=== PATIENT | female | born 1955 | race Caucasian/White ===

== ENCOUNTER 2020-11-24 08:38 | Observation (INO) | payer OTHER ==
--- OUTSIDE RECORDS SUMMARY | 2020-11-24 08:44 | XMS REPORT | Continuity of Care Document ---
:1955 Author Organization [facility] t Address [address] [place] [address] Care Team Providers Name Role Phone Doctor Unassigned, Name Attending Clinician Unavailable Michael HUYNH Attending Clinician Jazlyn HUYNH S Attending Clinician Osei HUYNH Attending Clinician Pob1, Care Clinic Attending Clinician Unavailable Osei HUYNH Admitting Clinician Problems This patient has no known problems. Allergies, Adverse Reactions, Alerts This patient has no known allergies or adverse reactions. Medications This patient has no known medications. Procedures This patient has no known procedures. Encounters Start End Encounter Admission Attending Care Care Encounter Source Date/Time Date/Time Type Type Clinicians Facility Department ID 2020-05-06 2020-05-06 Outpatient [facility]BL [id number] 12:26:00 12:26:00 2019-11-04 2019-11-04 Orders Doctor PUENTE [id number] 00:00:00 00:00:00 Only UnassDARREL irizarry [id number] Reform [facility] [id number] 2019-10-15 2019-10-16 Emergency Anjel Rodriguez [facility] [id number] 17:09:10 18:24:00 Montserrat Hobson [id number] Chantelle Franz [id number] [place] [id number] 2019-10-15 2019-10-15 Urgent Pob1, Acute [facility] [id number] 16:00:05 16:20:05 [facility] [id number] [place] [id number] [place] [phone] [address] Results This patient has no known results.
[2020-11-24 09:13] LABS: Absolute Lymphocytes (CBC) 1.9 K/uL (0.7-4.9); Basophils % 1.7 % (0-1.3); Lymphocytes % 26.4 % (15.3-44.8); MPV 9.3 fL (7.6-11.3); RBC Red Blood Cell Count 4.88 M/uL (3.86-4.86)
[2020-11-24 09:21] LABS: Protime INR 1.04
[2020-11-24] MEDS ORDERED: NA CHLORIDE 0.9% 1,000 ML ONE (09:25)
[2020-11-24] MEDS ORDERED: FAMOTIDINE 20 MG/2 ML VIAL IV ONE (09:25)
[2020-11-24] MEDS ORDERED: MORPHINE 2 MG/ML SYR ONE (09:25)
[2020-11-24] MEDS ORDERED: ONDANSETRON 4 MG/2 ML VIAL ONE ×2 (09:25→13:26)
[2020-11-24 09:36] LABS: ALT/SGPT 36 U/L (12-78); AST/SGOT 31 U/L (15-37); Albumin 4.3 g/dL (3.4-5.0); Alkaline Phosphatase 85 U/L (45-117); BUN Blood Urea Nitrogen 23 mg/dL (7-18); Bicarbonate 25 mmol/L (21-32); Bilirubin Direct 0.2 mg/dL (0-0.2); Bilirubin Total 1.2 mg/dL (0.2-1.0); Glucose Level 107 mg/dL (74-106); Lipase 108 U/L (73-393); Magnesium 2.1 mg/dL (1.8-2.4); NT PRO-BNP 521 pg/mL (<125); Potassium 4.7 mmol/L (3.5-5.1); Protein, Total 8.4 g/dL (6.4-8.2); Sodium Level 125 mmol/L (136-145); Troponin (Emerg Dept Use Only) < 0.02 ng/mL (0.0-0.045)
[2020-11-24 09:59] LABS: Platelet Estimate ADEQ; White Blood Cell Scan OK (OK)
[2020-11-24 10:00] LABS: Blood Morphology Comment NOT SEEN (NOT SEEN); Platelets, Giant NOTED
--- NOTE | 2020-11-24 10:15 | ER ---
Nurse's Notes [facility] Name: Alejandrina Russo Age: 65 yrs Sex: Female : 1955 Arrival Date: 11/24/2020 Time: 08:[address] Private MD: Diagnosis: Hypo-osmolality and hyponatremia;Vomiting;Weakness;Other malaise and fatigue Presentation: 11/24 08:44 Chief complaint: Patient states: dry heaving, n/v, RUQ pain, chills x 2 days. Denies sv diarrhea. Coronavirus screen: Client denies travel out of the [place] in the last 14 days. At this time, the client does not indicate any symptoms associated with coronavirus-19. Ebola Screen: No symptoms or risks identified at this time. Risk Assessment: Do you want to hurt yourself or someone else? Patient reports no desire to harm self or others. Onset of symptoms was November 22, 2020. 08:44 Method Of Arrival: Ambulatory sv 08:44 Acuity: HE 2 sv 08:46 Initial Sepsis Screen: Does the patient meet any 2 criteria? HR > 90 bpm. No. Patient's sv initial sepsis screen is negative. Does the patient have a suspected source of infection? No. Patient's initial sepsis screen is negative. Historical: - Allergies: 08:45 No Known Allergies; sv - PMHx: 08:45 None; sv - PSHx: 08:45 R mastectomy; abdomen; Spleenectomy; sv - Immunization history:: Client reports having NOT received the Covid vaccine. - Social history:: Smoking status: Reported history of juuling and/or vaping. Screenin:14 Abuse screen: Denies threats or abuse. Denies injuries from another. Nutritional jl7 screening: No deficits noted. Tuberculosis screening: No symptoms or risk factors identified. Fall Risk IV access (20 points). Total Craig Fall Scale indicates No Risk (0-24 pts). Assessment: 09:10 General: Appears in no apparent distress. uncomfortable, Behavior is calm, cooperative, jl7 appropriate for age. Pain: Complains of pain in right upper quadrant Pain currently is 8 out of 10 on a pain scale. Pain began 2-3 days ago. Is continuous. Neuro: Level of Consciousness is awake, alert, obeys commands, Oriented to person, place, time, situation. Cardiovascular: Patient's skin is warm and dry. Respiratory: Airway is patent Respiratory effort is even, unlabored, Respiratory pattern is regular, symmetrical. GI: Abdomen is non-distended, Reports upper abdominal pain, nausea, vomiting. Derm: Skin is pink, warm \T\ dry. 09:46 Reassessment: Patient appears in no apparent distress at this time. Patient states jl7 feeling better. Patient states symptoms have improved. 10:28 Reassessment: Patient appears in no apparent distress at this time. No changes from jl7 previously documented assessment. Patient and/or family updated on plan of care and expected duration. Pain level reassessed. Patient is alert, oriented x 3, equal unlabored respirations, skin warm/dry/pink. 11:30 Reassessment: Patient appears in no apparent distress at this time. No changes from jl7 previously documented assessment. Patient and/or family updated on plan of care and expected duration. Pain level reassessed. Patient is alert, oriented x 3, equal unlabored respirations, skin warm/dry/pink. Patient denies pain at this time. 12:30 Reassessment: Patient appears in no apparent distress at this time. No changes from jl7 previously documented assessment. Patient and/or family updated on plan of care and expected duration. Pain level reassessed. Patient is alert, oriented x 3, equal unlabored respirations, skin warm/dry/pink. 13:10 Reassessment: Chari Jennings NP gave VO for 4 mg Zofran IVP, administered as ordered. jl7 Vital Signs: 08:46 BP 141 / 112; Pulse 104; Resp 20; Temp 98(O); Pulse Ox 99% on R/A; Weight 49.9 kg; sv Height 5 ft. 7 in. (170.18 cm); 09:14 BP 133 / 82; Pulse 86; Resp 15; Pulse Ox 100% ; jl7 09:46 BP 133 / 97; Pulse 74; Resp 15; Pulse Ox 100% ; jl7 10:28 BP 106 / 61; Pulse 65; Resp 15; Pulse Ox 100% ; jl7 12:31 BP 135 / 94; Pulse 66; Resp 15; Pulse Ox 97% on R/A; jl7 08:46 Body Mass Index 17.23 (49.90 kg, 170.18 cm) sv ED Course: 08:39 Patient arrived in ED. as 08:45 Triage completed. sv 08:48 Arm band placed on. sv 08:49 Jigar Cook MD is Attending Physician. celeste 08:57 Jared Bryan, MITESH is Primary Nurse. jl7 09:14 Patient has correct armband on for positive identification. Bed in low position. Call jl7 light in reach. Side rails up X 1. satellite project site monitor on. Pulse ox on. NIBP on. 09:14 Initial lab(s) drawn, by ED staff, sent to lab. COVID swab sent to lab. Inserted saline jl7 lock: 20 gauge in left antecubital area, using aseptic technique. ,using aseptic technique. inserted by , private security guard Blood collected. 09:17 XRAY Chest (1 view) In Process Unspecified. EDMS 09:25 US Abdomen Limited In Process Unspecified. EDMS 09:46 EKG done, by ED staff, reviewed by Jigar Cook MD. jl7 09:59 CT Abd/Pelvis - IV Contrast Only In Process Unspecified. EDMS 10:11 Fernando Cruz is Hospitalizing Provider. [facility] 12:30 No provider procedures requiring assistance completed. Patient admitted, IV remains in jl7 place. intact, No redness/swelling at site. Administered Medications: 09:06 Drug: Zofran (Ondansetron) 4 mg Route: IVP; Site: left antecubital; jl7 09:46 Follow up: Response: Nausea is decreased jl7 09:07 Drug: morphine 2 mg Route: IVP; Site: left antecubital; jl7 09:46 Follow up: Response: No adverse reaction; Pain is decreased jl7 09:40 Drug: NS 0.9% 1000 ml Route: IV; Rate: 1 bolus; Site: left antecubital; jl7 11:00 Follow up: Response: No adverse reaction; IV Status: Completed infusion; IV Intake: jl7 1000ml 09:40 Drug: Pepcid (famotidine) 20 mg Route: IVP; Site: left antecubital; jl7 12:32 Follow up: Response: No adverse reaction jl7 13:10 Drug: Zofran (Ondansetron) 4 mg Route: IVP; Site: left antecubital; jl7 13:18 Follow up: Response: Nausea is decreased jl7 Intake: 11:00 IV: 1000ml; Total: 1000ml. jl7 Outcome: 10:15 Decision to Hospitalize by Provider. celeste 13:10 Admitted to Med/surg accompanied by tech, via wheelchair, room 218, on monitor, Report jl7 called to MITESH Espitia 13:10 Condition: stable 13:10 Discharge instructions given to patient, family, Instructed on the need for admit, Demonstrated understanding of instructions. 13:19 Patient left the ED. jl7 Signatures: Dispatcher [employer] Elba Momin, MITESH RN Jigar Monsivais MD MD cha Martinez, Amelia as Leal, Jahala, RN RN jl7 Corrections: (The following items were deleted from the chart) 08:48 08:44 Acuity: HE 3 [facility] 09:45 09:14 Inserted saline lock: 22 gauge in left antecubital area, using aseptic technique. jl7 Blood collected. jl7
--- NOTE | 2020-11-24 10:16 | RAD REPORT ---
EXAM DESCRIPTION: CT - Abdomen Pelvis W Contrast - 11/24/2020 9:59 am CLINICAL HISTORY: Abdominal pain, vomiting and diarrhea. COMPARISON: 02/05/2020 TECHNIQUE: Biphasic, helical CT imaging of the abdomen and pelvis was performed following oral and 1 00 ml non-ionic IV contrast. All CT scans are performed using dose optimization technique as appropriate and may include automated exposure control or mA/KV adjustment according to patient size. FINDINGS: No suspicious findings in the lung bases. Surgical changes from splenectomy. Hyperdense nodules medial to the left kidney sinus adjacent to the left hemidiaphragm likely representing stenosis. The pancreas is unremarkable. 8 millimeter structure along the upper pole the right kidney, not clearly arising from the kidney and possibly also represent splenosis. A similar finding was present on the 02/05/2020 CT No dilated bowel loops or bowel wall thickening. No free air, free fluid or inflammatory stranding. N o hernia, mass or bulky lymphadenopathy. The urinary bladder is without significant finding. Advanced left hip degenerative changes. Scattered degenerative changes are present in the lumbar spin e. IMPRESSION: No acute findings within the abdomen or pelvis. 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 Recommend 12 month follow-up CT.
--- NOTE | 2020-11-24 10:16 | EDPHYS ---
Physician Documentation [facility] Name: Alejandrina Russo Age: 65 yrs Sex: Female : 1955 Arrival Date: 11/24/2020 Time: 08:[address] Private MD: KVNG Physician Jigar Cook HPI: 11/24 08:59 This 65 yrs old Female presents to ER via Ambulatory with complaints of celeste Abdominal Pain, Nausea/Vomiting. 08:59 The patient presents to the emergency department with nausea, vomiting, abdominal pain, celeste of the posterior aspect of right lateral abdomen, anterior aspect of right lateral abdomen and right upper quadrant. Onset: The symptoms/episode began/occurred 3 day(s) ago. Possible causes: unknown. The symptoms are aggravated by nothing. The symptoms are alleviated by nothing. Associated signs and symptoms: The patient has no apparent associated signs or symptoms. Severity of symptoms: At their worst the symptoms were mild moderate in the emergency department the symptoms are unchanged. The patient has not experienced similar symptoms in the past. Historical: - Allergies: 08:45 No Known Allergies; sv - PMHx: 08:45 None; sv - PSHx: 08:45 R mastectomy; abdomen; Spleenectomy; sv - Immunization history:: Client reports having NOT received the Covid vaccine. - Social history:: Smoking status: Reported history of juuling and/or vaping. ROS: 08:59 Constitutional: Negative for fever, chills, and weight loss, Eyes: Negative for injury, celeste pain, redness, and discharge, ENT: Negative for injury, pain, and discharge, Neck: Negative for injury, pain, and swelling, Cardiovascular: Negative for chest pain, palpitations, and edema, Respiratory: Negative for shortness of breath, cough, wheezing, and pleuritic chest pain, Back: Negative for injury and pain, : Negative for injury, bleeding, discharge, and swelling, MS/Extremity: Negative for injury and deformity, Skin: Negative for injury, rash, and discoloration, Neuro: Negative for headache, weakness, numbness, tingling, and seizure, Psych: Negative for depression, anxiety, suicide ideation, homicidal ideation, and hallucinations, Allergy/Immunology: Negative for hives, rash, and allergies, Endocrine: Negative for neck swelling, polydipsia, polyuria, polyphagia, and marked weight changes, Hematologic/Lymphatic: Negative for swollen nodes, abnormal bleeding, and unusual bruising. 08:59 Abdomen/GI: Positive for abdominal pain, nausea and vomiting, of the right upper quadrant. Exam: 08:59 Constitutional: This is a well developed, well nourished patient who is awake, alert, celeste and in no acute distress. Head/Face: Normocephalic, atraumatic. Eyes: Pupils equal round and reactive to light, extra-ocular motions intact. Lids and lashes normal. Conjunctiva and sclera are non-icteric and not injected. Cornea within normal limits. Periorbital areas with no swelling, redness, or edema. ENT: Nares patent. No nasal discharge, no septal abnormalities noted. Tympanic membranes are normal and external auditory canals are clear. Oropharynx with no redness, swelling, or masses, exudates, or evidence of obstruction, uvula midline. Mucous membranes moist. Neck: Trachea midline, no thyromegaly or masses palpated, and no cervical lymphadenopathy. Supple, full range of motion without nuchal rigidity, or vertebral point tenderness. No Meningismus. Chest/axilla: Normal chest wall appearance and motion. Nontender with no deformity. No lesions are appreciated. Cardiovascular: Regular rate and rhythm with a normal S1 and S2. No gallops, murmurs, or rubs. Normal PMI, no JVD. No pulse deficits. Respiratory: Lungs have equal breath sounds bilaterally, clear to auscultation and percussion. No rales, rhonchi or wheezes noted. No increased work of breathing, no retractions or nasal flaring. Back: No spinal tenderness. No costovertebral tenderness. Full range of motion. Female : Normal external genitalia. Skin: Warm, dry with normal turgor. Normal color with no rashes, no lesions, and no evidence of cellulitis. MS/ Extremity: Pulses equal, no cyanosis. Neurovascular intact. Full, normal range of motion. Neuro: Awake and alert, GCS 15, oriented to person, place, time, and situation. Cranial nerves II-XII grossly intact. Motor strength 5/5 in all extremities. Sensory grossly intact. Cerebellar exam normal. Normal gait. Psych: Awake, alert, with orientation to person, place and time. Behavior, mood, and affect are within normal limits. 08:59 Abdomen/GI: Inspection: abdomen appears normal, Bowel sounds: normal, Palpation: mild abdominal tenderness, in the posterior aspect of right lateral abdomen, anterior aspect of right lateral abdomen and right upper quadrant, Liver: no appreciated palpable abnormalities, Hernia: not appreciated. 09:01 Musculoskeletal/extremity: DVT Exam: No signs of deep vein thrombosis. no pain, no celeste swelling, no tenderness, negative Homans' sign noted on exam, no appreciated bluish discoloration, no erythema, no increased warmth. 09:45 ECG was reviewed by the Attending Physician. [facility] Vital Signs: 08:46 BP 141 / 112; Pulse 104; Resp 20; Temp 98(O); Pulse Ox 99% on R/A; Weight 49.9 kg; sv Height 5 ft. 7 in. (170.18 cm); 09:14 BP 133 / 82; Pulse 86; Resp 15; Pulse Ox 100% ; jl7 09:46 BP 133 / 97; Pulse 74; Resp 15; Pulse Ox 100% ; jl7 10:28 BP 106 / 61; Pulse 65; Resp 15; Pulse Ox 100% ; jl7 12:31 BP 135 / 94; Pulse 66; Resp 15; Pulse Ox 97% on R/A; jl7 08:46 Body Mass Index 17.23 (49.90 kg, 170.18 cm) sv MDM: 08:49 Patient medically screened. [facility] 09:02 Differential diagnosis: Nonspecific abd pain, gastritis, cholecystitis, pancreatitis, celeste diverticulitis, viral gastroenteritis, gastroenteritis. Data reviewed: vital signs, nurses notes, lab test result(s), EKG, radiologic studies, CT scan, plain films, ultrasound. Data interpreted: youth nutritional monitor: rate is 104 beats/min, rhythm is regular, Pulse oximetry: on room air is 99 %. Test interpretation: by ED physician or midlevel provider: ECG, plain radiologic studies. Counseling: I had a detailed discussion with the patient and/or guardian regarding: the historical points, exam findings, and any diagnostic results supporting the discharge/admit diagnosis, lab results, radiology results. 11/24 08:58 Order name: Basic Metabolic Panel; Complete Time: 10:07 [facility] 11/24 08:58 Order name: CBC with Diff; Complete Time: 10:07 [facility] 11/24 08:58 Order name: LFT's; Complete Time: 10:07 [facility] 11/24 08:58 Order name: Magnesium; Complete Time: 10:07 [facility] 11/24 08:58 Order name: NT PRO-BNP; Complete Time: 10:07 [facility] 11/24 08:58 Order name: PT-INR; Complete Time: 10:07 [facility] 11/24 08:58 Order name: Troponin (emerg Dept Use Only); Complete Time: 10:07 [facility] 11/24 08:58 Order name: Lipase; Complete Time: 10:07 [facility] 11/24 08:58 Order name: Urine Culture [facility] 11/24 09:17 Order name: CBC Smear Scan; Complete Time: 10:07 [facility] 11/24 10:10 Order name: Urine Osmolality [facility] 11/24 10:10 Order name: Urine Sodium Random [facility] 11/24 10:10 Order name: Osmolality, Serum [facility] 11/24 08:58 Order name: XRAY Chest (1 view) [facility] 11/24 08:58 Order name: EKG; Complete Time: 08:59 [facility] 11/24 08:58 Order name: Cardiac monitoring; Complete Time: 09:46 [facility] 11/24 08:58 Order name: EKG - Nurse/Tech; Complete Time: 09:46 [facility] 11/24 08:58 Order name: IV Saline Lock; Complete Time: 09:10 [facility] 11/24 08:58 Order name: Labs collected and sent; Complete Time: 09:10 [facility] 11/24 08:58 Order name: O2 Per Protocol; Complete Time: 09:10 [facility] 11/24 08:58 Order name: US Abdomen Limited [facility] 11/24 08:58 Order name: CT Abd/Pelvis - IV Contrast Only [facility] 11/24 10:17 Order name: Urine Dipstick-Ancillary [facility] 11/24 10:31 Order name: SARS-COV-2 RT PCR [facility] 11/24 08:58 Order name: O2 Sat Monitoring; Complete Time: 09:10 [facility] 11/24 08:58 Order name: Urine Dipstick-Ancillary (obtain specimen); Complete Time: 10:20 [facility] EC:45 Rate is 69 beats/min. Rhythm is regular. QRS [place] is Normal. IN interval is normal. QRS celeste interval is normal. QT interval is normal. No Q waves. T waves are Normal. No ST changes noted. Clinical impression: NSR w/ Non-specific ST/T Changes and No evidence of ischemia. Interpreted by me. Reviewed by me. Administered Medications: 09:06 Drug: Zofran (Ondansetron) 4 mg Route: IVP; Site: left antecubital; jl7 09:46 Follow up: Response: Nausea is decreased jl7 09:07 Drug: morphine 2 mg Route: IVP; Site: left antecubital; jl7 09:46 Follow up: Response: No adverse reaction; Pain is decreased jl7 09:40 Drug: NS 0.9% 1000 ml Route: IV; Rate: 1 bolus; Site: left antecubital; jl7 11:00 Follow up: Response: No adverse reaction; IV Status: Completed infusion; IV Intake: jl7 1000ml 09:40 Drug: Pepcid (famotidine) 20 mg Route: IVP; Site: left antecubital; jl7 12:32 Follow up: Response: No adverse reaction jl7 13:10 Drug: Zofran (Ondansetron) 4 mg Route: IVP; Site: left antecubital; jl7 13:18 Follow up: Response: Nausea is decreased jl7 Disposition Summary: 11/24/20 10:15 Hospitalization Ordered Hospitalization Status: Observation celeste Provider: Fernando Cruz cha Location: Telemetry/MedSurg (observation) celeste Condition: Stable celeste Problem: new celeste Symptoms: have improved celeste Bed/Room Type: Standard [facility] Room Assignment: 218(11/24/20 12:23) dw Diagnosis - Hypo-osmolality and hyponatremia celeste - Vomiting celeste - Weakness celeste - Other malaise and fatigue celeste Forms: - Medication Reconciliation Form celeste - SBAR form celeste Signatures: Dispatcher [employer] Elba Momin RN RN sv Woody, Diana, RN RN dw Anderson, Corey, MD MD cha Leal, Jahala, RN RN jl7 Corrections: (The following items were deleted from the chart) 09:34 08:59 CORONAVIRUS+MR.LAB.BRZ ordered. EDRI EDMS 12:23 10:15 celeste dw
[2020-11-24 10:17] LABS: Urine Blood Negative (Negative); Urine Glucose Negative (Negative); Urine Protein Negative (Negative); Urine Specific Gravity 1.015 (1.005-1.030); Urine pH 5.5 (5.0-7.0)
--- NOTE | 2020-11-24 10:19 | RAD REPORT ---
EXAM DESCRIPTION: RAD - Chest Single View - 11/24/2020 9:17 am CLINICAL HISTORY: Pain cough abdominal since COMPARISON: 02/18/2020 TECHNIQUE: AP portable chest image was obtained . FINDINGS: Emphysema again noted with some residual scarring in the left upper lobe and at the left l [place] base. Similar chronic blunting of the left costophrenic angle. The right lung is clear. The heart size is within normal limits. No fractures are identified. IMPRESSION: Chronic changes without superimposed acute process identified. The patient may be a cand idate for annual low-dose lung cancer screening CT.
--- NOTE | 2020-11-24 10:20 | RAD REPORT ---
EXAM DESCRIPTION: US - Abdomen Exam Limited - 11/24/2020 9:27 am CLINICAL HISTORY: Abdominal pain COMPARISON: 11/24/2020 FINDINGS: Negative for cholelithiasis. Gallbladder sludge is noted. No biliary ductal dilatation. Ne gative sonographic Arita's sign. No stones are seen. Negative for cholelithiasis or acute cholecystitis.
[2020-11-24] MEDS ORDERED: ONDANSETRON 4 MG/2 ML VIAL IV PRN ×2 (12:03→21:07)
[2020-11-24] MEDS ORDERED: ACETAMINOPHEN 500 MG TAB PO PRN (12:03)
[2020-11-24] MEDS ORDERED: SODIUM CHLORIDE 0.9% 10ML INJ IV PRN (12:19)
--- NOTE | 2020-11-24 12:49 | P.HP ---
Certification for Inpatient Patient admitted to: Observation Patient will require the following post-hospital care: None Practitioner: I am a practitioner with admitting privileges, knowledge of patient current condition, hospital course, and medical plan of care. Services: Services provided to patient in accordance with Admission requirements found in Title 42 Section 412.3 of the Code of Federal Regulations <Chari Jennings - Last Filed: 11/24/20 13:54> Patient History Date of Service: 11/24/20 Primary Care Provider: LARISSA Mcgregor at [facility] Reason for admission: feeling weak, hyponatremia History of Present Illness: This is a 65 y/o F w/ history of breast cancer s/p masectomy, diverticulosis, HTN, who presents w/ intermittent RUQ pain and feeling weak. She states the pain feels similar to when she was diagnosed with diverticulosis but the pain has never been this severe 02/28. She has been feeling weak and has not been able to keep water down without vomiting for several days. She has been feeling unwell for the past month due to a sinus infection which she was prescribed steroids and antibiotics. She did not finish her course of antibiotics due to episodes of hypotension last week but states her sinus symptoms have completely resolved. She c/o chills, nausea, muscle cramps. She reports unintentional weight loss, 15 lbs in the past 6 weeks. Denies any fevers, urinary symptoms. In the ER, she was found to be hyponatremic 125. Given zofran, morphine, pepcid, 1L bolus. She reports feeling better. abdomen u/s: Negative for cholelithiasis. Gallbladder sludge is noted. No biliary ductal dilatation. Negative sonographic Arita's sign. No stones are seen. Negative for cholelithiasis or acute cholecystitis. abdomen CT: No acute findings within the abdomen or pelvis. Re- demonstrated changes of splenectomy and splenosis Small hyperdense nodule along the superior pole of the right kidney may be a manifestation of splenosis is well and is similar to 02/05/2020. Recommend 12 month follow-up CT. CXR: IMPRESSION: Chronic changes without superimposed acute process identified. The patient may be a candidate for annual low-dose lung cancer screening CT. - Past Medical/Surgical History Diabetic: No -: breast cancer -: HTN -: diverticulosis -: masectomy -: splenectomy -: hip fracture Psychosocial/ Personal History: lives with daughter - Family History Mother -: Other (see notes) (thyroid disease) Brother -: Heart disease - Social History Smoking Status: Former smoker Alcohol use: No CD- Drugs: Yes Caffeine use: Yes <Chari Jennings - Last Filed: 11/24/20 13:54> Date of Service: 11/24/20 <Dk Coppola - Last Filed: 11/24/20 19:41> Allergies No Known Allergies Allergy (Unverified 11/24/20 14:26) Home Medications: Alprazolam [Xanax] 1 mg PO TID 11/24/20 Omeprazole [Prilosec] 40 mg PO DAILYPRN PRN 11/24/20 lisinopriL [Lisinopril] 40 mg PO DAILY 11/24/20 Review of Systems 10-point ROS is otherwise unremarkable <Dk Coppola - Last Filed: 11/24/20 19:41> Physical Examination - Physical Exam General: Alert, Oriented x3, Cooperative HEENT: Atraumatic, Other (dry mucous membranes), EOMI Respiratory: Clear to auscultation bilaterally, Normal air movement Cardiovascular: No edema, Regular rate/rhythm, Normal S1 S2 Capillary refill: <2 Seconds Gastrointestinal: Normal bowel sounds, Soft and benign, Non-distended, No guarding Musculoskeletal: No clubbing, No swelling, No tenderness Integumentary: No rashes, No erythema, No warmth Neurological: Normal speech, Normal tone, Normal affect - Studies Laboratory Data (last 24 hrs) 11/24/20 09:00: PT 12.0, INR 1.04 11/24/20 09:00: WBC 7.30, Hgb 14.5, Hct 43.0, Plt Count 263 11/24/20 09:00: Sodium 125 L, Potassium 4.7, BUN 23 H, Creatinine 1.25, Glucose 107 H, Magnesium 2.1, Total Bilirubin 1.2 H, AST 31, ALT 36, Alkaline Phosphatase 85, Lipase 108 <Chari Jennings - Last Filed: 11/24/20 13:54> - Studies Laboratory Data (last 24 hrs) 11/24/20 09:00: PT 12.0, INR 1.04 11/24/20 09:00: WBC 7.30, Hgb 14.5, Hct 43.0, Plt Count 263 07/06/21 09:00: Sodium 125 L, Potassium 4.7, BUN 23 H, Creatinine 1.25, Glucose 107 H, Magnesium 2.1, Total Bilirubin 1.2 H, AST 31, ALT 36, Alkaline Phosphatase 85, Lipase 108 <Dk Coppola - Last Filed: 11/24/20 19:41> Assessment and Plan - Plan impression: fatigue likely secondary to hypovolemic hyponatremia RUQ pain with associated nausea HTN plan: fatigue likely secondary to hypovolemic hyponatremia: likely due to recent poor oral intake and dehydration. will continue IVF. trend BMP. ordered TSH/T4. clear liquid diet as tolerated. nephrology consult and await recommendations. RUQ pain with associated nausea: imaging negative for any acute processes. zofran prn, pepcid, protonix, carafate. HTN: verify and restart home meds. continue to monitor BP. Discharge Plan: Home Plan to discharge in: 24 Hours - Advance Directives Does patient have a Living Will: No Does patient have a Durable POA for Healthcare: No - Code Status/Comfort Care Code Status Assessed: Yes Time Spent Managing Pts Care (In Minutes): 55 <Chari Jennings - Last Filed: 11/24/20 13:54> - Plan Plan of care reviewed with Chari Jennings Fatigue, Hyponatremia - likely due to hypovolemia Pt reported poor PO intake/dehydration RUQ pain w/ nausea - unclear etiology, CT negative, reported remote history with similar presentation CLD, ADAT recheck BMP this afternoon, unclear hyponatremia is acute vs chronic, likely acute <Dk Coppola - Last Filed: 11/24/20 19:41>
[2020-11-24 14:28] VITALS: BMI 16.7
[2020-11-24] MEDS: SUCRALFATE 1 GM TABLET PO SCH ×3 (16:20→21:49)
[2020-11-24] MEDS: ENOXAPARIN 40 MG/0.4 ML SQ SCH (16:20)
[2020-11-24] MEDS: NA CHLORIDE 0.9% 1,000 ML IV SCH ×2 (16:20→21:57)
[2020-11-24 17:11] LABS: Potassium 5.2 mmol/L (3.5-5.1)
[2020-11-24] MEDS ORDERED: MELATONIN 5 MG TABLET PO PRN (21:04)
[2020-11-24] MEDS ORDERED: PROMETHAZINE INJ 25 MG/ML AMP IV PRN (21:07)
[2020-11-24] MEDS: ALPRAZOLAM 1 MG TABLET PO PRN (21:50)
[2020-11-24] MEDS: PANTOPRAZOLE 40 MG INJ IVP SCH (21:50)
[2020-11-24] MEDS: FAMOTIDINE 20 MG/2 ML VIAL IV SCH (21:50)
[2020-11-25 06:24] LABS: Phosphorus 2.5 mg/dL (2.5-4.9); Potassium 4.4 mmol/L (3.5-5.1); Thyroid Stimulating Hormone 1.65 uIU/mL (0.360-3.740)
[2020-11-25] MEDS: PANTOPRAZOLE 40 MG INJ IVP SCH (08:11)
[2020-11-25] MEDS: SUCRALFATE 1 GM TABLET PO SCH ×2 (08:12→13:51)
[2020-11-25] MEDS: ENOXAPARIN 40 MG/0.4 ML SQ SCH (08:12)
[2020-11-25 08:15] LABS: Basophils % 3.2 % (0-1.3); Hematocrit 35.9 % (36.0-45.0); Lymphocytes % 26.6 % (15.3-44.8); MPV 10.4 fL (7.6-11.3); RBC Red Blood Cell Count 4.03 M/uL (3.86-4.86)
[2020-11-25 08:33] LABS: ALT/SGPT 36 U/L (12-78); AST/SGOT 29 U/L (15-37); Albumin 3.4 g/dL (3.4-5.0); Alkaline Phosphatase 65 U/L (45-117); Bilirubin Direct 0.2 mg/dL (0-0.2); Bilirubin Total 0.9 mg/dL (0.2-1.0); Protein, Total 6.4 g/dL (6.4-8.2)
[2020-11-25 08:35] LABS: C-Reactive Protein < 2.90 mg/L (<3.00)
--- NOTE | 2020-11-25 08:51 | P.CNS ---
Date of Consult: 11/25/20 Reason for Consult: Hyponatremia Requesting Physician: Dk Coppola Primary Care Provider: LARISSA Mcgregor at [facility] Chief Complaint: feeling weak, hyponatremia History of Present Illness: This is a 65 y/o F w/ history of breast cancer s/p masectomy, diverticulosis, HTN, who presents w/ intermittent RUQ pain and feeling weak. She states the pain feels similar to when she was diagnosed with diverticulosis but the pain has never been this severe 02/28. She has been feeling weak and has not been able to keep water down without vomiting for several days. She has been feeling unwell for the past month due to a sinus infection which she was prescribed steroids and antibiotics. She did not finish her course of antibiotics due to episodes of hypotension last week but states her sinus symptoms have completely resolved. She c/o chills, nausea, muscle cramps. She reports unintentional weight loss, 15 lbs in the past 6 weeks. Denies any fevers, urinary symptoms. 08:59 This 65 yrs old Female presents to ER via Ambulatory with complaints of celeste Abdominal Pain, Nausea/Vomiting. 08:59 The patient presents to the emergency department with nausea, vomiting, abdominal pain, celeste of the posterior aspect of right lateral abdomen, anterior aspect of right lateral abdomen and right upper quadrant. Onset: The symptoms/episode began/occurred 3 day(s) ago. Possible causes: unknown. The symptoms are aggravated by nothing. The symptoms are alleviated by nothing. Associated signs and symptoms: The patient has no apparent associated signs or symptoms. Severity of symptoms: At their worst the symptoms were mild moderate in the emergency department the symptoms are unchanged. The patient has not experienced similar symptoms in the past. Allergies No Known Allergies Allergy (Unverified 11/24/20 14:26) Home medications list reviewed: Yes Home Medications: Alprazolam [Xanax] 1 mg PO TID 11/24/20 Omeprazole [Prilosec] 40 mg PO DAILYPRN PRN 11/24/20 lisinopriL [Lisinopril] 40 mg PO DAILY 11/24/20 - Past Medical/Surgical History Diabetic: No -: breast cancer -: HTN -: diverticulosis -: Insomnia -: masectomy -: splenectomy -: hip fracture Psychosocial/ Personal History: lives with daughter - Family History Mother Medical History: Other (see notes) (thyroid disease) Brother Medical History: Heart disease - Social History Alcohol use: No CD- Drugs: Yes Caffeine use: Yes Place of Residence: Home Review of Systems 10-point ROS is otherwise unremarkable General: Weakness, Malaise Gastrointestinal: Nausea Physical Examination Temp Pulse Resp BP Pulse Ox 98.4 F 62 17 115/60 94 11/25/20 04:00 11/25/20 04:00 11/25/20 04:00 11/25/20 04:00 11/25/20 04:00 General: In no apparent distress, Oriented x3, Cooperative HEENT: Atraumatic Neck: Supple Respiratory: Clear to auscultation bilaterally Cardiovascular: No edema, Regular rate/rhythm Gastrointestinal: Soft and benign, Non-distended Musculoskeletal: No clubbing, No contractures Integumentary: No rashes, No erythema, No cyanosis Neurological: Normal speech Laboratory Data (last 24 hrs) 11/24/20 09:00: PT 12.0, INR 1.04 11/24/20 09:00: WBC 7.30, Hgb 14.5, Hct 43.0, Plt Count 263 11/24/20 09:00: Sodium 125 L, Potassium 4.7, BUN 23 H, Creatinine 1.25, Glucose 107 H, Magnesium 2.1, Total Bilirubin 1.2 H, AST 31, ALT 36, Alkaline Phosphatase 85, Lipase 108 Imagings Data: EXAM DESCRIPTION: US - Abdomen Exam Limited - 11/24/2020 9:27 am CLINICAL HISTORY: Abdominal pain COMPARISON: 11/24/2020 FINDINGS: Negative for cholelithiasis. Gallbladder sludge is noted. No biliary ductal dilatation. Negative sonographic Arita's sign. No stones are seen. Negative for cholelithiasis or acute cholecystitis. EXAM DESCRIPTION: CT - Abdomen Pelvis W Contrast - 11/24/2020 9:59 am CLINICAL HISTORY: Abdominal pain, vomiting and diarrhea. COMPARISON: 02/05/2020 TECHNIQUE: Biphasic, helical CT imaging of the abdomen and pelvis was performed following oral and 100 ml non-ionic IV contrast. All CT scans are performed using dose optimization technique as appropriate and may include automated exposure control or mA/KV adjustment according to patient size. FINDINGS: No suspicious findings in the lung bases. Surgical changes from splenectomy. Hyperdense nodules medial to the left kidney sinus adjacent to the left hemidiaphragm likely representing stenosis. The pancreas is unremarkable. 8 millimeter structure along the upper pole the right kidney, not clearly arising from the kidney and possibly also represent splenosis. A similar finding was present on the 02/05/2020 CT No dilated bowel loops or bowel wall thickening. No free air, free fluid or inflammatory stranding. No hernia, mass or bulky lymphadenopathy. The urinary bladder is without significant finding. Advanced left hip degenerative changes. Scattered degenerative changes are present in the lumbar spine. IMPRESSION: No acute findings within the abdomen or pelvis. 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 Recommend 12 month follow-up CT. EXAM DESCRIPTION: RAD - Chest Single View - 11/24/2020 9:17 am CLINICAL HISTORY: Pain cough abdominal since COMPARISON: 02/18/2020 TECHNIQUE: AP portable chest image was obtained . FINDINGS: Emphysema again noted with some residual scarring in the left upper lobe and at the left lung base. Similar chronic blunting of the left costophrenic angle. The right lung is clear. The heart size is within normal limits. No fractures are identified. IMPRESSION: Chronic changes without superimposed acute process identified. The patient may be a candidate for annual low-dose lung cancer screening CT. Conclusions/Impression: Hypoosmolar Hyponatremia in the setting of N/V and Anorexia -Continue IVF with NS -Encourage nutrition Hyperkalemia -Monitor potassium Hypocalcemia -Start Vitamin D3 Daily HTN -Hold Lisinopril at this time Anemia in chronic illness -Monitor H&H Thank you kindly for the consultation.
--- NOTE | 2020-11-25 10:23 | P.PN ---
Subjective Date of Service: 11/25/20 Primary Care Provider: LARISSA Mcgregor at [facility] Chief Complaint: feeling weak, hyponatremia Subjective: Worsening (felt better last night, now worse, more nausea/dry- heaving, with RUQ pain intermittently, overall feels "bad", feels like she "is dying". unable to be more specific. +flatus, no distention) Review of Systems 10-point ROS is otherwise unremarkable Physical Examination - Vital Signs Temperature: 98.4 F Blood Pressure: 115/60 Pulse: 62 Respirations: 17 Pulse Ox (%): 94 Assessment & Plan Physician Review Additional Text: Physical Exam General: AAOx3, mild-mod distress, uncomfortable, nauseous HEENT: moist mucous membranes, EOMI, no sinus pressure/tenderness Respiratory: Clear to auscultation bilaterally, Normal air movement Cardiovascular: No edema, Regular rate/rhythm, Normal S1 S2 Gastrointestinal: mild RUQ tenderness, no masses palpable, no rebound Musculoskeletal: No clubbing, No swelling, No tenderness Integumentary: No rashes, No erythema Neurological: Normal speech, Normal affect Problem List Fatigue likely secondary to anorexia/dehydration Hyponatremia, likely acute, secondary to hypovolemia in setting of anorexia Unintentional weight loss, ~15lb weight loss in ~6 weeks SELENA without CKD nausea, vomiting RUQ Pain HTN h/o h. pylori infection -unclear etiology of nausea/vomiting, difficult for patient to elaborate / discuss aggravating /relieving factors, not necessarily always related to RUQ pain -possible gastritis, gastric ulcer, or from gallbladder dysfunction -CT abd/pelvis and RUQ U/S were negative for acute process, noted some mild sludge -mild RUQ tenderness on exam -GI consulted given history and worsening of symptoms, HIDA scan ordered -hyponatremia improving, SELENA improved, continue IVF, nephrology consulted -hold anti-hypertensives -repeat labs -obtain orthostatic vitals -reports antibiotics and prednisone x2 in the last 4-6 weeks for sinus infection, currently without sinus pain/pressure, no change in hearing, no ear fullness -with resolution of symptoms, do not suspect inner ear / intracranial etiology of nausea, but may need to eval if persists and workup otherwise negative Dispo: anticipate dc home in 24-48hrs Time Spent Managing Pts Care (In Minutes): 45
[2020-11-25 10:53] LABS: Blood Morphology Comment NOT SEEN (NOT SEEN); Platelet Estimate ADEQ; White Blood Cell Scan OK (OK)
[2020-11-25] MEDS ORDERED: VITAMIN D 5,000 UNIT CAP PO SCH (12:00)
[2020-11-25] MEDS ORDERED: MULTIVITAMIN TAB PO SCH (12:00)
--- NOTE | 2020-11-25 13:03 | EKG ---
Test Date: 2020-11-24 Test Time: 09:41:56 Senior Datastage Developer: HARSHAD MEASUREMENT RESULTS: Intervals: Rate: 69 TN: 122 QRSD: 76 QT: 414 QTc: 443 Warren: P: 59 TN: 122 QRS: 66 T: 74 INTERPRETIVE STATEMENTS: Sinus rhythm with premature atrial complexes Otherwise normal ECG Compared to ECG 01/08/2007 16:52:37 Atrial premature complex(es) now present Left ventricular hypertrophy no longer present Electronically Signed On 11-25-20 12:59:46 CDT by Regino Romo
--- NOTE | 2020-11-25 13:12 | RAD REPORT ---
EXAM DESCRIPTION: NM - Hepatobiliary System Imagin - 11/25/2020 1:04 pm CLINICAL HISTORY: Right upper quadrant pain TECHNIQUE: The patient was administered 6.2 millicuries technetium Choletec and images of the abdome n obtained for 26 minutes. Patient was given 3 ounces ice cream and images of the gallbladder obtaine d for 30 minutes FINDINGS: Liver demonstrates prompt radiotracer uptake. Activity is seen within the gallbladder by 17 minutes. Prompt uptake is seen within small bowel. After the administration of ice cream gallbladder ejection fraction equals 67% Patient was asymptomatic IMPRESSION: No evidence of acute cholecystitis Normal gallbladder ejection fraction
[2020-11-25 13:25] VITALS: BP 126/71; TEMP 97.9
[2020-11-25] MEDS: FAMOTIDINE 20 MG/2 ML VIAL IV SCH (13:50)
[2020-11-25] MEDS: ALPRAZOLAM 1 MG TABLET PO PRN (13:59)
[2020-11-25 14:21] VITALS: O2SAT 98
--- NOTE | 2020-11-25 20:30 | P.DS ---
Admission Date: 11/24/20 Discharge Date: 11/25/20 Primary Care Provider: LARISSA Mcgregor at [facility] Disposition: ROUTINE DISCHARGE Discharge Condition: GOOD Reason for Admission: feeling weak, hyponatremia Consultations: Nephrology - Dr. Patel GI - Dr. Montgomery Procedures: CT Abd/pelvis (11/24): FINDINGS: No suspicious findings in the lung bases. Surgical changes from splenectomy. Hyperdense nodules medial to the left kidney sinus adjacent to the left hemidiaphragm likely representing stenosis. The pancreas is unremarkable. 8 millimeter structure along the upper pole the right kidney, not clearly arising from the kidney and possibly also represent splenosis. A similar finding was present on the 02/05/2020 CT No dilated bowel loops or bowel wall thickening. No free air, free fluid or inflammatory stranding. No hernia, mass or bulky lymphadenopathy. The urinary bladder is without significant finding. Advanced left hip degenerative changes. Scattered degenerative changes are present in the lumbar spine. IMPRESSION: No acute findings within the abdomen or pelvis. Re- demonstrated changes of splenectomy and splenosis Small hyperdense nodule along the superior pole of the right kidney may be a manifestation of splenosis is well and is similar to 02/05/2020. Recommend 12 month follow-up CT. RUQ U/S (11/24): FINDINGS: Negative for cholelithiasis. Gallbladder sludge is noted. No biliary ductal dilatation. Negative sonographic Arita's sign. No stones are seen. Negative for cholelithiasis or acute cholecystitis. CXR (11/24): FINDINGS: Emphysema again noted with some residual scarring in the left upper lobe and at the left lung base. Similar chronic blunting of the left costophrenic angle. The right lung is clear. The heart size is within normal limits. No fractures are identified. IMPRESSION: Chronic changes without superimposed acute process identified. The patient may be a candidate for annual low-dose lung cancer screening CT. HIDA (11/25): FINDINGS: Liver demonstrates prompt radiotracer uptake. Activity is seen within the gallbladder by 17 minutes. Prompt uptake is seen within small bowel. After the administration of ice cream gallbladder ejection fraction equals 67% Patient was asymptomatic IMPRESSION: No evidence of acute cholecystitis Normal gallbladder ejection fraction Problem List Fatigue secondary to anorexia/dehydration Hyponatremia, acute, secondary to hypovolemia in setting of anorexia Unintentional weight loss, ~15lb weight loss in ~6 weeks SELENA without CKD nausea, vomiting RUQ Pain HTN history of h. pylori infection s/p treatment and resolution Brief History of Present Illness: 65 y/o F w/ history of breast cancer s/p masectomy, diverticulosis, HTN, who presents w/ intermittent RUQ pain and feeling weak. She states the pain feels similar to when she was diagnosed with diverticulosis but the pain has never been this severe 02/28. She has been feeling weak and has not been able to keep water down without vomiting for several days. She has been feeling unwell for the past month due to a sinus infection which she was prescribed steroids and antibiotics. She did not finish her course of antibiotics due to episodes of hypotension last week but states her sinus symptoms have completely resolved. She c/o chills, nausea, muscle cramps. She reports unintentional weight loss, 15 lbs in the past 6 weeks. Denies any fevers, urinary symptoms. In the ER, she was found to be hyponatremic 125. Given zofran, morphine, pepcid, 1L bolus. She reports feeling better. Imaging negative for acute process. Hospital Course: Patient had initial improvement in symptoms, but worsened into the evening and the following morning after admission. She reported feeling as though she was "dying" with nausea, RUQ pain, and dry-heaving. Labs remained unremarkable. GI was consulted, recommended HIDA scan, which was negative. Patient had resolution of her symptoms, she tolerated liquid diet for lunch and felt like her illness left "was done and gone". She no longer had any RUQ pain, no nausea, and did not require any medication for >8hrs. She felt back to her normal self, which has been nearly 6 weeks, and requested discharge home. She was discharged with prescription for some zofran PRN. Hyponatremia resolved with IV fluid hydration. Unclear etiology of her nausea/dry-heaving. Possible gastroenteritis vs medication side effect from recent steroid/antibiotic usage. She is to f/u with her PCP in 3-5 days. Follow up with GI in a few weeks. Vital Signs/Physical Exam: Temp Pulse Resp BP Pulse Ox 97.9 F 60 16 126/71 98 11/25/20 12:00 11/25/20 12:00 11/25/20 12:00 11/25/20 12:00 11/25/20 12:00 General: Alert, In no apparent distress, Oriented x3 HEENT: PERRLA, Sclerae nonicteric Respiratory: Clear to auscultation bilaterally, Normal air movement Cardiovascular: No edema, Regular rate/rhythm, Normal S1 S2 Gastrointestinal: Soft and benign, Non-distended, No tenderness Musculoskeletal: No erythema, No tenderness Integumentary: No rashes, No significant lesion Neurological: Normal speech, Normal strength at 5/5 x4 extr, Normal affect Laboratory Data at Discharge: WBC 7.50 K/uL (4.3-10.9) 11/25/20 05:49 Hgb 11.9 g/dL (12.0-15.0) L D 11/25/20 05:49 Hct 35.9 % (36.0-45.0) L D 11/25/20 05:49 Plt Count 230 K/uL (152-406) 11/25/20 05:49 PT 12.0 SECONDS (9.5-12.5) 11/24/20 09:00 INR 1.04 11/24/20 09:00 Sodium 132 mmol/L (136-145) L 11/25/20 05:49 Potassium 4.4 mmol/L (3.5-5.1) 11/25/20 05:49 BUN 17 mg/dL (7-18) 11/25/20 05:49 Creatinine 0.86 mg/dL (0.55-1.3) 11/25/20 05:49 Glucose 76 mg/dL (74-106) 11/25/20 05:49 Phosphorus 2.5 mg/dL (2.5-4.9) 11/25/20 05:49 Magnesium 2.1 mg/dL (1.8-2.4) 11/24/20 09:00 Total Bilirubin 0.9 mg/dL (0.2-1.0) 11/25/20 05:49 AST 29 U/L (15-37) 11/25/20 05:49 ALT 36 U/L (12-78) 11/25/20 05:49 Alkaline Phosphatase 65 U/L (45-117) 11/25/20 05:49 Lipase 108 U/L (73-393) 11/24/20 09:00 Home Medications: Alprazolam [Xanax] 1 mg PO TID 11/24/20 Omeprazole [Prilosec] 40 mg PO DAILY #30 capsule. 11/25/20 Ondansetron [Zofran] 4 mg PO Q6H PRN 3 Days #10 tab 11/25/20 New Medications: Omeprazole [Prilosec] 40 mg PO DAILY #30 capsule. Ondansetron [Zofran] 4 mg PO Q6H PRN 3 Days #10 tab PRN Reason: Nausea / Vomiting Physician Discharge Instructions: You were found to be dehydrated with low sodium (hyponatremia). This resolved with IV fluids / rehydration. You underwent blood work ultrasound of your liver/gallbladder, CT abdomen/pelvis, and HIDA scan which were all negative for acute process / acute infection. You were treated with IV fluids, acid suppressant medication, and nausea medication and resolution of your symptoms. You are discharged with some zofran to take as needed for nausea. Slowly advance your diet from liquids/broths to more regular / low fat diet over the next few days. Your blood pressure was low / low-normal, improved with IV fluids. Recommend holding your lisinopril until you get consistent blood pressures at home > 140/90. Follow up with your PCP in 3-5 days. Recommend follow up with GI doctor, if symptoms return. Diet: Regular (low fat) Activity: Ad mayra Followup: Ike Mcgregor PA [Primary Care Provider] - (call to schedule appointment) Time spent managing pt's care (in minutes): 40
== END 2020-11-25 15:39 | disposition home or self-care (01) ==
LOC: ER 08:38 → ERHOLD 12:01 → 2ND 13:04
PROVIDERS: ADMIT Hospitalist; ATTEND Hospitalist
DX: E86.0 Dehydration (principal); E87.1 Hypo-osmolality and hyponatremia; N17.9 Acute kidney failure, unspecified; R63.4 Abnormal weight loss; R63.0 Anorexia; R11.2 Nausea with vomiting, unspecified; Z20.822 Contact with and (suspected) exposure to COVID-19; R10.11 Right upper quadrant pain; I10 Essential (primary) hypertension; Z85.3 Personal history of malignant neoplasm of breast; E87.5 Hyperkalemia; E83.51 Hypocalcemia; D63.8 Anemia in other chronic diseases classified elsewhere; Z87.891 Personal history of nicotine dependence
CPT/HCPCS: 96361; 93005; 87088; 85025 ×2; 87086; 80048 ×3; 36415; 83735; 84100; 85610; 80076 ×2; 85652; 84443; 81003; 84484; 84439; 83690; 84145; 83880; 83930; 86140; 74177; 71045; 76705; 78226; 96375; 96374; 99285; U0003; Q9967; J2550; C9113 ×2; J1650; J2270; J7030 ×3; J2405 ×4; A9537; G0378 ×3

== ENCOUNTER 2021-06-09 08:00 | Emergency (ER) | payer OTHER ==
--- OUTSIDE RECORDS SUMMARY | 2021-06-09 08:05 | XMS REPORT | Continuity of Care Document ---
:1955 Author Organization [facility] t Address [address] [place] [address] Care Team Providers Name Role Phone ALICE Primary Care Physician Unavailable Nilda Attending Clinician Unavailable ANDRÉS Attending Clinician Unavailable Doctor Unassigned, Name Attending Clinician Unavailable Michael HUYNH Attending Clinician Tiff Hobson MD Attending Clinician Osei HUYNH Attending Clinician OSEI Attending Clinician Unavailable Pob1, [facility] Attending Clinician Unavailable Anneliese Hussein MD Attending Clinician Nilda Admitting Clinician Unavailable Osei HUYNH Admitting Clinician OSEI Admitting Clinician Unavailable Payers Payer Name Policy Type Policy Number Effective Date Expiration Date S ource Problems Condition Condition Condition Status Onset Resolution Last Treating Co mments Source Name Details Category Date Date Treatment Clinician Date Chest pain Chest pain Disease Active U nivers - ity of 00:00: [address] Branch Hypertensi Hy[facility]ensi [facility], Adverse Reactions, Alerts Allergy Allergy Status Severity Reaction(s) Onset Inactive Treating Comm ents Source Name Type Date Date Clinician NO KNOWN Drug Active Univers ALLERGIE Class ity of S [facility] Social History Social Habit Start Date Stop Date Quantity Comments Source Sex Assigned At Universit y of [facility] Exposure to Not sure University of SARS-CoV-2 [facility] (event) Branch Alcohol intake 2019-10-16 2019-10-16 University of 00:00:00 00:00:00 [facility] Tobacco Comment 2019-10-15 2019-10-15 vaping, cigarettes U niversity of 00:00:00 00:00:00 20 years [facility] Smoking Status Start Date Stop Date Source Current every day smoker 2019-10-16 00:00:00 Uni versity of [facility] Medications Ordered Filled Start Stop Current Ordering Indication Dosage Frequency Signature Comments Components Source Medication Medication Date Date Medication? Clinician (SIG) Name Name acetaminoph 2020-0 Yes 650mg 650 mg, Un [place] en 10-15 Oral, ity of (TYLENOL) 21:14: Q4HPRN, [place] tablet 650 18 Starting Medic al mg Mon [place] 10/16/19 at 1614, Until Discontinu ed, Routine, Pain (scale 1-3) lisinopril 2020-0 Yes 20mg 20 mg, Unive rs (PRINIVIL,Z 10-15 Oral, ity of ESTRIL) 14:00: DAILY, [place] tablet 20 00 First dose Medi wilbert mg on Mon [place] 10/16/19 at 0900, Until Discontinu ed enoxaparin 2019-0 Yes 40mg 40 mg, Unive rs (LOVENOX) 10-15 Subcutaneo ity of injection 14:00: [place] 40 mg 00 First dose Medical on Mon [place] 10/16/19 at 0900, Until Discontinu ed, Routine docusate 2019-0 Yes 100mg 100 mg, Unive rs (COLACE) 10-15 Oral, BID, ity o f capsule 100 13:00: First dose [place] mg 00 on Mon [facility] 10/16/19 at Branch 0800, Until Discontinu ed, Routine lactobacill 2019-0 Yes 1{tbl} 1 tablet, Univers us 10-15 Oral, BID, ity of acidophilus 04:45: First dose [place] (ACIDOPHILL 00 on Mon Medica l US) 25 10/15/19 at [place] million 2345, cell -100 Until mg captab 1 Discontinu tablet ed, Routine azithromyci 2019-0 2020- No 500mg 500 mg, U nivers n 10-15 06-02 Oral, ity of (ZITHROMAX) 04:45: 13:59 DAILY, 7 [place] tablet 500 00 :00 doses, Medical mg First dose Branch on Mon10/15/19 at 2345, Last dose on Mon10/21/19 at 0900, KATT
Re ason for Anti-Infec tive: Documented Infection< br>Documen pippa Infection Site: Respirator y
Durat ion of Therapy: 7 days ALPRAZolam 2020-0 Yes .5mg 0.5 mg, Univ ers (XANAX) 10-15 Oral, ity of tablet 0.5 04:39: TIDPRN[place] mg 28 Starting Medical [facility] Branch 10/15/19 at 2339, Until Discontinu ed, Routine, anxiety ondansetron 2019-0 Yes 4mg 4 mg, Slow Univers (ZOFRAN 27 IV Push, ity of (PF)) 01:19: Q6HPRN, [place] injection 4 36 Starting Medi wilbert mg [facility] Branch 10/15/19 at 2019, Until Discontinu ed, Routine, Nausea and Vomiting (N/V) iohexol 2019-0 2020- No 77mL 77 mL, Univers (OMNIPAQUE 10-14 05-26 Intravenou it y of 350 BULK-75 23:30: 23:12 s, ONCE, 1 [place] mL) 00 :00 dose, [facility] Medical injection 10/15/19 at Bran ch 77 mL 1830, Routine ALPRAZolam 2020-0 Yes TAKE ONE Uni vers 1 mg tablet 5-04 (1) ity of 00:00: TABLET(S) [place] 00 BY MOUTH Medical THREE Branch TIMES A DAY. ALPRAZolam 2020-0 Yes 2mg Take 2 mg Un [place] 1 mg tablet 5-04 by mouth 3 it y of 00:00: (three) [place] 00 times Medical daily. Branch ALPRAZolam 2020-0 Yes 2mg Take 2 mg [place] 1 mg tablet 5-04 by mouth 3 it y of 00:00: (three) [place] 00 times Medical daily. Branch lisinopril 2020-0 Yes TAKE ONE Uni vers 40 mg 4-15 (1) ity of tablet 00:00: TABLET(S) [place] 00 BY MOUTH Medical ONCE A Branch DAY. lisinopril 2020-0 Yes TAKE ONE Uni vers 40 mg 4-15 (1) ity of tablet 00:00: TABLET(S) [place] 00 BY MOUTH Medical ONCE A Branch DAY. lisinopril 2020-0 Yes TAKE ONE Uni vers 40 mg 4-15 (1) ity of tablet 00:00: TABLET(S) BY MOUTH Medical ONCE A Branch DAY. alendronate 2020-0 Yes 40mg Take 40 mg Univers 70 mg 3-03 by mouth ity of tablet 00:00: with evening Medical meal. Branch alendronate 2020-0 Yes TAKE ONE Un [place] 70 mg 3-03 (1) ity of tablet 00:00: TABLET(S) BY MOUTH Medical ONCE A Branch WEEK. alendronate 2020-0 Yes 40mg Take 40 mg Univers 70 mg 3-03 by mouth ity of tablet 00:00: with [place] evening Medical meal. Branch Vital Signs Vital Name Observation Time Observation Value Comments Source Systolic blood 2019-10-16 21:00:00 143 mm[Hg] Univer sity of pressure [facility] Diastolic blood 2019-10-16 21:00:00 89 mm[Hg] Unive rsity of [facility] Heart rate 2019-10-16 21:00:00 88 /min [facility] Body temperature 2019-10-16 21:00:00 37.17 Vee [facility] Respiratory rate 2019-10-16 21:00:00 22 /min [facility] Oxygen saturation in 2019-10-16 21:00:00 93 /min [facility] Arterial blood by [facility] Pulse oximetry [place] Body height 2019-10-16 02:35:00 170.2 cm [facility] Body weight 2019-10-16 02:35:00 53.524 kg [facility] BMI 2019-10-16 02:35:00 18.48 kg/m2 [facility] Systolic blood 2019-10-16 21:00:00 143 mm[Hg] Univer sity of pressure [facility] Diastolic blood 2019-10-16 21:00:00 89 mm[Hg] Unive rsity of [facility] Heart rate 2019-10-16 21:00:00 88 /min [facility] Body temperature 2019-10-16 21:00:00 37.17 Vee [facility] rate 2019-10-16 21:00:00 22 /min [facility] Oxygen saturation in 2019-10-16 21:00:00 93 /min University of Arterial blood by [place] Medi wilbert Pulse oximetry Branch Body height 2019-10-16 02:35:00 170.2 cm Universi ty of [place] [facility] Body weight 2019-10-16 02:35:00 53.524 kg Universi ty of [place] [facility] BMI 2019-10-16 02:35:00 18.48 kg/m2 Universi ty of [facility] Branch Respiratory rate 2019-10-15 21:29:00 35 /min Univ ersity of [place] [facility] Systolic blood 2019-10-15 21:13:00 116 mm[Hg] Univer sity of pressure [place] [facility] Diastolic blood 2019-10-15 21:13:00 82 mm[Hg] Unive rsity of pressure [facility] Branch Heart rate 2019-10-15 21:13:00 95 /min Universi ty of [facility] Body temperature 2019-10-15 21:13:00 37.22 Vee Univ ersity of [facility] Branch Body height 2019-10-15 21:13:00 170.2 cm Universi ty of [place] [facility] Body weight 2019-10-15 21:13:00 51.71 kg Universi ty of [place] [facility] BMI 2019-10-15 21:13:00 17.85 kg/m2 Universi ty of [facility] Branch Oxygen saturation in 2019-10-15 21:13:00 96 /min University of Arterial blood by [facility] wilbert Pulse oximetry Branch Respiratory rate 2019-10-15 21:29:00 35 /min Univ ersity of [facility] Branch Systolic blood 2019-10-15 21:13:00 116 mm[Hg] Univer sity of pressure [place] [facility] Diastolic blood 2019-10-15 21:13:00 82 mm[Hg] Unive rsity of pressure [place] [facility] Heart rate 2019-10-15 21:13:00 95 /min Universi ty of [place] [facility] Body temperature 2019-10-15 21:13:00 37.22 Vee Univ ersity of [place] [facility] Body height 2019-10-15 21:13:00 170.2 cm Universi ty of [place] [facility] Body weight 2019-10-15 21:13:00 51.71 kg Universi ty of [place] [facility] BMI 2019-10-15 21:13:00 17.85 kg/m2 [facility] Oxygen saturation in 2019-10-15 21:13:00 96 /min University of Arterial blood by [facility] Pulse oximetry Branch Procedures Procedure Date / Time Performing Clinician Source Performed AUTHORIZATION FOR 2019-11-04 05:01:00 Doctor Unassigned, No Univ [facility] RELEASE OF PHI Name Medical Branch ECHO ROUTINE W/DOPPLER 2019-10-16 19:42:38 Chantelle Franz [facility] COLOR [facility] TROPONIN I 2019-10-16 13:17:[address] [facility] CORTISOL AM 2019-10-16 11:13:00 [facility] BASIC METABOLIC PANEL 2019-10-16 11:13:00 Chantelle Franz [facility] (NA, K, CL, CO2, Medical Branch GLUCOSE, BUN, CREATININE, CA) CBC WITH DIFFERENTIAL 2019-10-16 11:13:00 Osei ilene [facility] TROPONIN I 2019-10-16 07:05:[address] [facility] PNEUMOCOCCAL ANTIGEN 2019-10-16 03:36:00 Chantelle Franz [facility] URINALYSIS 2019-10-16 03:35:[address] [facility] LEGIONELLA URINARY 2019-10-16 03:35:00 Chantelle Franz [facility] ANTIGEN TST [facility] RESPIRATORY PANEL BY PCR 2019-10-16 03:08:00 Chantelle Franz [facility] COVID-19 (PCR MOLECULAR 2019-10-16 03:08:00 Chantelle Franz [facility] TESTING) [facility] LACTATE DEHYDROGENASE 2019-10-16 03:05:00 Osei ilene [facility] C-REACTIVE PROTEIN 2019-10-16 03:05:00 Chantelle Franz [facility] TROPONIN I 2019-10-16 03:05:[address] [facility] PROCALCITONIN 2019-10-16 03:04:[address] [facility] AC VBG + LACTIC ACID 2019-10-16 02:59:00 Chantelle Franz [facility] CT CHEST PULMONARY 2019-10-15 23:20:33 Anjel Rodriguez [facility] ANGIOGRAM Medical Branch N-TERMINAL PRO-BNP 2019-10-15 22:34:00 Anjel Rodriguez [facility] CREATINE KINASE 2019-10-15 22:34:00 [facility] FERRITIN SERUM 2019-10-15 22:34:00 [facility] TROPONIN I 2019-10-15 22:34:[address] [facility] HEPATIC FUNCTION PANEL 2019-10-15 22:34:00 Anjel Rodriguez [facility] ([id number]) (ALB,T.PRO,BILI Medical Branch T,BU/BC,ALT,AST,ALK PHOS) BASIC METABOLIC PANEL 2019-10-15 22:34:00 Michael Anjel [facility] (NA, K, CL, CO2, Medical Branch GLUCOSE, BUN, CREATININE, CA) LIPID PANEL 2019-10-15 22:34:00 Osei ilene [facility] ([id number])(TOTAL Medical Branch CHOLESTEROL, TRIGLYCERIDES, HDL) PROTHROMBIN TIME / INR 2019-10-15 22:34:00 Anjel Rodriguez [facility] D-DIMER 2019-10-15 22:34:00 [facility] ACTIVATED PARTIAL 2019-10-15 22:34:00 Michael [facility] THRMPLAS NI [facility] COVID-19 (PCR MOLECULAR 2019-10-15 22:33:00 Anjel Rodriguez [facility] TESTING) Medical Branch SEDIMENTATION RATE 2019-10-15 22:33:00 Osei ilene [facility] CBC WITH DIFFERENTIAL 2019-10-15 22:33:00 Anjel Rodriguez [facility] GLYCOSYLATED HEMOGLOBIN 2019-10-15 22:33:00 Osei [facility] (A1C) Medical Branch EKG-12 LEAD 2019-10-15 22:09:[address] [facility] Encounters Start End Encounter Admission Attending Care Care Encounter Source Date/Time Date/Time Type Type Clinicians Facility Department ID 2020-06-24 2020-06-24 [facility] [id number] [facility] 11:48:00 11:48:00 [id number] Family Practic e 2020-05-06 2020-05-06 Outpatient ANDRÉS, MHBL MHBL [id number] [facility]BL 12:26:00 16:39:00 TAMMY 2020-04-29 2020-04-29 Outpatient R [facility] [id number] [facility] 14:00:00 14:00:00 [id number] ity of [facility] 2019-11-04 2019-11-04 Orders Doctor CINDI [id number] 00:00:00 00:00:00 Only Unassigned, DARREL [id number] [place] [facility] 4.2.7.2.686 [id number] 2019-11-04 2019-11-04 Orders Doctor PUENTE [id number] Univers 00:00:00 00:00:00 Only Unassigned, DARREL [id number] [place] [facility] 4.2.7.2.686 [facility] [id number] [facility] 009 Branch 2019-10-15 2019-10-16 Emergency Anjel Rodriguez [facility] 1.2.840. 114 [id number] 17:09:10 18:24:00 Montserrat Hobson [id number] Chantelle Franz 4.2.7.2.686 [place] [id number] 2019-10-15 2019-10-16 Outpatient X OSEI [facility] [id number] [facility] 17:09:10 18:24:00 ADNAN ity of [facility] 2019-10-15 2019-10-16 Emergency Anjel Rodriguez [facility] 1.2.840. [id number] [facility] 17:09:10 18:24:00 Montserrat Hobson [id number] ity of Chantelle Franz 4.2.7.2.686 [facility] [id number] [facility] 080 [place] 2019-10-15 2019-10-15 Urgent Pob1, Acute [facility] [id number] 16:00:05 16:20:05 [facility] [id number] [place] 4.2.7.2.686 Professio [id number] nal [address] 2019-10-15 2019-10-15 Urgent Pob1, Acute Care Clinic [facility] 1. 2.840.114 [id number] [facility] 16:00:05 16:20:05 [facility] 350.1.1 3.10 ity of [place] 4.2.7.2.686 Severiano as Professio [id number] Me dical nal 0[address] Branch [address] 2019-10-15 2019-10-15 Outpatient R [facility] [id number] Univers 15:40:00 15:40:00 [facility] Results Test Description Test Time Test Comments Results Result Comments Source RESPIRATORY PANEL BY PCR 2019-10-16 18:21:00 Test Item Value Reference Range Interpretation Comme nts Adenovirus (test code = 49207-0) Negative Negative Coronavirus HKU1 (test code = 17852-3) Negative Negative Coronavirus NL63 (test code = 05743-8) Negative Negative Coronavirus 229E (test code = 19074-7) Negative Negative Coronavirus OC43 (test code = 30495-2) Negative Negative Human Metapneumovirus (test code = Negative Negative 40003-2) Human Rhinovirus/Enterovirus (test Negative Negative code = 10716-7) Influenza A (test code = 07996-8) Negative Negative Influenza B (test code = 24756-2) Negative Negative Parainfluenza Virus 1 (test code = Negative Negative 05214-6) Parainfluenza Virus 2 (test code = Negative Negative 12170-0) Parainfluenza Virus 3 (test code = Negative Negative 45495-9) Parainfluenza Virus 4 (test code = Negative Negative 61732-9) Respiratory Syncytial Virus (test code Negative Negative = 35314-3) Bordetella parapertussis (test code = Negative Negative 84293-0) Bordetella pertussis (test code = Negative Negative 08693-1) Chlamydia pneumoniae (test code = Negative Negative 39617-2) Mycoplasma pneumoniae (test code = Negative Negative 18825-6) CHERYL (test code = CHERYL) Negative:A negative result does not rule-out infection. ?This assay does not test for all potential infectious agents. ? Positive:A positive test result does not necessarily indicate the presence of viable organism. ? Lab Interpretation (test code = Normal 42646-5) [facility] [id number] 16:46:00 Test Item Value Reference Range Interpretation Comments MENDOZA AM (test code = 12.9 ug/dL 4.5-23 1141574454) CHERYL (test code = CHERYL) Biotin has been reported to cause a positive bias, interpret results relative to patient's use of biotin. Lab Interpretation (test Normal code = 64481-7) [facility] [id number] 16:08:00 Test Item Value Reference Range Interpretation Comments TROPONIN I (test <0.012 See_Comment [Automated code = 7893226748) message] The system which generated this result transmitted reference range : <=0.034 ng/mL. The reference range was not used to interpr et this result as normal/abnormal . CHERYL (test code = Equal or Less than CHERYL) 0.034 ng/ml---Normal ?Note: Cardiac troponin begins to rise 3-4 hours after the onset of ischemia. Repeat in 4-6 hours if the sample was drawn within 3-4 hours of the onset of the symptom and found normal. Between 0.035 and 0.120 ng/mL--- Borderline. Questionable myocardial injury or necrosis ? ?Note: Serial measurement may be necessary to confirm or exclude the diagnosis of myocardial injury or necrosis; Clinical correlation (symptoms, EKGs, imaging studies, and others) required; Repeat in 4-6 hours if clinically indicated. ? Equal or Higher than 0.121 ng/mL---Abnormal. Myocardial Injury or Necrosis Likely ? Biotin has been reported to cause a negative bias, interpret results relative to patient's use of biotin. ? Lab Interpretation Normal (test code = 20010-4) [facility] [id number] 15:42:00 Test Item Value Reference Range Interpretation Comments CRP (test code = 6798839973) 22.8 mg/dL <0.8 H Lab Interpretation (test code = Abnormal 11288-1) [facility] UR[facility]ARY ANTIGEN [id number] 15:00:00 Test Item Value Reference Range Interpretation Comments Legionella Urinary Negative Negative Antigen (test code = 8348602042) CHERYL (test code = CHERYL) Negative for L. pneumophilia serogroup I antigen in urine suggesting no recent or current infection. Infection due to Legionella cannot be ruled out since other serogroups and species may cause disease. Furthermore, antigens may not be present in urine during early stage of infection, or the level of antigen present in urine may be below the detection limit of the test. Lab Interpretation (test Normal code = 51745-9) [facility] [id number] 15:00:00 Test Item Value Reference Range Interpretation Comments S. pneumoniae antigen (test code = Negative Negative 5769488287) Lab Interpretation (test code = Normal 12167-5) [facility]2020-05-27 14:06:00 Test Item Value Reference Range Interpretation Comments Procalcitonin (test 0.04 ng/mL <0.07 code = 6807386746) CHERYL (test code = CHERYL) INTERPRETATION OF PROCALCITONIN RESULTS IN ADULTS >= 18 YEARS OF AGE Initiation and discontinuation of antibiotics on patients with suspected or confirmed Lower Respiratory Tract Infection in Adults >= 18 years of age. + +-------- --------+ + -----+|Procalcitonin |Interpretation ?|Antibiotic ? ? |Considerations ? |ng/mL ? | ?|recommendation | ? + +-------- --------+ + -----+| <0.1 ? | Bacterial ? ? ?| Strongly ? ? ?| ? | ?| infection very | discouraged ? | Overruling: ? | ?| unlikely ? ? ? | ? | ? Clinically unstable ? ? ? + +-------- --------+ + ? High risk for adverse ? ? | <0.25 ?| Bacterial ? ? ?| Discouraged ? | ? outcome ? | ?| infection ? ? ?| ? | ? SEE IMPORTANT NOTE ?| ?| unlikely ? ? ? | ? | ? + +-------- --------+ + -----+| >=0.25 ? ? ? | Bacterial ? ? ?| Encouraged ? ?| ? | ?| infection ? ? ?| ? | ? | ?| likely ? | ? | Consider treatment failure ?+ +------- ---------+ -+ if levels does not decrease | >0.5 ? | Bacterial ? ? ?| Strongly ? ? ?| appropriately ? | ?| infection very | encouraged ? ?| ? | ?| likely ? | ? | ? + +-------- --------+ + -----+ Discontinuation of antibiotics in high-acuity patients with suspected or confirmed sepsis in Adults >= 18 years of age. + +-------- --------+ + -----+|Procalcitonin |Interpretation ?|Antibiotic ? ? |Considerations ? |ng/mL ? | ?|recommendation | ? + +-------- --------+ + -----+| <0.25 ?| Bacterial ? ? ?| Strongly ? ? ?| ? | ?| infection very | discouraged ? | Overruling: ? | ?| unlikely ? ? ? | ? | ? Clinically unstable ? ? ? + +-------- --------+ + ? High risk for adverse ? ? | <0.5 or drop | Bacterial ? ? ?| Discouraged ? | ? outcome ? | >80% from ? ?| infection ? ? ?| ? | ? SEE IMPORTANT NOTE ?| highest PCT ?| unlikely ? ? ? | ? | ? | level ?| ?| ? | ? + +-------- --------+ + -----+| >=0.5 ?| Bacterial ? ? ?| Encouraged ? ?| ? | ?| infection ? ? ?| ? | ? | ?| likely ? | ? | Consider treatment failure ?+ +------- ---------+ -+ if levels does not decrease | >1.0 ? | Bacterial ? ? ?| Strongly ? ? ?| appropriately ? | ?| infection very | encouraged ? ?| ? | ?| likely ? | ? | ? + +-------- --------+ + -----+ Percentage of drop of Procalcitonin calculation for Discontinuation of antibiotics in high-acuity patients with suspected or confirmed sepsis in Adults >= 18 years of age. ? Procalcitonin highest{}-Procalcitonin current{}Delta Procalcitonin = x100% ? Procalcitonin current {} IMPORTANT NOTE: Procalcitonin may be elevated without bacterial infection by physiologic stress related to trauma, panda, chronic dialysis, metastatic cancer, surgery in the past seven days, malaria, some fungal infections, and some forms of vasculitis. The interpretation algorithm may not apply to patients with immunosuppression (equivalent of >10 mg of prednisone daily), HIV with CD4 cell count < 350 cells/mm3, active malignancy on systemic chemotherapy, solid organ transplant or hematopoietic stem cell transplantation, or hospital acquired pneumonia. Additionally, some clinical trials of procalcitonin have excluded patients with shock requiring vasopressor use, acute respiratory failure requiring mechanical ventilation, or those with known lung abscess/empyema. For further information please refer to:[email or web address] Lab Interpretation Normal (test code = 60525-1) [facility] METABOLIC PANEL (NA, K, CL, CO2, GLUCOSE, BUN, CREATININE, CA)2019-10-16 13:18:00 Test Item Value Reference Range Interpretation Comments NA (test code = 138 mmol/L 135-145 4248092794) K (test code = 3.8 mmol/L 3.5-5 3159136362) CL (test code = 103 mmol/L 98-108 1045134967) CO2 TOTAL (test code = 26 mmol/L 23-31 9250093840) AGAP (test code = 2-16 3325497512) BUN (test code = 11 mg/dL 7-23 0597709031) GLUCOSE (test code = 82 mg/dL 70-110 0403466360) CREATININE (test code 0.59 mg/dL 0.5-1.04 = 2777588952) CALCIUM (test code = 9.1 mg/dL 8.6-10.6 9564570726) eGFR Calculation mL/min/1.73m2 (Non-) (test code = 5126448078) eGFR Calculation mL/min/1.73m2 () (test code = 8882207320) CHERYL (test code = CHERYL) Association of Glomerular Filtration Rate (GFR) and Staging of Kidney Disease* + -+ + ---+| GFR (mL/min/1.73 m2) ?| With Kidney Damage ?| ?Without Kidney Damage+ -------+ ------+ ---------+| ?>90 ?| ?Stage one ?| ? Normal ?+ --+ -+ ----+| ?60-89 ?| ?Stage two ?| ? Decreased GFR ? + -+ + ---+| ?30-59 ?| ?Stage three ?| ? Stage three ? + -+ + ---+| ?15-29 ?| ?Stage four ? | ? Stage four ?+ --+ -+ ----+| ?<15 (or dialysis) ? ?| ?Stage five ? | ? Stage five ?+ --+ -+ ----+ *Each stage assumes the associated GFR level has been in effect for at least three months. ?Stages 1 to 5, with or without kidney disease, indicate chronic kidney disease. Notes: Determination of stages one and two (with eGFR >59mL/min/1.73 m2) requires estimation of kidney damage for at least three months as defined by structural or functional abnormalities of the kidney, manifested by either:Pathological abnormalities or Markers of kidney damage (including abnormalities in the composition of the blood or urine or abnormalities in imaging tests). [facility] WITH [id number] 13:11:00 Test Item Value Reference Range Interpretation Comments WBC (test code = See_Comment H [Automated 6690-2) message] The sy stem which generated this result transmitted reference range : 4.30 - 11.10 10*3/?L. The reference range was not used to interpret this result as normal/abnormal . RBC (test code = See_Comment [Automated 789-8) message] The sy stem which generated this result transmitted reference range : 3.93 - 5.25 10*6/?L. The reference range was not used to interpret this result as normal/abnormal . HGB (test code = 12.9 g/dL 11.6-15 718-7) HCT (test code = 37.2 % 35.7-45.2 4544-3) MCV (test code = 91.6 fL 80.6-95.5 787-2) MCH (test code = 31.8 pg 25.9-32.8 785-6) MCHC (test code = 34.7 g/dL 31.6-35.1 786-4) RDW-SD (test code = 47.8 fL 39-49.9 13149-1) RDW-CV (test code = 14.1 % 12-15.5 788-0) PLT (test code = See_Comment [Automated 777-3) message] The sy stem which generated this result transmitted reference range : 166 - 358 10*3/ ?L. The reference r marguerite was not used to interpret this result as normal/abnormal . MPV (test code = 12.2 fL 9.5-12.9 30473-4) NRBC/100 WBC (test See_Comment [Automat ed code = 5316774610) message] The system which generated this result transmitted reference range : 0.0 - 10.0 /100 WBCs. The refer ence range was not u sed to interpret th is result as normal/abnormal . NRBC x10^3 (test code <0.01 See_Comment [Auto mated = 6709097854) message] The s ystem which generated this result transmitted reference range : 10*3/?L. The reference range was not used to interpret this result as normal/abnormal . GRAN MAT (NEUT) % 69.0 % (test code = 770-8) IMM GRAN % (test code 0.40 % = 1427364079) LYMPH % (test code = 17.0 % 736-9) MONO % (test code = 9.7 % 5905-5) EOS % (test code = 2.8 % 713-8) BASO % (test code = 1.1 % 706-2) GRAN MAT x10^3(ANC) 7.68 10*3/uL 1.88-7.09 H (test code = 5824023869) IMM GRAN x10^3 (test 0.05 10*3/uL 0-0.06 code = 8204586340) LYMPH x10^3 (test code 1.89 10*3/uL 1.32-3.29 = 731-0) MONO x10^3 (test code 1.08 10*3/uL 0.33-0.92 H = 742-7) EOS x10^3 (test code = 0.31 10*3/uL 0.03-0.39 711-2) BASO x10^3 (test code 0.12 10*3/uL 0.01-0.07 H = 704-7) Lab Interpretation Abnormal (test code = 53782-0) [facility] [id number] 08:25:00 Test Item Value Reference Range Interpretation Comments TROPONIN I (test <0.012 See_Comment [Automated code = 8146756901) message] The system which generated this result transmitted reference range : <=0.034 ng/mL. The reference range was not used to interpr et this result as normal/abnormal . CHERYL (test code = Equal or Less than CHERYL) 0.034 ng/ml---Normal ?Note: Cardiac troponin begins to rise 3-4 hours after the onset of ischemia. Repeat in 4-6 hours if the sample was drawn within 3-4 hours of the onset of the symptom and found normal. Between 0.035 and 0.120 ng/mL--- Borderline. Questionable myocardial injury or necrosis ? ?Note: Serial measurement may be necessary to confirm or exclude the diagnosis of myocardial injury or necrosis; Clinical correlation (symptoms, EKGs, imaging studies, and others) required; Repeat in 4-6 hours if clinically indicated. ? Equal or Higher than 0.121 ng/mL---Abnormal. Myocardial Injury or Necrosis Likely ? Biotin has been reported to cause a negative bias, interpret results relative to patient's use of biotin. ? Lab Interpretation Normal (test code = 35477-8) [facility]anoTROP[facility] [id number] 05:12:00 Test Item Value Reference Range Interpretation Comments TROPONIN I (test <0.012 See_Comment [Automated code = 5809435584) message] The system which generated this result transmitted reference range : <=0.034 ng/mL. The reference range was not used to interpr et this result as normal/abnormal . CHERYL (test code = Equal or Less than CHERYL) 0.034 ng/ml---Normal ?Note: Cardiac troponin begins to rise 3-4 hours after the onset of ischemia. Repeat in 4-6 hours if the sample was drawn within 3-4 hours of the onset of the symptom and found normal. Between 0.035 and 0.120 ng/mL--- Borderline. Questionable myocardial injury or necrosis ? ?Note: Serial measurement may be necessary to confirm or exclude the diagnosis of myocardial injury or necrosis; Clinical correlation (symptoms, EKGs, imaging studies, and others) required; Repeat in 4-6 hours if clinically indicated. ? Equal or Higher than 0.121 ng/mL---Abnormal. Myocardial Injury or Necrosis Likely ? Biotin has been reported to cause a negative bias, interpret results relative to patient's use of biotin. ? Lab Interpretation Normal (test code = 08316-4) [facility]2020-05-27 05:06:00 Test Item Value Reference Range Interpretation Comments APPEARANCE (test code = Clear Clear 8395326813) COLOR (test code = Yellow Yellow 8433141584) PH (test code = 4.8-8.0 2736645175) SP GRAVITY (test code = 1.003-1.030 H 7425773723) GLU U QUAL (test code = Normal Normal 7732447314) BLOOD (test code = Negative Negative 7766057254) KETONES (test code = Negative Negative 8521328268) PROTEIN (test code = Negative Negative 2887-8) UROBILIN (test code = Normal Normal 5035396189) BILIRUBIN (test code = Negative Negative 1110186925) NITRITE (test code = Negative Negative 9905026851) LEUK DANIEL (test code = Negative Negative 9905358575) RBC/HPF (test code = <1 See_Comment [Autom ated message] 7054034761) The system [employer] generated this result transmitted ref erence range: 0 - 3 HP F. The reference range was not used to int erpret this result as normal/abnormal . WBC/HPF (test code = See_Comment [Autom ated message] 0616874306) The system [employer] generated this result transmitted ref erence range: 0 - 5 HP F. The reference range was not used to int erpret this result as normal/abnormal . BACTERIA (test code = Negative Negative 0275068894) SQ EPITH (test code = HPF 4207194823) Lab Interpretation (test Abnormal code = 08601-8) [facility]anoLACTATE [id number] 04:59:00 Test Item Value Reference Range Interpretation Comments LDH (test code = 5299205307) 1050 U/L 300-600 H Lab Interpretation (test code = Abnormal 49859-8) [facility]CORON[facility] COVID-19 [id number] 04:54:00 Test Item Value Reference Range Interpretation Comments SARS-CoV-2 Rapid ID NOW Not Detected Not Detected (test code = 10018-4) CHERYL (test code = CHERYL) ID NOW COVID-19 Assay is an isothermal nucleic acid amplification test intended for the qualitative detection of nucleic acid from SARS-CoV-2 viral RNA in nasopharyngeal (YOU[employer] CAREER SPECIALIST) specimens. It is used under Emergency Use Authorization (EUA) by FDA. The limit of detection (LOD) of the assay is 125 Genome Equivalents/mL. A positive result is indicative of the presence of SARS-CoV-2 RNA. ?Clinical correlation with patient history and other diagnostic information is necessary to determine patient infection status. A negative (Not Detected) result does not preclude SARS-CoV-2 infection. In patients with clinical symptoms and other tests that are consistent with SARS-CoV-2 infection, negative results should be treated as presumptive negative and a new specimen should be tested with alternative PCR molecular test. Invalid: Please collect a new specimen for repeat patient testing if clinically indicated. Lab Interpretation Normal (test code = 30141-0) [facility]anoAC VBG + LACTIC [id number] 03:05:00 Test Item Value Reference Range Interpretation Comments PH (test code = 7.32-7.42 1405172789) PCO2 ELAINA (test code See_Comment [Pieceablea pippa message] = 8580951630) The system KILTR generated this result transmitted ref erence range: 41 - 51 mmHg. The reference r marguerite was not used to int erpret this result as normal/abnormal . PO2 ELAINA (test code See_Comment [Automat ed message] = 5320744916) The system KILTR generated this result transmitted ref erence range: 25 - 40 mmHg. The reference r marguerite was not used to int erpret this result as normal/abnormal . HCO3 ELAINA (test code See_Comment [Pieceablea pippa message] = 3603776185) The system KILTR generated this result transmitted ref erence range: 24 - 28 mEq/L. The reference r marguerite was not used to int erpret this result as normal/abnormal . AC VBE(BEAKER) mEq/L (test code = 5975416581) LACTIC ACID (test 1.11 mmol/L 0.5-2.2 code = 5609655051) [facility]anoCT CHEST PULMONARY [id number] 02:10:58 No acute pulmonary embolism. Multifocal bilateral groundglass opacities are concerning for atypicalpneumonia, including COVID 19 pneumonia. Another consideration iscryptogenic organizing pneumonia. Mediastinal lymphadenopathy, likely reactive. Indeterminate 3.4cm left adrenal mass. Nonemergent evaluation with CTadrenal mass protocol is recommended. Preliminary Report Dictated by Resident: Bryon Stein MD., have reviewed this study and agree with the abovereport.PROCEDURE: CT ANGIO CHEST WITH CONTRAST - PE PROTOCOL CLINICAL INDICATION: 64 years Female Shortness of breath COMPARISON: ?None. TECHNIQUE: ?Helical CT was performed and reconstructed at 1.25 mm slicethickness from lung apices to bases using 100 mL Omnipaque intravenouscontrast, without complication. ? Axial MIPs were generated and reviewed tofurther define anatomy and possible pathology. ? (DFOV = 40 cm) FINDINGS: PULMONARY ARTERIES: Enhancement is appropriate for evaluation. No acute pulmonary embolism iside ntified. CHEST: Lower neck/thyroid: Low-density nodules identified in the right thyroidlobe measuring up to 1.5 cm; it contains punctate internal calcifications.No supra clavicular adenopathy identified. Lungs: Multifocal, mostly peripheral but peribronchovascular groundglass opacitiesare noted in the bilateral lower, left upper and right middle lobe. Themost extensive groundglass opacities and interlobular septal thickening arenoted in the right upper lobe. Central airway: Mild but irregular dilation of the distal trachea andmainstem bronchi noted. There is more overt mild to moderate bronchiectasisinvolving the lobar and segmental branches. Pleura: No pleural effusion, thickening or pneumothorax. Thoracic aorta and great vessels: ?Normal in diameter. Mild calcifiedatherosclerotic plaque in thearch. Heart and pericardium: No detectable coronary arterial calcification.Unremarkable cardiac morphology and pericardium. Pulmonary arteries: Well-opacified without filling defect. Normal caliber. Lymph nodes: Enlarged subaortic/AP window lymph node is seen, measuring 1.1cm. A 1 cm left lower paratracheal lymph node is seen. 1.2 cm subcarinallymph node is present. Mediastinum: The esophagus is mildly patulous but without mural thickening. Thoracic spine and chest wall: No acute fracture. Mild multi levelspondylotic changes of the thoracic spine with normal vertebral bodyheights. Moderate spondylotic changes of the thoracic spine T11-T12. Changes of right mastectomy are noted. A left breast implant is present. Other Lines/Tubes/Devices/Hardware: None Visualized upper abdomen: 3.4 cm left adrenal indeterminatehyperattenuating lesion is seen. [facility], Radiant Results Inft User - 10/15/2019 9:12 PM CDTPROCEDURE: CT ANGIO CHEST WITH CONTRAST - PE PROTOCOLCLINICAL INDICATION: 64 years Female Shortness of breath COMPARISON: None.TECHNIQUE: Helical CT was performed and reconstructed at 1.25 mm slicethickness from lung apices to bases using 100 mL Omnipaque intravenouscontrast, without complication. Axial MIPs were generated and reviewed tofurther define anatomy and possible pathology. (DFOV = 40 cm)FINDINGS:PULMONARY ARTERIES: Enhancement is appropriate for evaluation. No acute pulmonary embolism isidentified.CHEST:Lower neck/thyroid: Low-density nodules identified in the right thyroidlobe measuring up to 1.5 cm; it contains punctate internal calcifications.No supra clavicular adenopathy identified.Lungs: Multifocal, mostly peripheral but peribronchovascular groundglass opacitiesare noted in the bilateral lower, left upper and right middle lobe. Themost extensive groundglass opacities and interlobular septal thickening arenoted in the right upper lobe.Central airway: Mild but irregular dilation of the distal trachea andmainstem bronchi noted. There is more overt mild to moderate bronchiectasisinvolving the lobar and segmental branches.Pleura: No pleural effusion, thickening or pneumothorax.Thoracic aorta and great vessels: Normal in diameter. Mild calcifiedatherosclerotic plaque in the arch.Heart and pericardium: No detectable coronary arterial calcifi cation.Unremarkable cardiac morphology and pericardium.Pulmonary arteries: Well- opacified without filling defect. Normal caliber.Lymph nodes: Enlarged subaortic/AP window lymph node is seen, measuring 1.1cm. A 1 cm left lower paratracheal lymph node is seen. 1.2 cm subcarinallymph node is present.Media stinum: The esophagus is mildly patulous but without mural thickening.Thoracic spine and chest wall:No acute fracture. Mild multilevelspondylotic changes of the thoracic spine with normal vertebral bodyheights. Moderate spondylotic changes of the thoracic spine T11-T12.Changes of right mastectomy arenoted. A left breast implant is present. Other Lines/Tubes/Devices/Hardware: NoneVisualized upper abdomen: 3.4 cm left adrenal indeterminatehyperattenuating lesion is seen. IMPRESSIONNo acute pulmonary embolism.Multifocal bilateral groundglass opacities are concerning for atypicalpneumonia, including COVID 19 pneumonia. Another consideration iscryptogenic organizing pneumonia.Mediastinal lymphadenopathy, likely reactive.Indeterminate 3.4cm left adrenal mass. Nonemergentevaluation with CTadrenal mass protocol is recommended.Preliminary Report Dictated by Resident: Efraín Hadley, Bryon Palacios MD., have reviewed this study and agree with the abovereport.[facility]anoFERRITIN [id number] 02:10:00 Test Item Value Reference Range Interpretation Comments FERRITIN (test code = 94.2 ng/mL 11-264 2387150147) CHERYL (test code = CHERYL) Biotin has been reported to cause a negative bias, interpret results relative to patient's use of biotin. Lab Interpretation (test Normal code = 69880-7) [facility] PlanoD-[id number] 01:54:00 Test Item Value Reference Interpretation Comments Range D-DIMER (test code = See_Comment H [Autom ated 2368049562) message] The system which generated this result transmitted reference range : <0.41 ?g/mL (FEU). The reference range was not used to interpret this result as normal/abnormal . CHERYL (test code = This test may be CHERYL) used in conjunction with a clinical pretest probability (PTP) assessment model to exclude venous thromboembolism (VTE) in patients suspected of deep venous thrombosis (DVT) and pulmonary embolism (PE) A D-Dimer value less than 0.50 ?g/ml (FEU) has a negative predicative value of 96 to 100% (95% CI)and 97 to 100% (95% CI) as an aid in the diagnosis of deep vein thrombosis (DVT) and pulmonary embolism when there is low or moderate pretest probability of PE or DVT. D-Dimer values are expressed in initial fibrinogen equivalent units (FEU)" The assay results should be used with other information, including the clinical context, in forming a diagnosis. Lab Interpretation Abnormal (test code = 61485-6) [facility] PlanoSEDIMENTATION [id number] 01:51:00 Test Item Value Reference Range Interpretation Comments ESR (test code = See_Comment H [Automated message] 0211921126) The system [employer] generated this result transmitted ref erence range: 0 - 20 m m/HR. The reference r marguerite was not used to interpret this result as normal/abnor mal. Lab Interpretation (test Abnormal code = 30669-7) [facility] PlanoGLYCOSYLATED HEMOGLOBIN (A1C)2019-10-16 01:48:00 Test Item Value Reference Interpretation Comments Range HGB A1C (test code = See_Comment [Autom ated 4548-4) message] The system which generated this result transmitted reference range : 4.0 - 6.0 % NGSP. The reference range was not used to interpret this result as normal/abnormal . CHERYL (test code = %A1C (NGSP) CHERYL) Interpretation (ADA)4.8-5.6 ? ? Normal or (Non-Diabetic Range)5.7-6.4 ? ? Increased Risk (Pre-Diabetic)>6.5 ?Diabetes Indicated Lab Interpretation Normal (test code = 38883-4) [facility] PlanoCREATINE [id number] 01:36:00 Test Item Value Reference Range Interpretation Comments CK (test code = 0792269021) 39 U/L 33-194 Lab Interpretation (test code = Normal 81698-2) [facility] PlanoLIPID PANEL (10260)(TOTAL CHOLESTEROL, TRIGLYCERIDES, HDL)2019-10-16 01:34:00 Test Item Value Reference Range Interpretation Comments CHOL (test code = 119 mg/dL 120-200 L 3977922323) HDL (test code = 26 mg/dL >50 L 0909186677) HDLC RATIO (test code = See_Comment H [Au tomated message] 8404583768) The system [employer] generated this result transmit pippa reference range : <=4.5. The refe rence range was not u sed to interpret th is result as normal/abnormal . TRIG (test code = 87 mg/dL 30-170 4007073980) LDL CHOL (test code = 76 mg/dL See_Comment [Auto mated message] 07271-8) The system [employer] generated this result transmit pippa reference range : <=160. The refe rence range was not u sed to interpret th is result as normal/abnormal . VLDL (test code = 17 mg/dL 5-60 6334486994) Lab Interpretation (test Abnormal code = 67009-9) [facility] PlanoTroponin [id number] 23:07:00 Test Item Value Reference Range Interpretation Comments TROPONIN I (test <0.012 See_Comment [Automated code = 9289555354) message] The system which generated this result transmitted reference range : <=0.034 ng/mL. The reference range was not used to interpr et this result as normal/abnormal . CHERYL (test code = Equal or Less than CHERYL) 0.034 ng/ml---Normal ?Note: Cardiac troponin begins to rise 3-4 hours after the onset of ischemia. Repeat in 4-6 hours if the sample was drawn within 3-4 hours of the onset of the symptom and found normal. Between 0.035 and 0.120 ng/mL--- Borderline. Questionable myocardial injury or necrosis ? ?Note: Serial measurement may be necessary to confirm or exclude the diagnosis of myocardial injury or necrosis; Clinical correlation (symptoms, EKGs, imaging studies, and others) required; Repeat in 4-6 hours if clinically indicated. ? Equal or Higher than 0.121 ng/mL---Abnormal. Myocardial Injury or Necrosis Likely ? Biotin has been reported to cause a negative bias, interpret results relative to patient's use of biotin. ? Lab Interpretation Normal (test code = 66290-4) [facility] PlanoN-TERMINAL [id number] 23:04:00 Test Item Value Reference Range Interpretation Comments NT-proBNP (test code 556 pg/mL See_Comment H [Autom ated = 5800381389) message] The system which generated this result transmitted reference range : <=125. The reference range was not used to interpret this result as normal/abnormal . CHERYL (test code = CHERYL) Biotin has been reported to cause a negative bias, interpret results relative to patient's use of biotin. Lab Interpretation Abnormal (test code = 80673-8) [facility]anoCORONAVIRUS COVID-19 [id number] 23:00:00 Test Item Value Reference Range Interpretation Comments SARS-CoV-2 Rapid ID NOW Not Detected Not Detected (test code = 03999-5) CHERYL (test code = CHERYL) ID NOW COVID-19 Assay is an isothermal nucleic acid amplification test intended for the qualitative detection of nucleic acid from SARS-CoV-2 viral RNA in nasopharyngeal (YOU[employer] CAREER SPECIALIST) specimens. It is used under Emergency Use Authorization (EUA) by FDA. The limit of detection (LOD) of the assay is 125 Genome Equivalents/mL. A positive result is indicative of the presence of SARS-CoV-2 RNA. ?Clinical correlation with patient history and other diagnostic information is necessary to determine patient infection status. A negative (Not Detected) result does not preclude SARS-CoV-2 infection. In patients with clinical symptoms and other tests that are consistent with SARS-CoV-2 infection, negative results should be treated as presumptive negative and a new specimen should be tested with alternative PCR molecular test. Invalid: Please collect a new specimen for repeat patient testing if clinically indicated. Lab Interpretation Normal (test code = 26065-6) [facility] PlanoaPTT2020-05-26 22:59:00 Test Item Value Reference Range Interpretation Comments APTT Patient (test See_Comment [Automat ed code = 3173-2) message] The system which generated this result transmitted reference range : 23 - 38 Seconds . The reference range was not used to interpr et this result as normal/abnormal . CHERYL (test code = CHERYL) The [facility] patient population mean normal value for aPTT is 30 seconds. Lab Interpretation Normal (test code = 03371-2) [facility] PlanoProthrombin Time (PT) / [id number] 22:59:00 Test Item Value Reference Range Interpretation Comments PROTIME PATIENT (test See_Comment [Auto mated message] code = 5964-2) The system wh ich generated this result transmitted ref erence range: 12.0 - 1 4.7 Seconds. The re ference range was not u sed to interpret this result as normal/abnor mal. INR (test code = 6301-6) Nor mal INR <1.1; Warfarin Therap eutic range 2.0 to 3. 0 or 2.5 to 3.5, dep ending upon the indica tions. Lab Interpretation (test Normal code = 23060-6) [facility] PlanoBasi Metabolic Panel (NA, K, CL, CO2, GLUCOSE, BUN, CREATININE, CA)2019-10-15 22:55:00 Test Item Value Reference Range Interpretation Comments NA (test code = 138 mmol/L 135-145 8796860991) K (test code = 3.6 mmol/L 3.5-5 2367981827) CL (test code = 100 mmol/L 98-108 7894440116) CO2 TOTAL (test code = 27 mmol/L 23-31 2145869150) AGAP (test code = 2-16 1776600955) BUN (test code = 11 mg/dL 7-23 9165929074) GLUCOSE (test code = 103 mg/dL 70-110 4814593862) CREATININE (test code 0.73 mg/dL 0.5-1.04 = 5211859310) CALCIUM (test code = 9.1 mg/dL 8.6-10.6 2952613127) eGFR Calculation mL/min/1.73m2 (Non-) (test code = 1626532118) eGFR Calculation mL/min/1.73m2 () (test code = 8540015579) CHERYL (test code = CHERYL) Association of Glomerular Filtration Rate (GFR) and Staging of Kidney Disease* + -+ + ---+| GFR (mL/min/1.73 m2) ?| With Kidney Damage ?| ?Without Kidney Damage+ -------+ ------+ ---------+| ?>90 ?| ?Stage one ?| ? Normal ?+ --+ -+ ----+| ?60-89 ?| ?Stage two ?| ? Decreased GFR ? + -+ + ---+| ?30-59 ?| ?Stage three ?| ? Stage three ? + -+ + ---+| ?15-29 ?| ?Stage four ? | ? Stage four ?+ --+ -+ ----+| ?<15 (or dialysis) ? ?| ?Stage five ? | ? Stage five ?+ --+ -+ ----+ *Each stage assumes the associated GFR level has been in effect for at least three months. ?Stages 1 to 5, with or without kidney disease, indicate chronic kidney disease. Notes: Determination of stages one and two (with eGFR >59mL/min/1.73 m2) requires estimation of kidney damage for at least three months as defined by structural or functional abnormalities of the kidney, manifested by either:Pathological abnormalities or Markers of kidney damage (including abnormalities in the composition of the blood or urine or abnormalities in imaging tests). [facility] PlanoHepatic Function Panel (ALB, T.PRO, BILI T, BU/BC, ALT, AST, ALK PHOS)2019-10-15 22:55:00 Test Item Value Reference Range Interpretation Comments TOTAL BILI (test code = 4439830726) 0.8 mg/dL 0.1-1.1 BILI UNCON (test code = 4544302052) 0.8 mg/dL 0.1-1.1 BILI CONJ (test code = 2179395023) 0.0 mg/dL 0-0.3 T PROTEIN (test code = 8966394966) 7.4 g/dL 6.3-8.2 ALBUMIN (test code = 9851749747) 4.0 g/dL 3.5-5 ALK PHOS (test code = 3361511128) 107 U/L 34-122 ALTv (test code = 1742-6) 24 U/L 5-35 AST(SGOT) (test code = 2633869855) 46 U/L 13-40 H Lab Interpretation (test code = Abnormal 12397-7) [facility] WITH [id number] 22:53:00 Test Item Value Reference Range Interpretation Comments WBC (test code = See_Comment H [Automated 4035-2) message] The sy stem which generated this result transmitted reference range : 4.30 - 11.10 10*3/?L. The reference range was not used to interpret this result as normal/abnormal . RBC (test code = See_Comment [Automated 265-8) message] The sy stem which generated this result transmitted reference range : 3.93 - 5.25 10*6/?L. The reference range was not used to interpret this result as normal/abnormal . HGB (test code = 13.4 g/dL 11.6-15 718-7) HCT (test code = 38.9 % 35.7-45.2 4544-3) MCV (test code = 91.7 fL 80.6-95.5 787-2) MCH (test code = 31.6 pg 25.9-32.8 785-6) MCHC (test code = 34.4 g/dL 31.6-35.1 786-4) RDW-SD (test code = 48.1 fL 39-49.9 36172-3) RDW-CV (test code = 14.3 % 12-15.5 788-0) PLT (test code = See_Comment [Automated 777-3) message] The sy stem which generated this result transmitted reference range : 166 - 358 10*3/ ?L. The reference r marguerite was not used to interpret this result as normal/abnormal . MPV (test code = 11.9 fL 9.5-12.9 43817-5) NRBC/100 WBC (test See_Comment [Automat ed code = 8659383373) message] The system which generated this result transmitted reference range : 0.0 - 10.0 /100 WBCs. The refer ence range was not u sed to interpret th is result as normal/abnormal . NRBC x10^3 (test code <0.01 See_Comment [Auto mated = [id number]) message] The s ystem which generated this result transmitted reference range : 10*3/?L. The reference range was not used to interpret this result as normal/abnormal . GRAN MAT (NEUT) % 72.3 % (test code = 770-8) IMM GRAN % (test code 0.60 % = 2333552445) LYMPH % (test code = 16.0 % 736-9) MONO % (test code = 8.8 % 5905-5) EOS % (test code = 1.7 % 713-8) BASO % (test code = 0.6 % 706-2) GRAN MAT x10^3(ANC) 8.99 10*3/uL 1.88-7.09 H (test code = 1346864638) IMM GRAN x10^3 (test 0.07 10*3/uL 0-0.06 H code = 1279267837) LYMPH x10^3 (test code 1.99 10*3/uL 1.32-3.29 = 731-0) MONO x10^3 (test code 1.09 10*3/uL 0.33-0.92 H = 742-7) EOS x10^3 (test code = 0.21 10*3/uL 0.03-0.39 711-2) BASO x10^3 (test code 0.08 10*3/uL 0.01-0.07 H = 704-7) Lab Interpretation Abnormal (test code = 65520-7) [facility]
[2021-06-09] MEDS ORDERED: ONDANSETRON 4 MG/2 ML VIAL ONE (08:44)
[2021-06-09] MEDS ORDERED: MORPHINE 2 MG/ML SYR ONE (08:44)
[2021-06-09] MEDS ORDERED: NA CHLORIDE 0.9% 500 ML ONE (08:45)
[2021-06-09] MEDS ORDERED: FAMOTIDINE 20 MG/2 ML VIAL IV ONE (08:45)
[2021-06-09 09:03] LABS: Absolute Lymphocytes (CBC) 1.7 K/uL (0.7-4.9); Hematocrit 39.6 % (36.0-45.0); Lymphocytes % 20.5 % (15.3-44.8); MPV 9.7 fL (7.6-11.3); RBC Red Blood Cell Count 4.33 M/uL (3.86-4.86)
[2021-06-09 09:31] LABS: Albumin 3.4 g/dL (3.4-5.0); Bilirubin Direct 0.2 mg/dL (0-0.2); Bilirubin Total 1.2 mg/dL (0.2-1.0); Protein, Total 6.7 g/dL (6.4-8.2)
[2021-06-09 09:33] LABS: Potassium 3.7 mmol/L (3.5-5.1)
--- NOTE | 2021-06-09 09:58 | RAD REPORT ---
EXAM DESCRIPTION: CTAbdomen Pelvis W Contrast - 06/09/2021 9:50 am CLINICAL HISTORY: ABD PAIN COMPARISON: Abdomen Pelvis W Contrast dated 11/24/2020; Abdomen Pelvis Wo Contrast dated 02/05/2020 TECHNIQUE: CT of the abdomen and pelvis was performed. All CT scans are performed using dose optimization technique as appropriate and may include automated exposure control or mA/KV adjustment according to patient size. FINDINGS: Lower chest: No acute abnormality. Partially imaged left breast prosthesis. Liver: No acute abnormality or suspicious lesions. Biliary: No biliary ductal dilatation. Stomach: No significant focal abnormality. Duodenum: No significant focal abnormality. Pancreas: No significant abnormality. Spleen: Splenectomy with splenosis Adrenal: No adrenal masses . Kidney/ureter: No hydronephrosis. No renal calculi. Retroperitoneum: No retroperitoneal adenopathy. Vascular: No aneurysm. Atherosclerosis. Bowel: No significant focal abnormality. Normal appendix. Peritoneum: No ascites or free air. Bladder: Grossly unremarkable. Reproductive: No adnexal masses. Bones: No acute fracture. 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 Multilevel degenerative change s are present in the spine. Other: n/a IMPRESSION: No acute intra-abdominal or pelvic finding. Incidental findings noted above.
[2021-06-09 10:06] LABS: SARS-COV-2 RT PCR NEGATIVE (NEGATIVE)
--- NOTE | 2021-06-09 11:30 | EDPHYS ---
Physician Documentation [facility] Name: Alejandrina Russo Age: 66 yrs Sex: Female : 1955 Arrival Date: 06/09/2021 Time: 08:03 Bed 19 Private MD: ED Physician Calvin Stockton HPI: 06/09 09:16 This 66 yrs old Female presents to ER via Wheelchair with complaints of Abdominal Pain, kdr Nausea. 09:16 The patient presents to the emergency department with nausea, vomiting, diarrhea, kdr abdominal pain. Onset: The symptoms/episode began/occurred suddenly, Patient states that on Monday she became ill. This is similar to her prior visit back in October or November of last year. She is somewhat improved yesterday unable to take some p.o. nutrition however today she is back to her same abdominal pain and nausea and vomiting. Initially onset she immediately had diarrhea through the morning and then that resolved but she continued with vomiting intermittently. Her pain has been intermittent and she does not believe that she has had any flatus since yesterday.. Possible causes: unknown. The symptoms are aggravated by food , The symptoms are alleviated by nothing. Associated signs and symptoms: Pertinent positives: abdominal pain, diarrhea, nausea, vomiting, Pertinent negatives: anorexia, constipation, dysuria, fever, flatulence, GI bleeding, hematuria, vaginal discharge. Severity of symptoms: At their worst the symptoms were mild moderate this morning. The patient has experienced similar episodes in the past, a few times. The patient has not recently seen a physician. As noted elsewhere, the patient began with diarrhea on Monday morning. That resolved but then she started to have nausea and vomiting. That is intermittent has waxed and waned over the weekend and was somewhat better yesterday. Today however the symptoms returned full force and she has had considerable low intermittent abdominal pain. She states her last bowel movement was yesterday and that she has had no flatus out today. Patient appears mildly discomforted in bed at this time. Historical: - Allergies: 08:12 Ibuprofen; jd3 08:12 Tylenol-Codeine #3; jd3 - Home Meds: 08:12 Xanax Oral [Active]; jd3 - PSHx: 08:12 abdomen; R mastectomy; Spleenectomy; jd3 - Immunization history:: Adult Immunizations up to date, Client reports receiving the 2nd dose of the Covid vaccine. - Social history:: Smoking status: Patient/guardian denies using tobacco, the patient reports quitting approximately 7 years ago. ROS: 09:16 Constitutional: Negative for fever, chills, and weight loss, Eyes: Negative for injury, kdr pain, redness, and discharge, ENT: Negative for injury, pain, and discharge, Neck: Negative for injury, pain, and swelling, Cardiovascular: Negative for chest pain, palpitations, and edema, Respiratory: Negative for shortness of breath, cough, wheezing, and pleuritic chest pain, Back: Negative for injury and pain, : Negative for injury, bleeding, discharge, and swelling, MS/Extremity: Negative for injury and deformity, Skin: Negative for injury, rash, and discoloration, Neuro: Negative for headache, weakness, numbness, tingling, and seizure activity. Psych: Negative for depression, anxiety, suicide ideation, homicidal ideation, and hallucinations, Allergy/Immunology: Negative for hives, rash, and allergies, Endocrine: Negative for neck swelling, polydipsia, polyuria, polyphagia, and marked weight changes, Hematologic/Lymphatic: Negative for swollen nodes, abnormal bleeding, and unusual bruising. 09:16 Abdomen/GI: Positive for abdominal pain, nausea and vomiting, diarrhea, abdominal cramps, Negative for abdominal distension, anorexia, black/tarry stool, rectal pain, rectal bleeding, bowel incontinence. Exam: 09:16 Constitutional: This is a well developed, well nourished patient who is awake, alert, kdr and in no acute distress. Head/Face: Normocephalic, atraumatic. Eyes: Pupils equal round and reactive to light, extra-ocular motions intact. Lids and lashes normal. Conjunctiva and sclera are non-icteric and not injected. Cornea within normal limits. Periorbital areas with no swelling, redness, or edema. Neck: Trachea midline, no thyromegaly or masses palpated, and no cervical lymphadenopathy. Supple, full range of motion without nuchal rigidity, or vertebral point tenderness. No Meningismus. Chest/axilla: Normal chest wall appearance and motion. Nontender with no deformity. No lesions are appreciated. Cardiovascular: Regular rate and rhythm with a normal S1 and S2. No gallops, murmurs, or rubs. Normal PMI, no JVD. No pulse deficits. Respiratory: Lungs have equal breath sounds bilaterally, clear to auscultation and percussion. No rales, rhonchi or wheezes noted. No increased work of breathing, no retractions or nasal flaring. Back: No spinal tenderness. No costovertebral tenderness. Full range of motion. Skin: Warm, dry with normal turgor. Normal color with no rashes, no lesions, and no evidence of cellulitis. MS/ Extremity: Pulses equal, no cyanosis. Neurovascular intact. Full, normal range of motion. Neuro: Awake and alert, GCS 15, oriented to person, place, time, and situation. Cranial nerves II-XII grossly intact. Motor strength 5/5 in all extremities. Sensory grossly intact. Cerebellar exam normal. Normal gait. Psych: Awake, alert, with orientation to person, place and time. Behavior, mood, and affect are within normal limits. 09:16 Abdomen/GI: Inspection: abdomen appears normal, scar(s), are noted in the epigastric area, umbilical area and suprapubic area, Bowel sounds: active, diminished, in all quadrants, Palpation: soft, mild abdominal tenderness, in all quadrants. Vital Signs: 08:13 BP 114 / 84; Pulse 98; Resp 17 S; Temp 98.1(O); Pulse Ox 97% on R/A; Weight 49.44 kg jd3 (R); Height 5 ft. 7 in. (170.18 cm) (R); Pain 5/10; 09:08 BP 118 / 87; Pulse 95; Resp 16; Pulse Ox 98% on R/A; henson 10:16 BP 98 / 71; Pulse 61; Resp 18; Pulse Ox 100% on R/A; henson 08:13 Body Mass Index 17.07 (49.44 kg, 170.18 cm) jd3 MDM: 09:16 Data reviewed: vital signs, nurses notes, lab test result(s), radiologic studies. kdr Counseling: I had a detailed discussion with the patient and/or guardian regarding: the historical points, exam findings, and any diagnostic results supporting the discharge/admit diagnosis, lab results, radiology results. 11:29 Patient medically screened. kdr 06/09 08:18 Order name: Basic Metabolic Panel; Complete Time: 10:44 kdr 06/09 08:18 Order name: CBC with Diff; Complete Time: 10:44 kdr 06/09 08:18 Order name: Hepatic Function; Complete Time: 10:44 kdr 06/09 08:18 Order name: Lipase; Complete Time: 10:44 kdr 06/09 08:52 Order name: COVID-19/FLU A+B (Document "Date of Onset" if Symptomatic) kdr 06/09 08:52 Order name: COVID-19/FLU A+B; Complete Time: 10:44 EDMS 06/09 08:18 Order name: IV Saline Lock; Complete Time: 08:55 kdr 06/09 08:18 Order name: Labs collected and sent; Complete Time: 08:55 kdr 06/09 08:46 Order name: CT Abd/Pelvis - IV Contrast Only; Complete Time: 10:44 kdr 06/09 10:46 Order name: PO challenge kdr Administered Medications: 08:54 Drug: morphine 2 mg Route: IVP; Site: left antecubital; henson 08:54 Drug: Zofran (Ondansetron) 4 mg Route: IVP; Site: left antecubital; henson 08:55 Follow up: Response: No adverse reaction henson 08:54 Drug: Pepcid (famotidine) 20 mg Route: IVP; Site: left antecubital; henson 08:54 Follow up: Response: No adverse reaction henson 08:54 Drug: NS 0.9% 500 ml Route: IV; Rate: bolus; Site: left antecubital; henson Disposition Summary: 06/09/21 11:29 Discharge Ordered Location: Home kdr Problem: an acute exacerbation kdr Symptoms: have improved kdr Condition: Stable kdr Diagnosis - Abdominal pain, Generalized kdr - Vomiting kdr - Cyclical vomiting, not intractable kdr Followup: kdr - With: Private Physician - When: 2 - 3 days - Reason: If symptoms return, Further diagnostic work-up, Recheck today's complaints, Continuance of care, Re-evaluation by your physician Discharge Instructions: - Discharge Summary Sheet kdr - Abdominal Pain, Adult, [id number] kdr - Cyclic Vomiting Syndrome, Adult kdr Forms: - Medication Reconciliation Form kdr - Thank You Letter kdr Prescriptions: - Reglan 10 mg Oral Tablet - take 1 tablet by ORAL route every 6 hours As needed take 30 minutes before kdr meals and at bedtime; 20 tablet; Refills: 0, Product Selection Permitted - Pepcid 20 mg Oral Tablet - take 1 tablet by ORAL route once daily; 20 tablet; Refills: 0, Product kdr Selection Permitted Signatures: Dispatcher [employer] Calvin Louis MD MD kdr Davies, Jonathon, RN RN jd3 Mariana Joiner RN RN henson Corrections: (The following items were deleted from the chart) 08:11 Social history: Smoking status: carmen morales 08:11 Immunization history: Adult Immunizations up to date, carmen jcaden
--- NOTE | 2021-06-09 11:30 | ER ---
Nurse's Notes [facility] Name: Alejandrina Russo Age: 66 yrs Sex: Female : 1955 Arrival Date: 06/09/2021 Time: 08:03 Bed 19 Private MD: Diagnosis: Abdominal pain, Generalized;Vomiting;Cyclical vomiting, not intractable Presentation: 06/09 08:10 Chief complaint: Patient states: "I have been throwing up and dry heaving since Monday jd3 with stomach pain and now loosing weight.". Coronavirus screen: At this time, the client does not indicate any symptoms associated with coronavirus-19. Ebola Screen: Patient negative for fever greater than or equal to 101.5 degrees Fahrenheit, and additional compatible Ebola Virus Disease symptoms. Initial Sepsis Screen: Does the patient meet any 2 criteria? No. Patient's initial sepsis screen is negative. Does the patient have a suspected source of infection? No. Patient's initial sepsis screen is negative. Risk Assessment: Do you want to hurt yourself or someone else? Patient reports no desire to harm self or others. Onset of symptoms was June 04, 2021. 08:10 Acuity: HE 3 jd3 08:10 Method Of Arrival: Wheelchair jd3 Triage Assessment: 08:17 General: Appears in no apparent distress. Behavior is calm, cooperative. henson Historical: - Allergies: 08:12 Ibuprofen; jd3 08:12 Tylenol-Codeine #3; jd3 - Home Meds: 08:12 Xanax Oral [Active]; jd3 - PSHx: 08:12 abdomen; R mastectomy; Spleenectomy; jd3 - Immunization history:: Adult Immunizations up to date, Client reports receiving the 2nd dose of the Covid vaccine. - Social history:: Smoking status: Patient/guardian denies using tobacco, the patient reports quitting approximately 7 years ago. Screenin:16 Abuse screen: Denies threats or abuse. Denies injuries from another. Nutritional henson screening: No deficits noted. Tuberculosis screening: No symptoms or risk factors identified. Fall Risk None identified. Assessment: 08:16 Pain: Complains of pain in abdomen. GI: Bowel sounds present X 4 quads. Abd is soft Abd henson is non tender Reports upper abdominal pain, nausea, vomiting. Vital Signs: 08:13 BP 114 / 84; Pulse 98; Resp 17 S; Temp 98.1(O); Pulse Ox 97% on R/A; Weight 49.44 kg jd3 (R); Height 5 ft. 7 in. (170.18 cm) (R); Pain 5/10; 09:08 BP 118 / 87; Pulse 95; Resp 16; Pulse Ox 98% on R/A; henson 10:16 BP 98 / 71; Pulse 61; Resp 18; Pulse Ox 100% on R/A; henson 08:13 Body Mass Index 17.07 (49.44 kg, 170.18 cm) jd3 ED Course: 08:03 Patient arrived in ED. mr 08:06 Calvin Stockton MD is Attending Physician. kdr 08:11 Triage completed. jd3 08:14 Arm band placed on. jd3 08:16 Patient has correct armband on for positive identification. Bed in low position. henson 08:16 No provider procedures requiring assistance completed. henson 08:56 Basic Metabolic Panel Sent. henson 08:56 CBC with Diff Sent. henson 08:56 Hepatic Function Sent. henson 08:56 Lipase Sent. henson 09:08 COVID-19/FLU A+B (Document "Date of Onset" if Symptomatic) Sent. henson 09:50 CT Abd/Pelvis - IV Contrast Only In Process Unspecified. EDMS 11:47 IV discontinued, intact, Pressure dressing applied. henson Administered Medications: 08:54 Drug: morphine 2 mg Route: IVP; Site: left antecubital; henson 08:54 Drug: Zofran (Ondansetron) 4 mg Route: IVP; Site: left antecubital; henson 08:55 Follow up: Response: No adverse reaction henson 08:54 Drug: Pepcid (famotidine) 20 mg Route: IVP; Site: left antecubital; henson 08:54 Follow up: Response: No adverse reaction henson 08:54 Drug: NS 0.9% 500 ml Route: IV; Rate: bolus; Site: left antecubital; henson Outcome: 11:29 Discharge ordered by . kdr 11:47 Discharged to home with family. henson 11:47 Condition: good 11:47 Discharge instructions given to patient, family, Prescriptions given X 2. 11:47 Patient left the ED. henson Signatures: Dispatcher [employer] EDMS RitCalvin peterson MD MD kdr Rivera, Mary mr Green, MITESH Garcia RN jd3 Alisa-Stager, MITESH Peña RN henson Corrections: (The following items were deleted from the chart) 08:11 Social history: Smoking status: carmen morales 0814 08:11 Immunization history: Adult Immunizations up to date, j jd3 08:55 08:55 morphine 2 mg IVP in left antecubital henson henson 10:18 10:14 BP 156 / 76; Pulse 64bpm; Resp 18bpm; Pulse Ox 100% RA; henson henson
[2021-06-09 12:05] VITALS: TEMP 98.1
[2021-06-09 12:08] VITALS: BP 98/71; O2SAT 100
[2021-06-09 18:05] LABS: Urine Blood 3+ (Negative); Urine Glucose Negative (Negative); Urine Protein 2+ (Negative); Urine Specific Gravity 1.025 (1.005-1.030); Urine pH 5.5 (5.0-7.0)
== END 2021-06-09 11:47 | disposition home or self-care (01) ==
LOC: ER 08:00
DX: R11.15 Cyclical vomiting syndrome unrelated to migraine (principal); Z20.822 Contact with and (suspected) exposure to COVID-19; Z88.5 Allergy status to narcotic agent; Z88.6 Allergy status to analgesic agent
CPT/HCPCS: 85025; 80048; 36415; 80076; 81003; 83690; 0240U; 74177; Q9967; J2270; J7040; J2405; 96374; 96375; 99284

== ENCOUNTER 2021-12-10 15:36 | Emergency (ER) | payer OTHER ==
--- OUTSIDE RECORDS SUMMARY | 2021-12-10 15:41 | XMS REPORT | Continuity of Care Document ---
:1955 Author Organization [facility] t Address [address] [place] [address] Care Team Providers Name Role Phone ALICE [...] Active U nivers - ity of 00:00: [address] Branch Hypertensi Hypertensi Disease [facility] All[facility]ies, Adverse Reactions, Alerts Allergy Allergy Status Severity Reaction(s) Onset Inactive Treating Comm ents Source Name Type Date Date Clinician NO KNOWN Drug Active Univers ALLERGIE Class ity of S [facility] Social History Social Habit Start Date Stop Date Quantity Comments Source Sex Assigned At Universit y of [facility] Exposure to Not sure University of SARS-CoV-2 [facility] (event) Branch Alcohol intake 2019-10-16 2019-10-16 University of 00:00:00 00:00:00 [facility] Tobacco Comment 2019-10-15 2019-10-15 vaping, cigarettes U niversity of 00:00:00 00:00:00 20 years [facility] Smoking Status Start Date Stop Date Source Current every day smoker 2019-10-16 00:00:00 Uni versity of [facility] Medications Ordered Filled Start Stop Current Ordering Indication Dosage Frequency Signature Comments Components Source Medication Medication Date Date Medication? Clinician (SIG) Name Name acetaminoph 2020-0 Yes 650mg 650 mg, Un [place] en 10-15 Oral, ity of (TYLENOL) 21:14: Q4HPRN, [place] tablet 650 18 Starting Medic al mg Mon [place] 10/16/19 at 1614, Until Discontinu ed, Routine, Pain (scale 1-3) lisinopril 2020-0 Yes 20mg 20 mg, Unive rs (PRINIVIL,Z 10-15 Oral, ity of ESTRIL) 14:00: DAILY, [place] tablet 20 00 First dose Medi wilbert mg on Mon [place] 10/16/19 at 0900, Until Discontinu ed enoxaparin 2019-0 Yes 40mg 40 mg, Unive rs (LOVENOX) 10-15 Subcutaneo ity of injection 14:00: [place] 40 mg 00 First dose Medical on Mon [place] 10/16/19 at 0900, Until Discontinu ed, Routine docusate 2019-0 Yes 100mg 100 mg, Unive rs (COLACE) 10-15 Oral, BID, ity o f capsule 100 13:00: First dose [place] mg 00 on Mon [facility] 10/16/19 at Branch 0800, Until Discontinu ed, Routine lactobacill 2019-0 Yes 1{tbl} 1 tablet, Univers us 10-15 Oral, BID, ity of acidophilus 04:45: First dose [place] (ACIDOPHILL 00 on Mon Medica l [place]) 25 10/15/19 at [place] million 2345, cell -100 Until mg captab [...] TIDPRN, [place] 28 Starting Medical [facility] Branch 10/15/19 at 2339, Until Discontinu ed, Routine, anxiety ondansetron 2019-0 Yes 4mg 4 mg, Slow Univers (ZOFRAN 27 IV Push, ity of (PF)) 01:19: Q6HPRN, [place] injection 4 36 Starting Medi wilbert mg [facility] Branch 10/15/19 at 2019, Until Discontinu ed, Routine, Nausea and Vomiting (N/V) iohexol 2019-0 2020- No 77mL 77 mL, Univers (OMNIPAQUE 10-14 05-26 Intravenou it y of 350 BULK-75 23:30: 23:12 s, ONCE, 1 [place] mL) 00 :00 dose, [facility] Medical injection 10/15/19 at Bran ch 77 [...] by mouth ity of tablet 00:00: with [place] evening Medical meal. Branch Vital Signs Vital Name Observation Time Observation Value Comments Source Systolic blood 2019-10-16 21:00:00 143 mm[Hg] Univer sity of pressure [facility] Diastolic blood 2019-10-16 21:00:00 89 mm[Hg] Unive rsity of [facility] Heart rate 2019-10-16 21:00:00 88 /min [facility] Body temperature 2019-10-16 21:00:00 37.17 Vee [facility] Respiratory rate 2019-10-16 21:00:00 22 /min [facility] Oxygen saturation in 2019-10-16 21:00:00 93 /min [facility] Arterial blood by [facility] Pulse oximetry [place] Body height 2019-10-16 02:35:00 170.2 cm [facility] Body weight 2019-10-16 02:35:00 53.524 kg [facility] BMI 2019-10-16 02:35:00 18.48 kg/m2 [facility] Systolic blood 2019-10-16 21:00:00 143 mm[Hg] Univer sity of pressure [facility] Diastolic blood 2019-10-16 21:00:00 89 mm[Hg] Unive rsity of [facility] Heart rate 2019-10-16 21:00:00 88 /min [facility] Body temperature 2019-10-16 21:00:00 37.17 Vee [facility]piratory rate 2019-10-16 21:00:00 22 /min [facility] Oxygen saturation in 2019-10-16 21:00:00 93 /min University of Arterial blood by [place] Medi wilbert Pulse oximetry Branch Body height 2019-10-16 02:35:00 170.2 cm Universi ty of [place] [facility] Body weight 2019-10-16 02:35:00 53.524 kg Universi ty of [place] [facility] BMI 2019-10-16 02:35:00 18.48 kg/m2 Universi ty of [facility] Branch Respiratory rate 2019-10-15 21:29:00 35 /min Univ ersity of [place] [facility] Systolic blood 2019-10-15 21:13:00 116 mm[Hg] Univer sity of pressure [place] [facility] Diastolic blood 2019-10-15 21:13:00 82 mm[Hg] Unive rsity of pressure [facility] Branch Heart rate 2019-10-15 21:13:00 95 /min Universi ty of [facility] Body temperature 2019-10-15 21:13:00 37.22 Vee Univ ersity of [facility] Branch Body height 2019-10-15 21:13:00 170.2 cm Universi ty of [place] [facility] Body weight 2019-10-15 21:13:00 51.71 kg Universi ty of [place] [facility] BMI 2019-10-15 21:13:00 17.85 kg/m2 Universi ty of [facility] Branch Oxygen saturation in 2019-10-15 21:13:00 96 /min University of Arterial blood by [facility] wilbert Pulse oximetry Branch Respiratory rate 2019-10-15 21:29:00 35 /min Univ ersity of [facility] Branch Systolic blood 2019-10-15 21:13:00 116 mm[Hg] Univer sity of pressure [place] [facility] Diastolic blood 2019-10-15 21:13:00 82 mm[Hg] Unive rsity of pressure [place] [facility] Heart rate 2019-10-15 21:13:00 95 /min Universi ty of [place] [facility] Body temperature 2019-10-15 21:13:00 37.22 Vee Univ ersity of [place] [facility] Body height 2019-10-15 21:13:00 170.2 cm Universi ty of [place] [facility] Body weight 2019-10-15 21:13:00 51.71 kg Universi ty of [place] [facility] BMI 2019-10-15 21:13:00 17.85 kg/m2 [facility] Oxygen saturation in 2019-10-15 21:13:00 96 /min University of Arterial blood by [facility] Pulse oximetry Branch Procedures Procedure Date / Time Performing Clinician Source Performed AUTHORIZATION FOR 2019-11-04 05:01:00 Doctor Unassigned, No Univ [facility] RELEASE OF PHI Name Medical Branch ECHO ROUTINE W/DOPPLER 2019-10-16 19:42:38 Chantelle Franz [facility] COLOR [facility] TROPONIN I 2019-10-16 13:17:00 Chantelle Franz [facility] CORTISOL AM 2019-10-16 11:13:00 Osei [facility] BASIC METABOLIC PANEL 2019-10-16 11:13:[address] [facility] (NA, K, CL, CO2, Medical Branch GLUCOSE, BUN, CREATININE, CA) CBC WITH DIFFERENTIAL 2019-10-16 11:13:00 Osei ilene [facility] TROPONIN I 2019-10-16 07:05:00 Chantelle Franz [facility] PNEUMOCOCCAL ANTIGEN 2019-10-16 03:36:00 Chantelle Franz [facility] URINALYSIS 2019-10-16 03:35:00 Osei ilene [facility] LEGIONELLA URINARY 2019-10-16 03:35:00 Chantelle Franz [facility] ANTIGEN TST [facility] RESPIRATORY PANEL BY PCR 2019-10-16 03:08:00 Chantelle Franz [facility] COVID-19 (PCR MOLECULAR 2019-10-16 03:08:00 Chantelle Franz [facility] TESTING) [facility] LACTATE DEHYDROGENASE 2019-10-16 03:05:00 Osei ilene [facility] C-REACTIVE PROTEIN 2019-10-16 03:05:00 Chantelle Franz [facility] TROPONIN I 2019-10-16 03:05:00 Osei ilene [facility] PROCALCITONIN 2019-10-16 03:04:00 Osei ilene [facility] AC VBG + LACTIC ACID 2019-10-16 02:59:00 Chantelle Franz [facility] CT CHEST PULMONARY 2019-10-15 23:20:33 Anjel Rodriguez [facility] ANGIOGRAM Medical Branch N-TERMINAL PRO-BNP 2019-10-15 22:34:00 Anjel Rodriguez [facility] CREATINE KINASE 2019-10-15 22:34:00 Osei [facility] FERRITIN SERUM 2019-10-15 22:34:00 Osei [facility] TROPONIN I 2019-10-15 22:34:00 Michael Anjel [facility] HEPATIC FUNCTION PANEL 2019-10-15 22:34:00 Anjel Rodriguez [facility] ([id number]) (ALB,T.PRO,BILI Medical Branch T,BU/BC,ALT,AST,ALK PHOS) BASIC METABOLIC PANEL 2019-10-15 22:34:[address] [facility] (NA, K, CL, CO2, Medical Branch GLUCOSE, BUN, CREATININE, CA) LIPID PANEL 2019-10-15 22:34:00 Osei ilene [facility] ([id number])(TOTAL Medical Branch CHOLESTEROL, TRIGLYCERIDES, HDL) PROTHROMBIN TIME / INR 2019-10-15 22:34:00 Anjel Rodriguez [facility] D-DIMER 2019-10-15 22:34:00 Osei [facility] ACTIVATED PARTIAL 2019-10-15 22:34:00 Michael [facility] THRMPLAS NI [facility] COVID-19 (PCR MOLECULAR 2019-10-15 22:33:00 Anjel Rodriguez [facility] TESTING) Medical Branch SEDIMENTATION RATE 2019-10-15 22:33:00 Osei ilene [facility] CBC WITH DIFFERENTIAL 2019-10-15 22:33:00 Anjel Rodriguez [facility] GLYCOSYLATED HEMOGLOBIN 2019-10-15 22:33:00 Osei [facility] (A1C) Medical Branch EKG-12 LEAD 2019-10-15 22:09:35 Anjel Rodriguez [facility] Encounters Start End Encounter Admission Attending Care Care Encounter Source Date/Time Date/Time Type Type Clinicians Facility Department ID 2020-06-24 2020-06-24 [id number] [facility] 11:48:00 11:48:00 [id number] Family Practic e 2020-05-06 2020-05-06 Outpatient ANDRÉS, MHBL MHBL [id number] [facility]BL 12:26:00 16:39:00 TAMMY 2020-04-29 2020-04-29 Outpatient [place] [id number] [facility] 14:00:00 14:00:00 [id number] ity of [facility] 2019-11-04 2019-11-04 Orders Doctor CINDI 1.2.840.114 [id number] 00:00:00 00:00:00 Only Unassigned, DARREL [id number] [place] [facility] 4.2.7.2.686 [id number] 2019-11-04 2019-11-04 Orders Doctor PUENTE 1.2.840.114 [id number] Univers 00:00:00 00:00:00 Only Unassigned, DARREL 350.1.13.10 ity of [place] [facility] 4.2.7.2.686 [facility] [id number] [facility] 009 Branch 2019-10-15 2019-10-16 Emergency Anjel Rodriguez [facility] 1.2.840. 114 [id number] 17:09:10 18:24:00 [place]at [place] 350.1.13.10 Chantelle Franz 4.2.7.2.686 [place] [id number] 2019-10-15 2019-10-16 Outpatient X OSEI [facility] [id number] [facility] 17:09:10 18:24:00 ADNAN ity of [facility] 2019-10-15 2019-10-16 Emergency Anjel Rodriguez [facility] 1.2.840. 114 [id number] [facility] 17:09:10 18:24:00 [place] 350.1.13.10 ity of Chantelle Franz 4.2.7.2.686 [facility] [id number] [facility] 080 [place] 2019-10-15 2019-10-15 Urgent Pob1, Acute [facility] 1.2.840.114 [id number] 16:00:05 16:20:05 [facility] [id number] [place] 4.2.7.2.686 Professio [id number] nal [address] 2019-10-15 2019-10-15 Urgent Pob1, Acute Care Clinic [facility] 1. 2.840.114 [id number] [facility] 16:00:05 16:20:05 [facility] 350.1.1 3.10 ity of [place] 4.2.7.2.686 Sever[place] as Professio [id number] Me dical nal 044 Branch [address] 2019-10-15 2019-10-15 Outpatient R [place] [id number] Univers 15:40:00 15:40:00 [facility] Results Test Description Test Time Test Comments Results Result Comments Source RESPIRATORY PANEL BY PCR 2019-10-16 18:21:00 Test Item Value Reference Range Interpretation Comme nts Adenovirus (test code = 24428-6) Negative Negative Coronavirus HKU1 (test code = 76094-5) Negative Negative Coronavirus NL63 (test code = 93277-9) Negative Negative Coronavirus 229E (test code = 91668-3) Negative Negative Coronavirus OC43 (test code = 22374-4) Negative Negative Human Metapneumovirus (test code = Negative Negative 46918-8) Human Rhinovirus/Enterovirus (test Negative Negative code = 27502-5) Influenza A (test code = 68291-7) Negative Negative Influenza B (test code = 41214-2) Negative Negative Parainfluenza Virus 1 (test code = Negative Negative 26608-4) Parainfluenza Virus 2 (test code = Negative Negative 26182-9) Parainfluenza Virus 3 (test code = Negative Negative 32799-6) Parainfluenza Virus 4 (test code = Negative Negative 83968-2) Respiratory Syncytial Virus (test code Negative Negative = 94135-9) Bordetella parapertussis (test code = Negative Negative 74111-1) Bordetella pertussis (test code = Negative Negative 97265-9) Chlamydia pneumoniae (test code = Negative Negative 64561-8) Mycoplasma pneumoniae (test code = Negative Negative 72133-2) CHERYL (test code = CHERYL) Negative:A negative result does not rule-out infection. ?This assay does not test for all potential infectious agents. ? Positive:A positive test result does not necessarily indicate the presence of viable organism. ? Lab Interpretation (test code = Normal 38700-7) [facility] [id number] 16:46:00 Test Item Value Reference Range Interpretation Comments MENDOZA AM (test code = 12.9 ug/dL 4.5-23 9557628814) CHERYL (test code = CHERYL) Biotin has been reported to cause a positive bias, interpret results relative to patient's use of biotin. Lab Interpretation (test Normal code = 58936-0) [facility] [id number] 16:08:00 Test Item Value Reference Range Interpretation Comments TROPONIN I (test <0.012 See_Comment [Automated code = 4395580513) message] The system which generated this result [...] ? Lab Interpretation Normal (test code = 38661-2) [facility]-REACT[facility] [id number] 15:42:00 Test Item Value Reference Range Interpretation Comments CRP (test code = 7862154244) 22.8 mg/dL <0.8 H Lab Interpretation (test code = Abnormal 44776-9) [facility] URINARY ANTIGEN [id number] 15:00:00 Test Item Value Reference Range Interpretation Comments Legionella Urinary Negative Negative Antigen (test code = 0256786782) CHERYL (test code = CHERYL) Negative for [...] test. Lab Interpretation (test Normal code = 15639-0) [facility]NEUM[facility]OCCAL [id number] 15:00:00 Test Item Value Reference Range Interpretation Comments S. pneumoniae antigen (test code = Negative Negative 8714722122) Lab Interpretation (test code = Normal 46774-2) [facility]AL[facility]IN2020-05-27 14:06:00 Test Item Value Reference Range Interpretation Comments Procalcitonin (test 0.04 ng/mL <0.07 code = 9841937254) CHERYL (test code = CHERYL) INTERPRETATION OF [...] lung abscess/empyema. For further information please refer to:[email or web address] Lab Interpretation Normal (test code = 53061-0) [facility] METABOLIC PANEL (NA, K, CL, CO2, GLUCOSE, BUN, CREATININE, CA)2019-10-16 13:18:00 Test Item Value Reference Range Interpretation Comments NA (test code = 138 mmol/L 135-145 0174346279) K (test code = 3.8 mmol/L 3.5-5 9674328037) CL (test code = 103 mmol/L 98-108 5285842592) CO2 TOTAL (test code = 26 mmol/L 23-31 1622482830) AGAP (test code = 2-16 7646937202) BUN (test code = 11 mg/dL 7-23 7778891774) GLUCOSE (test code = 82 mg/dL 70-110 0124486661) CREATININE (test code 0.59 mg/dL 0.5-1.04 = 3817435883) CALCIUM (test code = 9.1 mg/dL 8.6-10.6 5874386471) eGFR Calculation mL/min/1.73m2 (Non-) (test code = 3146839406) eGFR Calculation mL/min/1.73m2 () (test code = 5888598453) CHERYL (test code = CHERYL) Association of [...] or urine or abnormalities in imaging tests). [facility] WITH [id number] 13:11:00 Test Item Value Reference Range Interpretation [...] RDW-SD (test code = 47.8 fL 39-49.9 41147-0) RDW-CV (test code = 14.1 % 12-15.5 788-0) PLT (test code = See_Comment [Automated 777-3) message] The sy stem which generated this result transmitted reference range : 166 - 358 10*3/ ?L. The reference r marguerite was not used to interpret this result as normal/abnormal . MPV (test code = 12.2 fL 9.5-12.9 93368-5) NRBC/100 WBC (test See_Comment [Automat ed code = 7694189038) message] The system which generated this result transmitted reference range : 0.0 - 10.0 /100 WBCs. The refer ence range was not u sed to interpret th is result as normal/abnormal . NRBC x10^3 (test code <0.01 See_Comment [Auto mated = 4410376687) message] The s ystem which generated this result transmitted reference range : 10*3/?L. The reference range was not used to interpret this result as normal/abnormal . GRAN MAT (NEUT) % 69.0 % (test code = 770-8) IMM GRAN % (test code 0.40 % = 0156330150) LYMPH % (test code = 17.0 % 736-9) MONO % (test code = 9.7 % 5905-5) EOS % (test code = 2.8 % 713-8) BASO % (test code = 1.1 % 706-2) GRAN MAT x10^3(ANC) 7.68 10*3/uL 1.88-7.09 H (test code = 4066912167) IMM GRAN x10^3 (test 0.05 10*3/uL 0-0.06 code = 9934058006) LYMPH x10^3 (test code 1.89 10*3/uL 1.32-3.29 = 731-0) MONO x10^3 (test code 1.08 10*3/uL 0.33-0.92 H = 742-7) EOS x10^3 (test code = 0.31 10*3/uL 0.03-0.39 711-2) BASO x10^3 (test code 0.12 10*3/uL 0.01-0.07 H = 704-7) Lab Interpretation Abnormal (test code = 26249-9) [facility] [id number] 08:25:00 Test Item Value Reference Range Interpretation Comments TROPONIN I (test <0.012 See_Comment [Automated code = 5479312202) message] The system which generated this result [...] ? Lab Interpretation Normal (test code = 03823-9) [facility] [id number] 05:12:00 Test Item Value Reference Range Interpretation Comments TROPONIN I (test <0.012 See_Comment [Automated code = 7126094099) message] The system which generated this result [...] ? Lab Interpretation Normal (test code = 93548-7) [facility]2020-05-27 05:06:00 Test Item Value Reference Range Interpretation Comments APPEARANCE (test code = Clear Clear 8949822022) COLOR (test code = Yellow Yellow 9801914305) PH (test code = 4.8-8.0 1702707157) SP GRAVITY (test code = 1.003-1.030 H 7419323211) GLU U QUAL (test code = Normal Normal 3046947535) BLOOD (test code = Negative Negative 2354700863) KETONES (test code = Negative Negative 5889059391) PROTEIN (test code = Negative Negative 2887-8) UROBILIN (test code = Normal Normal 8321206920) BILIRUBIN (test code = Negative Negative 4976455273) NITRITE (test code = Negative Negative 9482176855) LEUK DANIEL (test code = Negative Negative 9436398944) RBC/HPF (test code = <1 See_Comment [Autom ated message] 7840598533) The system [employer] generated this result transmitted ref erence range: 0 - 3 HP F. The reference range was not used to int erpret this result as normal/abnormal . WBC/HPF (test code = See_Comment [Autom ated message] 1568587390) The system [employer] generated this result transmitted ref erence range: 0 - 5 HP F. The reference range was not used to int erpret this result as normal/abnormal . BACTERIA (test code = Negative Negative 4841218493) SQ EPITH (test code = HPF 8706748748) Lab Interpretation (test Abnormal code = 88267-6) [facility]anoLACTATE [id number] 04:59:00 Test Item Value Reference Range Interpretation Comments LDH (test code = 2068901756) 1050 U/L 300-600 H Lab Interpretation (test code = Abnormal 18247-5) [facility]ON[facility] COVID-19 [id number] 04:54:00 Test Item Value Reference Range Interpretation Comments SARS-CoV-2 Rapid ID NOW Not Detected Not Detected (test code = 50620-0) CHERYL (test code = CHERYL) ID NOW COVID-19 Assay is an isothermal nucleic acid amplification test intended for the qualitative detection of nucleic acid from SARS-CoV-2 viral RNA in nasopharyngeal (SEWING MACHINES SALESPERSON) specimens. It is used under Emergency Use [...] indicated. Lab Interpretation Normal (test code = 41221-3) [facility]ano[facility] VBG + LACTIC [id number] 03:05:00 Test Item Value Reference Range Interpretation Comments PH (test code = 7.32-7.42 6201825642) PCO2 ELAINA (test code See_Comment [uMix.TVa pippa message] = 4819381154) The system [employer] generated this result transmitted ref erence range: 41 - 51 mmHg. The reference r marguerite was not used to int erpret this result as normal/abnormal . PO2 ELAINA (test code See_Comment [Automat ed message] = 0159925976) The system [employer] generated this result transmitted ref erence range: 25 - 40 mmHg. The reference r marguerite was not used to int erpret this result as normal/abnormal . HCO3 ELAINA (test code See_Comment [uMix.TVa pippa message] = 7865986394) The system [employer] generated this result transmitted ref erence range: 24 - 28 mEq/L. The reference r marguerite was not used to int erpret this result as normal/abnormal . AC VBE(BEAKER) mEq/L (test code = 8011033260) LACTIC ACID (test 1.11 mmol/L 0.5-2.2 code = 9627105474) [facility] CHEST PULMONARY [id number] 02:10:58 No acute pulmonary embolism. Multifocal bilateral [...] study and agree with the abovereport.[facility]anoFERRITIN [id number] 02:10:00 Test Item Value Reference Range Interpretation Comments FERRITIN (test code = 94.2 ng/mL 11-264 3505600184) CHERYL (test code = CHERYL) Biotin has been reported to cause a negative bias, interpret results relative to patient's use of biotin. Lab Interpretation (test Normal code = 64247-3) [facility] PlanoD-[id number] 01:54:00 Test Item Value Reference Interpretation Comments Range D-DIMER (test code = See_Comment H [Autom ated 4155750341) message] The system which generated this result [...] diagnosis. Lab Interpretation Abnormal (test code = 87098-1) [facility] PlanoSEDIMENTATION [id number] 01:51:00 Test Item Value Reference Range Interpretation Comments ESR (test code = See_Comment H [Automated message] 0491331706) The system [employer] generated this result transmitted ref erence range: 0 - 20 m m/HR. The reference r marguerite was not used to interpret this result as normal/abnor mal. Lab Interpretation (test Abnormal code = 79606-9) [facility]anoGLYCOSYLATED HEMOGLOBIN (A1C)2019-10-16 01:48:00 Test Item [...] Indicated Lab Interpretation Normal (test code = 31623-6) [facility] PlanoCREATINE [id number] 01:36:00 Test Item Value Reference Range Interpretation Comments CK (test code = 4662069445) 39 U/L 33-194 Lab Interpretation (test code = Normal 84442-3) [facility] PlanoLIPID PANEL (46898)(TOTAL CHOLESTEROL, TRIGLYCERIDES, HDL)2019-10-16 01:34:00 Test Item Value Reference Range Interpretation Comments CHOL (test code = 119 mg/dL 120-200 L 8660641584) HDL (test code = 26 mg/dL >50 L 4034868307) HDLC RATIO (test code = See_Comment H [Au tomated message] 7191223833) The system [employer] generated this result transmit pippa reference range : <=4.5. The refe rence range was not u sed to interpret th is result as normal/abnormal . TRIG (test code = 87 mg/dL 30-170 0915088364) LDL CHOL (test code = 76 mg/dL See_Comment [Auto mated message] 41113-9) The system [employer] generated this result transmit pippa reference range : <=160. The refe rence range was not u sed to interpret th is result as normal/abnormal . VLDL (test code = 17 mg/dL 5-60 2660179143) Lab Interpretation (test Abnormal code = 22643-6) [facility] [id number] 23:07:00 Test Item Value Reference Range Interpretation Comments TROPONIN I (test <0.012 See_Comment [Automated code = 3713367641) message] The system which generated this result [...] ? Lab Interpretation Normal (test code = 99766-6) [facility] [id number] 23:04:00 Test Item Value Reference Range Interpretation Comments NT-proBNP (test code 556 pg/mL See_Comment H [Autom ated = 3663217441) message] The system which generated this result transmitted reference range : <=125. The reference range was not used to interpret this result as normal/abnormal . CHERYL (test code = CHERYL) Biotin has been reported to cause a negative bias, interpret results relative to patient's use of biotin. Lab Interpretation Abnormal (test code = 34605-3) [facility] COVID-19 [id number] 23:00:00 Test Item Value Reference Range Interpretation Comments SARS-CoV-2 Rapid ID NOW Not Detected Not Detected (test code = 48188-1) CHERYL (test code = CHERYL) ID NOW COVID-19 Assay is an isothermal nucleic acid amplification test intended for the qualitative detection of nucleic acid from SARS-CoV-2 viral RNA in nasopharyngeal ([employer] SAL[employer]) specimens. It is used under Emergency Use [...] indicated. Lab Interpretation Normal (test code = 09489-8) [id number] 22:59:00 Test Item Value Reference Range Interpretation Comments APTT Patient (test See_Comment [Automat ed code = 3173-2) message] The system which generated this result transmitted reference range : 23 - 38 Seconds . The reference range was not used to interpr et this result as normal/abnormal . CHERYL (test code = CHERYL) The [facility] patient population mean normal value for aPTT is 30 seconds. Lab Interpretation Normal (test code = 18551-2) [facility]th[facility] Time (PT) / [id number] 22:59:00 Test Item Value Reference Range Interpretation [...] tions. Lab Interpretation (test Normal code = 92752-3) [facility] Met[facility] (NA, K, CL, CO2, GLUCOSE, BUN, CREATININE, CA)2019-10-15 22:55:00 Test Item Value Reference Range Interpretation Comments NA (test code = 138 mmol/L 135-145 7395937509) K (test code = 3.6 mmol/L 3.5-5 0166692486) CL (test code = 100 mmol/L 98-108 9994743412) CO2 TOTAL (test code = 27 mmol/L 23-31 5028782597) AGAP (test code = 2-16 8189510398) BUN (test code = 11 mg/dL 7-23 3364965290) GLUCOSE (test code = 103 mg/dL 70-110 3424094552) CREATININE (test code 0.73 mg/dL 0.5-1.04 = 0763097002) CALCIUM (test code = 9.1 mg/dL 8.6-10.6 7851423369) eGFR Calculation mL/min/1.73m2 (Non-) (test code = 4489112980) eGFR Calculation mL/min/1.73m2 () (test code = 8815405429) CHERYL (test code = CHERYL) Association of [...] or abnormalities in imaging tests). [facility] (ALB, T.PRO, BILI T, BU/BC, ALT, AST, ALK PHOS)2019-10-15 22:55:00 Test Item Value Reference Range Interpretation Comments TOTAL BILI (test code = 9286407004) 0.8 mg/dL 0.1-1.1 BILI UNCON (test code = 0656950761) 0.8 mg/dL 0.1-1.1 BILI CONJ (test code = 6942573728) 0.0 mg/dL 0-0.3 T PROTEIN (test code = 9976905689) 7.4 g/dL 6.3-8.2 ALBUMIN (test code = 9662440904) 4.0 g/dL 3.5-5 ALK PHOS (test code = 2159572466) 107 U/L 34-122 ALTv (test code = 1742-6) 24 U/L 5-35 AST(SGOT) (test code = 4748756880) 46 U/L 13-40 H Lab Interpretation (test code = Abnormal 76442-4) [facility] WITH [id number] 22:53:00 Test Item Value Reference Range Interpretation Comments WBC (test code = See_Comment H [Automated 2500-2) message] The sy stem which generated this result transmitted reference range : 4.30 - 11.10 10*3/?L. The reference range was not used to interpret this result as normal/abnormal . RBC (test code = See_Comment [Automated 137-8) message] The sy stem which generated this [...] RDW-SD (test code = 48.1 fL 39-49.9 41870-0) RDW-CV (test code = 14.3 % 12-15.5 788-0) PLT (test code = See_Comment [Automated 777-3) message] The sy stem which generated this result transmitted reference range : 166 - 358 10*3/ ?L. The reference r marguerite was not used to interpret this result as normal/abnormal . MPV (test code = 11.9 fL 9.5-12.9 57396-0) NRBC/100 WBC (test See_Comment [Automat ed code = 1088695745) message] The system which generated this result transmitted reference range : 0.0 - 10.0 /100 WBCs. The refer ence range was not u sed to interpret th is result as normal/abnormal . NRBC x10^3 (test code <0.01 See_Comment [Auto mated = 8278262920) message] The s ystem which generated this result transmitted reference range : 10*3/?L. The reference range was not used to interpret this result as normal/abnormal . GRAN MAT (NEUT) % 72.3 % (test code = 770-8) IMM GRAN % (test code 0.60 % = 1832065310) LYMPH % (test code = 16.0 % 736-9) MONO % (test code = 8.8 % 5905-5) EOS % (test code = 1.7 % 713-8) BASO % (test code = 0.6 % 706-2) GRAN MAT x10^3(ANC) 8.99 10*3/uL 1.88-7.09 H (test code = 3628522906) IMM GRAN x10^3 (test 0.07 10*3/uL 0-0.06 H code = 4122853671) LYMPH x10^3 (test code 1.99 10*3/uL 1.32-3.29 = 731-0) MONO x10^3 (test code 1.09 10*3/uL 0.33-0.92 H = 742-7) EOS x10^3 (test code = 0.21 10*3/uL 0.03-0.39 711-2) BASO x10^3 (test code 0.08 10*3/uL 0.01-0.07 H = 704-7) Lab Interpretation Abnormal (test code = 48982-3) [facility]
[2021-12-10] MEDS ORDERED: PANTOPRAZOLE 40 MG INJ ONE (16:27)
[2021-12-10] MEDS ORDERED: ONDANSETRON 4 MG/2 ML VIAL ONE (16:27)
[2021-12-10] MEDS ORDERED: DICYCLOMINE HCL 20 MG/2 ML AMP IM ONE (16:27)
[2021-12-10] MEDS ORDERED: NA CHLORIDE 0.9% 1,000 ML ONE (16:27)
[2021-12-10] MEDS ORDERED: DIPHENHYDRAMINE 50 MG/ML VIAL ONE (16:27)
[2021-12-10 16:54] LABS: Absolute Lymphocytes (CBC) 0.9 K/uL (0.7-4.9); Hematocrit 41.7 % (36.0-45.0); Lymphocytes % 9.9 % (15.3-44.8); MCV 89.8 fL (80-100); MPV 9.8 fL (7.6-11.3); RBC Red Blood Cell Count 4.65 M/uL (3.86-4.86)
[2021-12-10 17:11] LABS: Albumin 4.3 g/dL (3.4-5.0); Potassium 4.2 mmol/L (3.5-5.1)
[2021-12-10 18:31] LABS: Urine Blood Trace-intact (Negative); Urine Glucose Negative (Negative); Urine Protein Negative (Negative)
[2021-12-10 18:53] LABS: Urine Bacteria <20 /HPF (<20); Urine RBC <5 /HPF (None Seen)
--- NOTE | 2021-12-10 19:19 | RAD REPORT ---
EXAM DESCRIPTION: CTAbdomen Pelvis W Contrast - 12/10/2021 6:59 pm CLINICAL HISTORY: Abdominal pain. abdomen pain COMPARISON: <Comparisons> TECHNIQUE: Biphasic CT imaging of the abdomen and pelvis was performed with 100 ml non-ionic IV cont rast. All CT scans are performed using dose optimization technique as appropriate and may include automated exposure control or mA/KV adjustment according to patient size. FINDINGS: The lung bases are clear. Mild fatty liver is present. 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 The pancreas, adrena l glands and kidneys are within normal limits. No hydronephrosis or mass. No bowel obstruction, free air, free fluid or abscess. Aortic atherosclerosis is present. Significant stool is retained throughout the colon. Nonvisualized appendix. No evidence of significant lymphaden opathy. Moderate lumbar degenerative changes. IMPRESSION: No acute intra-abdominal or pelvic finding. Moderate retained stool throughout the colon.
[2021-12-10] MEDS ORDERED: METOCLOPRAMIDE 10 MG/2mL INJ ONE (19:27)
[2021-12-10] MEDS ORDERED: MORPHINE 2 MG/ML SYR ONE (19:27)
--- NOTE | 2021-12-10 19:59 | EDPHYS ---
Physician Documentation [facility] Name: Alejandrina Rusos Age: 66 yrs Sex: Female : 1955 Arrival Date: 12/10/2021 Time: 15:40 Bed 8 Private MD: ED Physician Josh Coppola HPI: 12/10 16:15 This 66 yrs old Female presents to ER via Wheelchair with complaints of Vomiting. cp 16:15 The patient presents to the emergency department with nausea, with "dry heaves", cp vomiting, that is continuous, abdominal pain, of the abdomen diffusely, described as constant. Onset: The symptoms/episode began/occurred this morning. Associated signs and symptoms: Pertinent positives: anorexia, Pertinent negatives: constipation, diarrhea, fever, GI bleeding. Severity of symptoms: in the emergency department the symptoms are unchanged despite home interventions. Patient reports history of cyclic vomiting. Tried taking oral Zofran at home today, but vomiting persist. Historical: - Allergies: 15:49 Ibuprofen; ld1 15:49 Tylenol-Codeine #3; ld1 - PMHx: 15:49 None; ld1 - PSHx: 15:49 abdomen; R mastectomy; Spleenectomy; ld1 - Immunization history:: Adult Immunizations up to date, Client reports receiving the 2nd dose of the Covid vaccine. - Social history:: Smoking status: Reported history of juuling and/or vaping. Patient/guardian denies using alcohol. ROS: 16:20 Constitutional: Negative for body aches, chills, fever, poor PO intake. cp 16:20 Eyes: Negative for injury, pain, redness, and discharge. cp 16:20 ENT: Negative for drainage from ear(s), ear pain, sore throat, difficulty swallowing, difficulty handling secretions. 16:20 Cardiovascular: Negative for chest pain, edema, palpitations. 16:20 Respiratory: Negative for cough, shortness of breath, wheezing. 16:20 Abdomen/GI: Positive for abdominal pain, nausea and vomiting, anorexia, Negative for diarrhea, constipation, hematemesis. 16:20 Neuro: Positive for general weakness, Negative for altered mental status, dizziness, headache, syncope. 16:20 All other systems are negative. Exam: 16:25 Constitutional: The patient appears in no acute distress, alert, awake, non-toxic, well cp developed, well nourished, uncomfortable. 16:25 Head/Face: Normocephalic, atraumatic. cp 16:25 Eyes: Periorbital structures: appear normal, Conjunctiva: normal, no exudate, no injection, Sclera: no appreciated abnormality, Lids and lashes: appear normal, bilaterally. 16:25 ENT: External ear(s): are unremarkable, Nose: is normal, Mouth: Lips: moist, Oral mucosa: moist, Posterior pharynx: Airway: no evidence of obstruction, patent. 16:25 Neck: ROM/movement: is normal, is supple, without pain, no range of motions limitations. 16:25 Chest/axilla: Inspection: normal, Palpation: is normal, no crepitus, no tenderness. 16:25 Cardiovascular: Rate: normal, Rhythm: regular. 16:25 Respiratory: the patient does not display signs of respiratory distress, Respirations: normal, no use of accessory muscles, no retractions, labored breathing, is not present, Breath sounds: are clear throughout, no decreased breath sounds, no stridor, no wheezing. 16:25 Abdomen/GI: Inspection: abdomen appears normal, Bowel sounds: active, all quadrants, Palpation: soft, in all quadrants, moderate abdominal tenderness, in all quadrants, rebound tenderness, is not appreciated, involuntary guarding, is not appreciated. 16:25 Back: pain, is absent, ROM is normal. 16:25 Neuro: Orientation: to person, place \\T\\ time. Mentation: is normal, Motor: moves all fours, strength is normal, Sensation: is normal. Vital Signs: 15:49 BP 175 / 105; Pulse 91; Resp 18; Temp 98.6(O); Pulse Ox 96% on R/A; Weight 49.9 kg; ld1 Height 5 ft. 7 in. (170.18 cm); Pain 0/10; 16:50 BP 161 / 88; Pulse 66; Resp 17; Pulse Ox 99% on R/A; tw2 17:58 BP 147 / 96; Pulse 72; Resp 17; Pulse Ox 98% on R/A; tw2 18:16 BP 147 / 96; Pulse 84; Resp 17; Pulse Ox 99% on R/A; tw2 19:15 BP 149 / 104; Pulse 82; Resp 18; Pulse Ox 98% on R/A; Pain 6/10; lp1 20:11 BP 148 / 80; Pulse 79; Resp 18; Pulse Ox 97% on R/A; lp1 15:49 Body Mass Index 17.23 (49.90 kg, 170.18 cm) ld1 MDM: 15:55 Patient medically screened. 19:59 Data reviewed: vital signs, nurses notes, lab test result(s), radiologic studies, CT cp scan. 19:59 Counseling: I had a detailed discussion with the patient and/or guardian regarding: the cp historical points, exam findings, and any diagnostic results supporting the discharge/admit diagnosis, lab results, radiology results, to return to the emergency department if symptoms worsen or persist or if there are any questions or concerns that arise at home. Response to treatment: the patient's symptoms have markedly improved after treatment, VSS. Nausea and pain markedly improved, vomiting resolved. Patient tolerating po fluids. Will discharge to home for continued monitoring. 12/10 16:10 Order name: CBC with Diff; Complete Time: 17:13 12/10 16:10 Order name: CMP; Complete Time: 17:13 12/10 16:10 Order name: Lipase; Complete Time: 17:13 12/10 16:10 Order name: Urine Microscopic Only; Complete Time: 18:55 12/10 16:10 Order name: XRAY Chest (1 view) 12/10 18:32 Order name: Urine Dipstick-Ancillary; Complete Time: 18:55 EDMS 12/10 18:55 Interpretation: Normal except: UKET 2+; UBLD Trace-intact. 12/10 17:14 Order name: CT Abd/Pelvis - IV Contrast Only; Complete Time: 19:45 12/10 19:46 Interpretation: Report reviewed. 12/10 16:10 Order name: IV Saline Lock; Complete Time: 16:43 12/10 16:10 Order name: Labs collected and sent; Complete Time: 16:43 12/10 16:10 Order name: Urine Dipstick-Ancillary (obtain specimen); Complete Time: 18:31 12/10 19:46 Order name: PO challenge; Complete Time: 20:25 cp Administered Medications: 16:28 Drug: Bentyl (dicyclomine) 20 mg Route: IM; Site: left deltoid; tw2 17:12 Follow up: Response: No adverse reaction; No change in condition; No change in tw2 condition, provider notified. 16:30 Drug: ProTONIX (pantoprazole) 40 mg Route: IVP; Site: left antecubital; tw2 16:46 Follow up: Response: No adverse reaction tw2 16:30 Drug: NS 0.9% 500 ml Route: IV; Rate: bolus; Site: left antecubital; tw2 16:32 Drug: Zofran (Ondansetron) 4 mg Route: IVP; Site: left antecubital; tw2 17:12 Follow up: Response: No adverse reaction; No change in condition tw2 16:32 Drug: Benadryl (diphenhydrAMINE) 12.5 mg Route: IVP; Site: left antecubital; tw2 17:12 Follow up: Response: No adverse reaction tw2 17:12 Drug: NS 0.9% 500 ml Route: IV; Rate: 125 ml/hr; Site: left antecubital; tw2 20:25 Follow up: IV Status: IV converted to saline lock; IV Intake: 400ml lp1 19:25 Drug: Reglan (metoCLOPramide) 10 mg Route: IVP; Site: left antecubital; lp1 20:25 Follow up: Response: Marked relief of symptoms lp1 19:28 Drug: morphine 2 mg Route: IVP; Infused Over: 4 mins; Site: left antecubital; lp1 20:25 Follow up: Response: Marked relief of symptoms lp1 Disposition Summary: 12/10/21 19:59 Discharge Ordered Location: Home cp Problem: an ongoing problem cp Symptoms: have improved cp Condition: Stable cp Diagnosis - Nausea with vomiting, unspecified cp Followup: cp - With: Private Physician - When: 2 - 3 days - Reason: Recheck today's complaints Discharge Instructions: - Discharge Summary Sheet cp - Nausea and Vomiting, Adult cp Forms: - Medication Reconciliation Form cp - Thank You Letter cp - Antibiotic Education cp - Prescription Opioid Use cp Prescriptions: - promethazine 25 mg Rectal suppository - insert 1 suppository by RECTAL route every 6 hours; 20 suppository; Refills: 0, cp Product Selection Permitted - Protonix 40 mg Oral Tablet - take 1 tablet by ORAL route once daily; 30 tablet; Refills: 0, Product cp Selection Permitted - promethazine 25 mg Oral Tablet - take 1 tablet by ORAL route every 6 hours As needed; 20 tablet; Refills: 0, cp Product Selection Permitted Signatures: Dispatcher [employer] Aisha Garnica, RN RN lp1 Jigar Weiss PA PA cp Wise, Tara RN RN tw2 Ruth Sierra RN RN ld1
--- NOTE | 2021-12-10 19:59 | ER ---
Nurse's Notes [facility] Name: Alejandrina Russo Age: 66 yrs Sex: Female : 1955 Arrival Date: 12/10/2021 Time: 15:40 Bed 8 Private MD: Diagnosis: Nausea with vomiting, unspecified Presentation: 12/10 15:50 Chief complaint: Patient states: Vomiting - pt reports this is "cyclic vomiting". ld1 Coronavirus screen: At this time, the client does not indicate any symptoms associated with coronavirus-19. Ebola Screen: No symptoms or risks identified at this time. Initial Sepsis Screen: Does the patient meet any 2 criteria? No. Patient's initial sepsis screen is negative. Does the patient have a suspected source of infection? No. Patient's initial sepsis screen is negative. Risk Assessment: Do you want to hurt yourself or someone else? Patient reports no desire to harm self or others. Onset of symptoms was December 10, 2021. 15:50 Method Of Arrival: Wheelchair ld1 15:50 Acuity: HE 3 ld1 Triage Assessment: 15:49 General: Appears in no apparent distress. uncomfortable, Behavior is calm, cooperative, ld1 appropriate for age. Pain: Denies pain. EENT: No signs and/or symptoms were reported regarding the EENT system. Neuro: Level of Consciousness is awake, alert, obeys commands, Oriented to person, place, time, situation. Cardiovascular: Capillary refill < 3 seconds Patient's skin is warm and dry. Respiratory: Airway is patent Respiratory effort is even, unlabored. GI: Abdomen is flat, non-distended, Reports nausea. : No signs and/or symptoms were reported regarding the genitourinary system. Derm: No signs and/or symptoms reported regarding the dermatologic system. Musculoskeletal: No signs and/or symptoms reported regarding the musculoskeletal system. Historical: - Allergies: 15:49 Ibuprofen; ld1 15:49 Tylenol-Codeine #3; ld1 - PMHx: 15:49 None; ld1 - PSHx: 15:49 abdomen; R mastectomy; Spleenectomy; ld1 - Immunization history:: Adult Immunizations up to date, Client reports receiving the 2nd dose of the Covid vaccine. - Social history:: Smoking status: Reported history of juuling and/or vaping. Patient/guardian denies using alcohol. Screenin:02 Abuse screen: Denies threats or abuse. Denies injuries from another. Nutritional ph screening: No deficits noted. Tuberculosis screening: No symptoms or risk factors identified. Fall Risk None identified. Assessment: 16:45 General: Appears uncomfortable, slender, Behavior is cooperative, anxious, fussy. Pain: tw2 Complains of pain in abdomen. Neuro: Level of Consciousness is awake, alert, obeys commands, Oriented to person, place, time, situation. Cardiovascular: Patient's skin is warm and dry. Respiratory: Airway is patent Respiratory effort is even, unlabored, Respiratory pattern is regular, symmetrical. GI: Reports lower abdominal pain, upper abdominal pain, cramping, nausea, dry heaving. : No signs and/or symptoms were reported regarding the genitourinary system. Derm: Skin is thin, Skin is dry, Skin temperature is warm. Musculoskeletal: Range of motion: intact in all extremities. 17:14 Reassessment: No changes from previously documented assessment. Patient and/or family tw2 updated on plan of care and expected duration. Pain level reassessed. Patient is alert, oriented x 3, equal unlabored respirations, skin warm/dry/pink. provider notified. Patient states symptoms have not improved. 17:58 Reassessment: Patient appears in no apparent distress at this time. Patient and/or tw2 family updated on plan of care and expected duration. Pain level reassessed. Patient is alert, oriented x 3, equal unlabored respirations, skin warm/dry/pink. Patient states feeling better. 19:15 Reassessment: Patient appears restless in room, states nausea returned, "I feel like a lp1 migraine is starting"; Patient appears anxious; Provider notified. 20:24 Reassessment: Patient appears in no apparent distress at this time. Patient is alert, lp1 oriented x 3, equal unlabored respirations, skin warm/dry/pink. Patient reports significant improvement in nausea; states readiness for discharge, daughter at bedside Patient states feeling better. Patient states symptoms have improved. Vital Signs: 15:49 BP 175 / 105; Pulse 91; Resp 18; Temp 98.6(O); Pulse Ox 96% on R/A; Weight 49.9 kg; ld1 Height 5 ft. 7 in. (170.18 cm); Pain 0/10; 16:50 BP 161 / 88; Pulse 66; Resp 17; Pulse Ox 99% on R/A; tw2 17:58 BP 147 / 96; Pulse 72; Resp 17; Pulse Ox 98% on R/A; tw2 18:16 BP 147 / 96; Pulse 84; Resp 17; Pulse Ox 99% on R/A; tw2 19:15 BP 149 / 104; Pulse 82; Resp 18; Pulse Ox 98% on R/A; Pain 6/10; lp1 20:11 BP 148 / 80; Pulse 79; Resp 18; Pulse Ox 97% on R/A; lp1 15:49 Body Mass Index 17.23 (49.90 kg, 170.18 cm) ld1 ED Course: 15:40 Patient arrived in ED. as 15:51 Triage completed. ld1 15:51 Arm band placed on right wrist. ld1 15:52 Jigar Weiss PA is PHCP. cp 15:52 Josh Coppola MD is Attending Physician. cp 16:02 Ai Arellano, MITESH is Primary Nurse. ph 16:03 Patient has correct armband on for positive identification. Bed in low position. Call ph light in reach. Side rails up X 1. Pulse ox on. NIBP on. 16:27 XRAY Chest (1 view) In Process Unspecified. EDMS 16:30 Inserted saline lock: 20 gauge in left antecubital area, using aseptic technique. Blood tw2 collected. 18:31 Urine Microscopic Only Sent. tw2 19:00 CT Abd/Pelvis - IV Contrast Only In Process Unspecified. EDMS 19:09 Primary Nurse role handed off by Ai Arellano, MITESH as6 19:09 Mic Alston, MITESH is Primary Nurse. as6 20:25 No provider procedures requiring assistance completed. IV discontinued, No lp1 redness/swelling at site. Pressure dressing applied. Administered Medications: 16:28 Drug: Bentyl (dicyclomine) 20 mg Route: IM; Site: left deltoid; tw2 17:12 Follow up: Response: No adverse reaction; No change in condition; No change in tw2 condition, provider notified. 16:30 Drug: ProTONIX (pantoprazole) 40 mg Route: IVP; Site: left antecubital; tw2 16:46 Follow up: Response: No adverse reaction tw2 16:30 Drug: NS 0.9% 500 ml Route: IV; Rate: bolus; Site: left antecubital; tw2 16:32 Drug: Zofran (Ondansetron) 4 mg Route: IVP; Site: left antecubital; tw2 17:12 Follow up: Response: No adverse reaction; No change in condition tw2 16:32 Drug: Benadryl (diphenhydrAMINE) 12.5 mg Route: IVP; Site: left antecubital; tw2 17:12 Follow up: Response: No adverse reaction tw2 17:12 Drug: NS 0.9% 500 ml Route: IV; Rate: 125 ml/hr; Site: left antecubital; tw2 20:25 Follow up: IV Status: IV converted to saline lock; IV Intake: 400ml lp1 19:25 Drug: Reglan (metoCLOPramide) 10 mg Route: IVP; Site: left antecubital; lp1 20:25 Follow up: Response: Marked relief of symptoms lp1 19:28 Drug: morphine 2 mg Route: IVP; Infused Over: 4 mins; Site: left antecubital; lp1 20:25 Follow up: Response: Marked relief of symptoms lp1 Medication: 16:03 VIS not applicable for this client. ph Intake: 20:25 IV: 400ml; Total: 400ml. lp1 Outcome: 19:59 Discharge ordered by MD. cp 20:25 Discharged to home via wheelchair, with family. lp1 20:25 Condition: good 20:25 Discharge instructions given to patient, family, Instructed on discharge instructions, follow up and referral plans. medication usage, Demonstrated understanding of instructions, follow-up care, medications, Prescriptions given X 3. 20:26 Patient left the ED. lp1 Signatures: Dispatcher [employer] EDMS Autumn Lei Laura, RN RN lp1 Ai Arellano RN RN ph Page, Corey, PA PA cp Mary Jo Cheek RN RN tw2 Ruth Sierra RN RN ld1 Mic Alston RN RN as6 Corrections: (The following items were deleted from the chart) 15:51 15:50 Acuity: HE 4 ld1 ld1
[2021-12-10 21:19] VITALS: TEMP 98.6
[2021-12-10 21:28] VITALS: BP 148/80; O2SAT 97
== END 2021-12-10 20:26 | disposition home or self-care (01) ==
LOC: ER 15:36
DX: R11.2 Nausea with vomiting, unspecified (principal); R53.1 Weakness; R10.9 Unspecified abdominal pain; Z88.5 Allergy status to narcotic agent; Z88.6 Allergy status to analgesic agent
CPT/HCPCS: 96361; 85025; 36415; 83690; 80053; 74177; 71045; 96375; 96372; 96374; 99284; Q9967; J2765; J0500; J1200; C9113; J2270; J7030; J2405; 81003; 81015

== ENCOUNTER 2022-03-17 10:13 | Emergency (ER) | payer OTHER ==
--- OUTSIDE RECORDS SUMMARY | 2022-03-17 10:20 | XMS REPORT | Continuity of Care Document ---
:1955 Author Organization [facility] t Address [address] [place] [address] Care Team Providers Name Role Phone ELLIE VASQUEZ Primary Care Physician Unavailable ARIEL HOBSON Attending Clinician Unavailable Ariel Hobson MD Attending Clinician Doctor Unassigned, [place] Attending Clinician Unavailable Nilda Attending Clinician Unavailable TAMMY BOWEN Attending Clinician Unavailable Anjel Rodriguez MD Attending Clinician Jimmy Franz MD Attending Clinician JIMMY FRANZ Attending Clinician Unavailable [facility] Attending Clinician Unavailable Jeannie Hussein MD Attending Clinician [phone] ARIEL HOBSON Admitting Clinician Unavailable Nilda Admitting Clinician Unavailable Jimmy Franz MD Admitting Clinician JIMMY FRANZ Admitting Clinician Unavailable Payers Payer Name Policy Type Policy Number Effective Date Expiration Date Tiff KENDRICK/MERRILL [id number] 2022 MEDICARE ADVANTAGE 00:00:00 Problems Condition Condition Condition Status Onset Resolution Last Treating Co mments Source Name Details Category Date Date Treatment Clinician Date Chest pain Chest pain Disease Active U nivers 5-26 ity of 00:00: [address] Hypertensi Hypertensi Disease Active U nivers on ity of [facility] Allergies, Adverse Reactions, Alerts Allergy Allergy Status Severity Reaction(s) Onset Inactive Treating Comm ents Source Name Type Date Date Clinician NO KNOWN Drug Active Univers ALLERGIE Class ity of S [facility] Social History Social Habit Start Date Stop Date Quantity Comments Source History of Smokes tobacco University of tobacco use daily [facility] Exposure to 2022-02-26 2022-03-08 Not sure [facility] SARS-CoV-2 00:00:00 15:19:00 [facility] (event) [place] Alcohol intake 2022-03-08 2022-03-08 Current drinker of Un iversity of 00:00:00 00:00:00 alcohol (finding) [facility] edical [place] Tobacco use and 2019-10-15 2019-10-15 Smokeless tobacco Un iversity of exposure 00:00:00 00:00:00 non-user [facility] Tobacco Comment 2019-10-15 2019-10-15 vaping, cigarettes U niversity of 00:00:00 00:00:00 20 years [facility] Sex Ass[birth year] At [birth year] Universit y of 00:00:00 00:00:00 [facility] Smoking Status Start Date Stop Date Source Smokes tobacco daily 2019-10-15 00:00:00 Univers ity of [facility] Medications Ordered Filled Start Stop Current Ordering Indication Dosage Frequency Signature Comments Components Source Medication Medication Date Date Medication? Clinician (SIG) Name Name iopamidol 2021-05- No [id number] 70mL 70 mL, Univers (ISOVUE 0-18 10-18 Intravenou ity o f 370-500 mL) 21:15: 21:15 s, ONCE, 1 [place] injection 00 :00 dose, On Medica l 70 mL e Branch 03/08/22 at 1615, Routine NaCl 0.9% 2021-05 Yes 1000mL at 999 Univ ers (NS) IV 0-18 mL/hr, ity of infusion 20:45: Intravenou [place]iano as 1,000 mL 00 s, Medical CONTINUOUS Branch , Starting on Mon03/08/22 at 1545, Until Discontinu ed, Routine ondansetron 2021-05- No 4mg 4 mg, Slow Univers (ZOFRAN 0-18 10-18 IV Push, ity of (PF)) 19:45: 20:18 ONCE, 1 [place] injection 4 00 :00 dose, On Medi wilbert mg Mon Branch 03/08/22 at 1445, KATT ondansetron 2021-05 Yes [id number] 8mg Take 1 Univers 8 mg 0-18 tablet by ity of disintegrat 00:00: mouth [place] ing tablet 00 every 8 Medica l (eight) Branch hours as needed for Nausea and Vomiting (N/V). acetaminoph 2020-0 Yes 650mg 650 mg, Un [place] en 10-15 Oral, ity of (TYLENOL) 21:14: Q4HPRN, [place] tablet 650 18 Starting Medic al mg Mon [place] 10/16/19 at 1614, Until Discontinu ed, Routine, Pain (scale 1-3) lisinopril 2020-0 Yes 20mg 20 mg, Unive rs (PRINIVIL,Z 10-15 Oral, ity of ESTRIL) 14:00: DAILY, [place] tablet 20 00 First dose Medi wilbert mg on Mon Branch 10/16/19 at 0900, Until Discontinu ed enoxaparin 2020-0 Yes 40mg 40 mg, Unive rs (LOVENOX) 10-15 Subcutaneo ity of injection 14:00: [place], [place]ILY, [place] 40 [place] 00 First dose Medical on Mon Branch 10/16/19 at 0900, Until Discontinu ed, Routine docusate 2020-0 Yes 100mg 100 mg, Unive rs (COLACE) 10-15 Oral, BID, ity o f capsule 100 13:00: First dose [place] mg 00 on Mon Medical 10/16/19 at Branch 0800, Until Discontinu ed, Routine lactobacill 2020-0 Yes 1{tbl} 1 tablet, Univers us 10-15 Oral, BID, ity of acidophilus 04:45: First dose [place] (ACIDOPHILL 00 on Mon Medica l [place]) 10/15/19 at Branch million 2345, cell -100 Until mg captab 1 Discontinu tablet ed, Routine azithromyci 2020-0 2020- No 500mg 500 mg, U nivers n 10-15 0602 Oral, ity of (ZITHROMAX) 04:45: 13:59 DAILY, 7 [place] tablet 500 00 :00 doses, Medical mg First dose Branch on Mon10/15/19 at 2345, Last dose on Mon10/21/19 at 0900, KATT
Re ason for Anti-Infec tive: Documented Infection< br>Documen pippa Infection Site: Respirator y
Durat ion of Therapy: 7 days ALPRAZolam 2020-0 Yes .5mg 0.5 mg, Univ ers (XANAX) 5-27 Oral, ity of tablet 0.5 04:39: TIDPRN, [place] mg 28 Starting Medical [facility] Branch 10/15/19 at 2339, Until Discontinu ed, Routine, anxiety ondansetron 2020-0 Yes 4mg 4 mg, Slow Univers (ZOFRAN 5-27 IV Push, ity of (PF)) 01:19: Q6HPRN, [place] injection 4 36 Starting Medi wilbert mg [facility] 10/15/19 at 2019, Until Discontinu ed, Routine, Nausea and Vomiting (N/V) iohexol 2020-0 2020- No 77mL 77 mL, Univers (OMNIPAQUE 10-14 05-26 Intravenou it y of 350 BULK-75 23:30: 23:12 s, ONCE, 1 [place] mL) 00 :00 dose, [facility] Medical injection 10/15/19 at Bran ch 77 [...] 4-15 (1) ity of tablet 00:00: TABLET(S) 00 BY MOUTH Medical ONCE A Branch [...] by mouth ity of tablet 00:00: with [place] 00 evening Medical meal. Branch alendronate 2020-0 Yes TAKE ONE Un [place] 70 mg 3-03 (1) ity of tablet 00:00: TABLET(S) 00 BY MOUTH Medical ONCE A Branch WEEK. alendronate 2020-0 Yes 40mg Take 40 mg Univers 70 mg 3-03 by mouth ity of tablet 00:00: with [place] 00 evening Medical meal. Branch alendronate 2020-0 Yes 40mg Take 40 mg Univers 70 mg 3-03 by mouth ity of tablet 00:00: with [place] 00 evening Medical meal. Branch alendronate 2020-0 Yes 40mg Take 40 mg Univers 70 mg 3-03 by mouth ity of tablet 00:00: with [place] 00 evening Medical meal. Branch Vital Signs Vital Name Observation Time Observation Value Comments Source Systolic blood 2022-03-08 20:25:00 158 mm[Hg] Univer sity of pressure [facility] Diastolic blood 2022-03-08 20:25:00 109 mm[Hg] Unive rsity of pressure [facility] Heart rate 2022-03-08 20:25:00 85 /min [facility] Respiratory rate 2022-03-08 20:25:00 18 /min [facility] in 2022-03-08 20:25:00 99 /min University of Arterial blood by [facility] Pulse oximetry Branch Body temperature 2022-03-08 18:08:00 36.5 Vee Univ [facility] [place] [facility] Body weight 2022-03-08 18:08:00 53.524 kg [facility]i ty [facility] [place] [facility] BMI 2022-03-08 18:08:00 18.48 kg/m2 [facility]i ty [facility] [place] [facility] Systolic blood 2019-10-16 21:00:00 143 mm[Hg] Univer sity of pressure [place] [facility] Diastolic blood 2019-10-16 21:00:00 89 mm[Hg] Unive rsity of pressure [place] [facility] Heart rate 2019-10-16 21:00:00 88 /min [facility]i [facility] [place] [facility] Body temperature 2019-10-16 21:00:00 37.17 Vee Univ ersity [facility] [place] [facility] Respiratory rate 2019-10-16 21:00:00 22 /min Univ ersity [facility] [place] [facility] Oxygen saturation in 2019-10-16 21:00:00 93 /min University of Arterial blood by [facility] Pulse oximetry Branch Body height 2019-10-16 02:35:00 170.2 cm [facility] [place] [facility] Body weight 2019-10-16 02:35:00 53.524 kg [facility]i [facility] [place] [facility] BMI 2019-10-16 02:35:00 18.48 kg/m2 [facility] [place] [facility] Systolic blood 2019-10-16 21:00:00 143 mm[Hg] Univer sity of pressure [place] [facility] Diastolic blood 2019-10-16 21:00:00 89 mm[Hg] Unive rsity of pressure [place] [facility] Heart rate 2019-10-16 21:00:00 88 /min [facility]i [facility] [place] [facility] Body temperature 2019-10-16 21:00:00 37.17 Vee Univ ersity of [place] [facility] Respiratory rate 2019-10-16 21:00:00 22 /min Univ ersity [facility] [place] [facility] Oxygen saturation in 2019-10-16 21:00:00 93 /min University of Arterial blood by [facility] Pulse oximetry Branch Body height 2019-10-16 02:35:00 170.2 cm [facility] [place] [facility] Body weight 2019-10-16 02:35:00 53.524 kg Universi ty [facility] [place] [facility] BMI 2019-10-16 02:35:00 18.48 kg/m2 [facility] [place] [facility] Respiratory rate 2019-10-15 21:29:00 35 /min Univ ersity [facility] [place] [facility] Systolic blood 2019-10-15 21:13:00 116 mm[Hg] Univer sity of pressure [facility] Branch Diastolic blood 2019-10-15 21:13:00 82 mm[Hg] Unive rsity of pressure [facility] Branch Heart rate 2019-10-15 21:13:00 95 /min [facility]i [facility] [place] [facility] Body temperature 2019-10-15 21:13:00 37.22 Vee Univ ersity [facility] [place] [facility] Body height 2019-10-15 21:13:00 170.2 cm [facility] [place] [facility] Body weight 2019-10-15 21:13:00 51.71 kg [facility] [place] [facility] BMI 2019-10-15 21:13:00 17.85 kg/m2 Universi ty of [facility] Branch Oxygen saturation in 2019-10-15 21:13:00 96 /min University of Arterial blood by [facility] Pulse oximetry Branch Respiratory rate 2019-10-15 21:29:00 35 /min Univ ersity of [facility] Branch Systolic blood 2019-10-15 21:13:00 116 mm[Hg] Univer sity of pressure [facility] Branch Diastolic blood 2019-10-15 21:13:00 82 mm[Hg] Unive rsity of pressure [facility] Branch Heart rate 2019-10-15 21:13:00 95 /min Universi ty of [facility] Branch Body temperature 2019-10-15 21:13:00 37.22 Vee Univ ersity of [place] [facility] Body height 2019-10-15 21:13:00 170.2 cm [facility] [place] [facility] Body weight 2019-10-15 21:13:00 51.71 kg [facility] [place] [facility] BMI 2019-10-15 21:13:00 17.85 kg/m2 Universi ty of [facility] Branch Oxygen saturation in 2019-10-15 21:13:00 96 /min University of Arterial blood by [facility] wilbert Pulse oximetry Branch Procedures Procedure Date / Time Performing Clinician Source Performed CT ABDOMEN PELVIS W 2022-03-08 20:18:50 Ariel Hobson [facility] ity of [place] CONTRAST Medical Branch LIPASE 2022-03-08 18:18:00 Rajendra Vaughn [facility] COMP. METABOLIC PANEL 2022-03-08 18:18:00 Rajendra Vaughn [facility] ([id number]) [facility] CBC WITH DIFF 2022-03-08 18:18:00 Rajendra Vaughn [facility] URINALYSIS 2022-03-08 18:18:00 Rajendra Vaughn [facility] NOTICE OF PRIVACY 2022-03-08 18:05:56 Doctor Unassigned, No [facility] PRACTICES Name [facility] CONSENT/REFUSAL FOR 2022-03-08 18:03:08 [facility] AUTHORIZATION FOR 2019-11-04 05:01:00 Doctor Unassigned, No [facility] RELEASE OF PHI Name [facility] ECHO ROUTINE W/DOPPLER 2019-10-16 19:42:38 Jimmy Franz [facility] COLOR [facility] TROPONIN I 2019-10-16 13:17:00 Jimmy Franz [facility] CORTISOL AM 2019-10-16 11:13:00 Osei mariana [facility] BASIC METABOLIC PANEL 2019-10-16 11:13:00 Jimmy Franz [facility] (NA, K, CL, CO2, [facility] GLUCOSE, BUN, CREATININE, CA) CBC WITH DIFFERENTIAL 2019-10-16 11:13:[address] [facility] TROPONIN I 2019-10-16 07:05:00 Jimmy Franz [facility] PNEUMOCOCCAL ANTIGEN 2019-10-16 03:36:[address] [facility] URINALYSIS 2019-10-16 03:35:00 Osei mariana [facility] LEGIONELLA URINARY 2019-10-16 03:35:00 Jimmy Franz [facility] ANTIGEN TST [facility] RESPIRATORY PANEL BY PCR 2019-10-16 03:08:00 Jimmy Franz [facility] COVID-19 (PCR MOLECULAR 2019-10-16 03:08:00 Jimmy Franz [facility] TESTING) Medical Branch LACTATE DEHYDROGENASE 2019-10-16 03:05:00 Osei [facility] C-REACTIVE PROTEIN 2019-10-16 03:05:00 Osei [facility] TROPONIN I 2019-10-16 03:05:00 Osei [facility] PROCALCITONIN 2019-10-16 03:04:00 Osei [facility] AC VBG + LACTIC ACID 2019-10-16 02:59:[address] [facility] CT CHEST PULMONARY 2019-10-15 23:20:33 [facility] Branch N-TERMINAL PRO-BNP 2019-10-15 22:34:00 Michael [facility] CREATINE KINASE 2019-10-15 22:34:00 Osei [facility] FERRITIN SERUM 2019-10-15 22:34:00 Osei [facility] TROPONIN I 2019-10-15 22:34:00 [facility] 2019-10-15 22:34:00 Michael Anjel [facility] ([id number]) (ALB,T.PRO,BILI Medical Branch T,BU/BC,ALT,AST,ALK PHOS) BASIC METABOLIC PANEL 2019-10-15 22:34:00 Anjel Rodriguez [facility] (NA, K, CL, CO2, Medical Branch GLUCOSE, BUN, CREATININE, CA) LIPID PANEL 2019-10-15 22:34:00 Osei [facility] ([id number])(TOTAL Medical Branch CHOLESTEROL, TRIGLYCERIDES, HDL) PROTHROMBIN TIME / INR 2019-10-15 22:34:00 Michael Anjel [facility] D-DIMER 2019-10-15 22:34:00 Osei [facility] ACTIVATED PARTIAL 2019-10-15 22:34:00 Michael [facility] THRMPLAS NI [facility] COVID-19 (PCR MOLECULAR 2019-10-15 22:33:00 Anjel Rodriguez [facility] TESTING) Medical Branch SEDIMENTATION RATE 2019-10-15 22:33:[address] [facility] CBC WITH DIFFERENTIAL 2019-10-15 22:33:00 Anjel Rodriguez sity [facility] GLYCOSYLATED HEMOGLOBIN 2019-10-15 22:33:00 Jimmy Franz [facility] (A1C) [facility] EKG-12 LEAD 2019-10-15 22:09:35 Anjel Rodriguez [place] [facility] Encounters Start End Encounter Admission Attending Care Care Encounter Source Date/Time Date/Time Type Type Clinicians Facility Department ID 2022-03-08 2022-03-08 Emergency X [facility] [id number] Univers 13:16:00 16:33:00 ARIEL alston [facility] 2022-03-08 2022-03-08 Emergency [facility] [id number] Univers 13:16:00 16:33:00 Ariel MARIA [id number] ity [facility] 4.2.7.2.686 [facility] [id number] [facility] 084 Branch 2022-03-08 2022-03-08 Orders Doctor PUENTE [id number] Univers 00:00:00 00:00:00 Only Unassigned, DARREL [id number] ity of [place] [facility] [id number] [place] [address] [id number] [facility] 009 Branch 2020-06-24 2020-06-24 Outpatient Shani_T [facility] [id number] [facility] 11:48:00 11:48:00 [id number] Family Practic e 2020-05-06 2020-05-06 Outpatient GOGIA, MHBL MHBL 7500 MHBL 12:26:00 16:39:00 TAMMY 2019-11-04 2019-11-04 Orders Doctor PUENTE [id number] 00:00:00 00:00:00 Only UnassignedDARREL [id number] [place] [facility] 4.2.7.2.686 [id number] 2019-11-04 2019-11-04 Orders Doctor PUENTE [id number] Univers 00:00:00 00:00:00 Only Unassigned, DARREL [id number] [facility] 4.2.7.2.686 Sever[place] as [phone] [facility] 009 Branch 2019-10-15 2019-10-16 Emergency Anjel Rodriguez [facility] 1.2.840. [id number] 17:09:10 18:24:00 Ariel Hobson [id number] [place] 4.2.7.2.686 [place] [id number] [facility] 2019-10-15 2019-10-16 Outpatient X OSEI [facility] [id number] Univers 17:09:10 18:24:00 [facility] 2019-10-15 2019-10-16 Emergency Anjel Rodriguez [facility] 1.2.840. [id number] Univers 17:09:10 18:24:00 Ariel [place] [id number] ity of Jimmy Franz 4.2.7.2.686 [facility] [id number] [facility] 080 [place] 2019-10-15 2019-10-15 Urgent Pob1, Acute [facility] [id number] 16:00:05 16:20:[address] [facility] [id number] [place] 4.2.7.2.686 Professio [id number] nal [facility] [address] 2019-10-15 2019-10-15 Urgent Pob1, Acute Care [facility] 1. 2.840.114 [id number] Univers 16:00:05 16:20:05 Care [facility] 350.1.1 3.10 ity of [place] 4.2.7.2.686 [place] as Professio [id number] Dc dical [address] 2019-10-15 2019-10-15 Outpatient R [facility] [id number] Univers 15:40:00 15:40:00 ity [facility] Results Test Description Test Time Test Comments Results Result Comments Source CBC with Differential 2022-03-08 19:37:27 Test Item Value Reference Range Interpretation Comme nts WBC (test code = 6690-2) See_Comment [A utomated message] The system which ge nerated this result transmit pippa reference range: 4.30 - 1 1.10 10*3/?L. The reference r marguerite was not used to interpr et this result as normal/abnor mal. RBC (test code = 789-8) See_Comment [Au tomated message] The system which ge nerated this result transmit pippa reference range: 3.93 - 5 .25 10*6/?L. The reference r marguerite was not used to interpr et this result as normal/abnor mal. HGB (test code = 718-7) 15.3 g/dL 11.6-15 H HCT (test code = 4544-3) 43.0 % 35.7-45.2 MCV (test code = 787-2) 84.3 fL 80.6-95.5 MCH (test code = 785-6) 30.0 pg 25.9-32.8 MCHC (test code = 786-4) 35.6 g/dL 31.6-35.1 H RDW-SD (test code = 55302-2) 43.1 fL 39-49.9 RDW-CV (test code = 788-0) 14.0 % 12-15.5 PLT (test code = 777-3) See_Comment [Au tomated message] The system which ge nerated this result transmit pippa reference range: 166 - 35 8 10*3/?L. The reference range was not used to interpret th is result as normal/abnormal . MPV (test code = 51717-1) 11.3 fL 9.5-12.9 NRBC/100 WBC (test code = See_Comment [ Automated message] The 4713484308) system which ge nerated this result transmit pippa reference range: 0.0 - 10 .0 /100 WBCs. The reference r marguerite was not used to interpr et this result as normal/abnor mal. NRBC x10^3 (test code = See_Comment [Au tomated message] The 6210606498) system which ge nerated this result transmit pippa reference range: 10*3/?L. The reference range was not u sed to interpret this result as normal/abnormal . GRAN MAT (NEUT) % (test code 55.5 % = 770-8) IMM GRAN % (test code = 0.50 % 7559780206) LYMPH % (test code = 736-9) 27.9 % MONO % (test code = 5905-5) 15.4 % EOS % (test code = 713-8) 0.2 % BASO % (test code = 706-2) 0.5 % GRAN MAT x10^3(ANC) (test 6.14 10*3/uL 1.88-7.09 code = 1106401945) IMM GRAN x10^3 (test code = 0.05 10*3/uL 0-0.06 6054934695) LYMPH x10^3 (test code = 3.08 10*3/uL 1.32-3.29 731-0) MONO x10^3 (test code = 1.70 10*3/uL 0.33-0.92 H 742-7) EOS x10^3 (test code = 0.03-0.39 L 711-2) BASO x10^3 (test code = 0.06 10*3/uL 0.01-0.07 704-7) HYPERSEG NEUTS (test code = Present See_Comment A [Automated message] The 765-8) system which [employer] nerated this result transmit pippa reference range: (none). The reference range was not u sed to interpret this result as normal/abnormal . LG GRAN LYMPHS (test code = Rare Rare 8899167090) REACT LYMPHS (test code = Rare 1297591957) GIANT PLATELETS (test code = Present See_Comment A [Automated message] The 5908-9) system which [employer] nerated this result transmit pippa reference range: (none). The reference range was not u sed to interpret this result as normal/abnormal . Lab Interpretation (test Abnormal code = 94133-2) [facility] Met[facility] [id number] 18:49:36 Test Item Value Reference Range Interpretation Comments NA (test code = 128 mmol/L 135-145 L 4792878350) K (test code = 4.3 mmol/L 3.5-5 0789197704) CL (test code = 92 mmol/L 98-108 L 7665524572) CO2 TOTAL (test code = 23 mmol/L 23-31 9087462848) AGAP (test code = 2-16 6862225023) BUN (test code = 22 mg/dL 7-23 2418401646) GLUCOSE (test code = 104 mg/dL 70-110 5994276456) CREATININE (test code = 1.07 mg/dL 0.5-1.04 H 1899181075) TOTAL BILI (test code = 1.9 mg/dL 0.1-1.1 H 3442608988) CALCIUM (test code = 9.1 mg/dL 8.6-10.6 9680207722) T PROTEIN (test code = 7.5 g/dL 6.3-8.2 3214433615) ALBUMIN (test code = 4.8 g/dL 3.5-5 7195762071) ALK PHOS (test code = 81 U/L 34-122 5252205693) ALTv (test code = 23 U/L 5-35 1742-6) AST(SGOT) (test code = 32 U/L 13-40 8472867431) eGFR (test code = mL/min/1.73m2 0155848833) CHERYL (test code = CHERYL) Association of Glomerular Filtration Rate (GFR) and Staging of Kidney Disease* + --+ --+ ------+| GFR (mL/min/1.73 m2) ?| With Kidney Damage ?| ?Without Kidney Damage+ --------+ --------+ +| ?>90 ?| ?Stage one ?| ? Normal ?+ ---+ ---+ -------+| ?60-89 ?| ?Stage two ?| ? Decreased GFR ? + --+ --+ ------+| ?30-59 ?| ?Stage three ?| ? Stage three ? + --+ --+ ------+| ?15-29 ?| ?Stage four ? | ? Stage four ?+ ---+ ---+ -------+| ?<15 (or dialysis) ? ?| ?Stage five ? | ? Stage five ?+ ---+ ---+ -------+ *Each stage assumes the associated GFR level [...] or urine or abnormalities in imaging tests). Lab Interpretation Abnormal (test code = 70846-7) [facility] Center[facility], [id number] 18:49:15 Test Item Value Reference Range Interpretation Comments LIPASE (test code = 8821655883) 162 U/L 0-220 Lab Interpretation (test code = Normal 61438-1) [facility] CenterRESPIRATORY PANEL BY [id number] 18:21:00 Test Item Value Reference Range Interpretation Comments Adenovirus (test code = Negative Negative 04352-0) Coronavirus HKU1 (test Negative Negative code = 35166-0) Coronavirus NL63 (test Negative Negative code = 74441-4) Coronavirus 229E (test Negative Negative code = 20403-4) Coronavirus OC43 (test Negative Negative code = 68342-0) Human Metapneumovirus Negative Negative (test code = 06255-1) Human Negative Negative Rhinovirus/Enterovirus (test code = 11687-1) Influenza A (test code = Negative Negative 68775-3) Influenza B (test code = Negative Negative 85337-5) Parainfluenza Virus 1 Negative Negative (test code = 33125-1) Parainfluenza Virus 2 Negative Negative (test code = 63878-6) Parainfluenza Virus 3 Negative Negative (test code = 64245-9) Parainfluenza Virus 4 Negative Negative (test code = 77529-6) Respiratory Syncytial Negative Negative Virus (test code = 12137-8) Bordetella parapertussis Negative Negative (test code = 38233-3) Bordetella pertussis Negative Negative (test code = 92668-3) Chlamydia pneumoniae Negative Negative (test code = 84483-5) Mycoplasma pneumoniae Negative Negative (test code = 95536-0) CHERYL (test code = CHERYL) Negative:A negative result does not rule-out infection. ?This assay does not test for all potential infectious agents. ? Positive:A positive test result does not necessarily indicate the presence of viable organism. ? Lab Interpretation (test Normal code = 23111-2) [facility] CenterCORTISOL [id number] 16:46:00 Test Item Value Reference Range Interpretation Comments MENDOZA AM (test code = 12.9 ug/dL 4.5-23 0495150541) CHERYL (test code = CHERYL) Biotin has been reported to cause a positive bias, interpret results relative to patient's use of biotin. Lab Interpretation (test Normal code = 70177-8) [facility] CenterTROPONIN [id number] 16:08:00 Test Item Value Reference Range Interpretation Comments TROPONIN I (test <0.012 See_Comment [Automated code = 5305397147) message] The system which generated this result [...] ? Lab Interpretation Normal (test code = 25141-1) [facility] CenterC-REACTIVE [id number] 15:42:00 Test Item Value Reference Range Interpretation Comments CRP (test code = 7589052641) 22.8 mg/dL <0.8 H Lab Interpretation (test code = Abnormal 96967-1) [facility] CenterLEGIONELLA URINARY ANTIGEN [id number] 15:00:00 Test Item Value Reference Range Interpretation Comments Legionella Urinary Negative Negative Antigen (test code = 6287375825) CHERYL (test code = CHERYL) Negative for [...] test. Lab Interpretation (test Normal code = 84960-0) [facility] CenterPNEUMOCOCCAL [id number] 15:00:00 Test Item Value Reference Range Interpretation Comments S. pneumoniae antigen (test code = Negative Negative 4041300575) Lab Interpretation (test code = Normal 12536-0) [facility] CenterPROCALCITONIN2020-05-27 14:06:00 Test Item Value Reference Range Interpretation Comments Procalcitonin (test 0.04 ng/mL <0.07 code = 6302422817) CHERYL (test code = CHERYL) INTERPRETATION OF [...] lung abscess/empyema. For further information please refer to:[email or web address] Lab Interpretation Normal (test code = 90330-7) [facility] CenterBASA[facility] METABOLIC PANEL (NA, K, CL, CO2, GLUCOSE, BUN, CREATININE, CA)2019-10-16 13:18:00 Test Item Value Reference Range Interpretation Comments NA (test code = 138 mmol/L 135-145 3603476385) K (test code = 3.8 mmol/L 3.5-5 6763382500) CL (test code = 103 mmol/L 98-108 3093595780) CO2 TOTAL (test code = 26 mmol/L 23-31 5570290654) AGAP (test code = 2-16 6490927971) BUN (test code = 11 mg/dL 7-23 5910536999) GLUCOSE (test code = 82 mg/dL 70-110 8730410527) CREATININE (test code 0.59 mg/dL 0.5-1.04 = 1755933584) CALCIUM (test code = 9.1 mg/dL 8.6-10.6 6973647039) eGFR Calculation mL/min/1.73m2 (Non-) (test code = 6900180414) eGFR Calculation mL/min/1.73m2 () (test code = 9924182617) CHERYL (test code = CHERYL) Association of [...] or urine or abnormalities in imaging tests). [facility] WITH [id number] 13:11:00 Test Item Value Reference Range Interpretation [...] RDW-SD (test code = 47.8 fL 39-49.9 22459-2) RDW-CV (test code = 14.1 % 12-15.5 788-0) PLT (test code = See_Comment [Automated 777-3) message] The sy stem which generated this result transmitted reference range : 166 - 358 10*3/ ?L. The reference r marguerite was not used to interpret this result as normal/abnormal . MPV (test code = 12.2 fL 9.5-12.9 27031-7) NRBC/100 WBC (test See_Comment [Automat ed code = 1196725673) message] The system which generated this result transmitted reference range : 0.0 - 10.0 /100 WBCs. The refer ence range was not u sed to interpret th is result as normal/abnormal . NRBC x10^3 (test code <0.01 See_Comment [Auto mated = 1239762944) message] The s ystem which generated this result transmitted reference range : 10*3/?L. The reference range was not used to interpret this result as normal/abnormal . GRAN MAT (NEUT) % 69.0 % (test code = 770-8) IMM GRAN % (test code 0.40 % = 5913263886) LYMPH % (test code = 17.0 % 736-9) MONO % (test code = 9.7 % 5905-5) EOS % (test code = 2.8 % 713-8) BASO % (test code = 1.1 % 706-2) GRAN MAT x10^3(ANC) 7.68 10*3/uL 1.88-7.09 H (test code = 8631375652) IMM GRAN x10^3 (test 0.05 10*3/uL 0-0.06 code = 4496407187) LYMPH x10^3 (test code 1.89 10*3/uL 1.32-3.29 = 731-0) MONO x10^3 (test code 1.08 10*3/uL 0.33-0.92 H = 742-7) EOS x10^3 (test code = 0.31 10*3/uL 0.03-0.39 711-2) BASO x10^3 (test code 0.12 10*3/uL 0.01-0.07 H = 704-7) Lab Interpretation Abnormal (test code = 69440-8) [facility] CenterCHERYL [id number] 08:25:00 Test Item Value Reference Range Interpretation Comments TROPONIN I (test <0.012 See_Comment [Automated code = 8350034879) message] The system which generated this result [...] ? Lab Interpretation Normal (test code = 85180-0) [facility] CenterTROPONIN [id number] 05:12:00 Test Item Value Reference Range Interpretation Comments TROPONIN I (test <0.012 See_Comment [Automated code = 2730317889) message] The system which generated this result [...] ? Lab Interpretation Normal (test code = 10964-5) [facility] CenterURINALYSIS2020-05-27 05:06:00 Test Item Value Reference Range Interpretation Comments APPEARANCE (test code = Clear Clear 0214197012) COLOR (test code = Yellow Yellow 3860794215) PH (test code = 4.8-8.0 5658939455) SP GRAVITY (test code = 1.003-1.030 H 1325122174) GLU U QUAL (test code = Normal Normal 1727170364) BLOOD (test code = Negative Negative 1503157379) KETONES (test code = Negative Negative 9892190505) PROTEIN (test code = Negative Negative 2887-8) UROBILIN (test code = Normal Normal 2444804521) BILIRUBIN (test code = Negative Negative 1962562703) NITRITE (test code = Negative Negative 3884238464) LEUK DANIEL (test code = Negative Negative 6022836723) RBC/HPF (test code = <1 See_Comment [Autom ated message] 3149216429) The system [employer] generated this result transmitted ref erence range: 0 - 3 HP F. The reference range was not used to int erpret this result as normal/abnormal . WBC/HPF (test code = See_Comment [Autom ated message] 1675890188) The system [employer] generated this result transmitted ref erence range: 0 - 5 HP F. The reference range was not used to int erpret this result as normal/abnormal . BACTERIA (test code = Negative Negative 2675433134) SQ EPITH (test code = HPF 7009879816) Lab Interpretation (test Abnormal code = 09395-3) [facility] CenterLACTATE [id number] 04:59:00 Test Item Value Reference Range Interpretation Comments LDH (test code = 5329769705) 1050 U/L 300-600 H Lab Interpretation (test code = Abnormal 25976-2) [facility] CenterCORONAVIRUS COVID-19 [id number] 04:54:00 Test Item Value Reference Range Interpretation Comments SARS-CoV-2 Rapid ID NOW Not Detected Not Detected (test code = 45536-9) CHERYL (test code = CHERYL) ID NOW COVID-19 Assay is an isothermal nucleic acid amplification test intended for the qualitative detection of nucleic acid from SARS-CoV-2 viral RNA in nasopharyngeal (CHIEF II DISPATCHER) specimens. It is used under Emergency Use [...] indicated. Lab Interpretation Normal (test code = 25341-2) [facility] CenterAC VBG + LACTIC [id number] 03:05:00 Test Item Value Reference Range Interpretation Comments PH (test code = 7.32-7.42 2078768298) PCO2 ELAINA (test code See_Comment [[employer] pippa message] = 5606363458) The system [employer] generated this result transmitted ref erence range: 41 - 51 mmHg. The reference r marguerite was not used to int erpret this result as normal/abnormal . PO2 ELAINA (test code See_Comment [Automat ed message] = 5999770782) The system [employer] generated this result transmitted ref erence range: 25 - 40 mmHg. The reference r marguerite was not used to int erpret this result as normal/abnormal . HCO3 ELAINA (test code See_Comment [[employer] pippa message] = 2466897306) The system [employer] generated this result transmitted ref erence range: 24 - 28 mEq/L. The reference r marguerite was not used to int erpret this result as normal/abnormal . AC VBE(BEAKER) mEq/L (test code = 5229299137) LACTIC ACID (test 1.11 mmol/L 0.5-2.2 code = 7737326016) [facility] CenterCT CHEST PULMONARY [id number] 02:10:58 No acute pulmonary embolism. Multifocal bilateral groundglass opacities are concerning for atypicalpneumonia, including COVID 19 pneumonia. Another consideration iscryptogenic organizing pneumonia. Mediastinal lymphadenopathy, likely reactive. Indeterminate 3.4cm left adrenal mass. Nonemergent evaluation with CTadrenal mass protocol is recommended. Preliminary Report Dictated by Resident: Bryon Stein MD., have reviewed this study and agree with the abovereport.PROCEDURE: CTANGIO CHEST WITH CONTRAST - PE PROTOCOL CLINICAL INDICATION: 64 years Female Shortness of breath COMPARISON: ?None. TECHNIQUE: ?Helical CT was performed and reconstructed at 1.25 mm slicethickness fromlung apices to bases using 100 mL Omnipaque intravenouscontrast, without complication. ? Axial MIPs were generated and reviewed tofurther define anatomy and possible pathology. ? (DFOV = 40 cm) FINDINGS: PULMONARY ARTERIES: Enhancement is appropriate for evaluation. No acute pulmonary embolism isidenti fied. CHEST: Lower neck/thyroid: Low-density nodules identified in [...] ?Normal in diameter. Mild calcifiedatherosclerotic plaque in the arch. Heart and pericardium: No detectable coronary arterial [...] and chest wall: No acute fracture. Mild multileve lspondylotic changes of the thoracic spine with normal vertebral bodyheights. Moderate spondylotic changes of the thoracic spine T11-T12. Changes of right mastectomy are noted. A left breast implant ispresent. Other Lines/Tubes/Devices/Hardware: None Visualized upper abdomen: 3.4 [...] generated and reviewed tofurther define anatomy and possiblepathology. (DFOV = 40 cm)FINDINGS:PULMONARY ARTERIES: Enhancement is appropriate for evaluation. No a cute pulmonary embolism isidentified.CHEST:Lower neck/thyroid: Low-density nodules identified in theright thyroidlobe measuring up to 1.5 cm; it contains punctate internal calcifications.No supra clavicular adenopathy identified.Lungs: Multifocal, mostly peripheral but peribronchovascular groundglassopacitiesare noted in the bilateral lower, left upper and right middle lobe. Themost extensive groundglass opacities and interlobular septal thickening arenoted in the right upper lobe.Central airway: Mild but irregular dilation of the distal trachea andmainstem bronchi noted. There is more overt mildto moderate bronchiectasisinvolving the lobar and segmental branches.Pleura: No pleural effusion, thickening or pneumothorax.Thoracic aorta and great vessels: Normal in diameter. Mild calcifiedatherosclerotic plaque in the arch.Heart and pericardium: No detectable coronary arterial calcification.Unrema rkable cardiac morphology and pericardium.Pulmonary arteries: Well-opacified without filling defect.Normal caliber.Lymph nodes: Enlarged subaortic/AP window lymph node is seen, measuring 1.1cm. A 1 cmleft lower paratracheal lymph node is seen. 1.2 cm subcarinallymph node is present.Mediastinum: The esophagus is mildly patulous but without mural thickening.Thoracic spine and chest wall: No acute fracture. Mild multilevelspondylotic changes of the thoracic spine with normal vertebral bodyheights. Moderate spondylotic changes of the thoracic spine T11-T12.Changes of right mastectomy are noted. A left breast implant is present. Other Lines/Tubes/Devices/Hardware: NoneVisualized upper abdomen: 3.4 cmleft adrenal indeterminatehyperattenuating lesion is seen. IMPRESSIONNo acute pulmonary embolism.Multifocal bilateral groundglass opacities are concerning for atypicalpneumonia, including COVID 19 pneumonia. Another consideration iscryptogenic organizing pneumonia.Mediastinal lymphadenopathy, likely reactive.Indeterminate 3.4cm left adrenal mass. Nonemergent evaluation with CTadrenal mass protocol is recommended.Preliminary Report Dictated by Resident: Bryon Knowles MD., have reviewed this study and agree with the abovereport.[facility] CenterFERRITIN [id number] 02:10:00 Test Item Value Reference Range Interpretation Comments FERRITIN (test code = 94.2 ng/mL 1959974806) CHERYL (test code = CHERYL) Biotin has been reported to cause a negative bias, interpret results relative to patient's use of biotin. Lab Interpretation (test Normal code = 94457-3) [facility] CenterD-[id number] 01:54:00 Test Item Value Reference Interpretation Comments Range D-DIMER (test code = See_Comment H [Autom ated 9848568539) message] The system which generated this result [...] diagnosis. Lab Interpretation Abnormal (test code = 89059-2) [facility] CenterSEDIMENTATION [id number] 01:51:00 Test Item Value Reference Range Interpretation Comments ESR (test code = See_Comment H [Automated message] 0210038843) The system [employer] generated this result transmitted ref erence range: 0 - 20 m m/HR. The reference r marguerite was not used to interpret this result as normal/abnor mal. Lab Interpretation (test Abnormal code = 20989-0) [facility] CenterGLYCOSYLATED HEMOGLOBIN (A1C)2019-10-16 01:48:00 Test Item Value Reference [...] Indicated Lab Interpretation Normal (test code = 42238-9) [facility] CenterCREATINE [id number] 01:36:00 Test Item Value Reference Range Interpretation Comments CK (test code = 6165382599) 39 U/L 33-194 Lab Interpretation (test code = Normal 89282-4) [facility] CenterLIPID PANEL (58471)(TOTAL CHOLESTEROL, TRIGLYCERIDES, HDL)2019-10-16 01:34:00 Test Item Value Reference Range Interpretation Comments CHOL (test code = 119 mg/dL 120-200 L 5871718770) HDL (test code = 26 mg/dL >50 L 5098809904) HDLC RATIO (test code = See_Comment H [Au tomated message] 1272096363) The system [employer] generated this result transmit pippa reference range : <=4.5. The refe rence range was not u sed to interpret th is result as normal/abnormal . TRIG (test code = 87 mg/dL 30-170 9967198080) LDL CHOL (test code = 76 mg/dL See_Comment [Auto mated message] 26188-8) The system [employer] generated this result transmit pippa reference range : <=160. The refe rence range was not u sed to interpret th is result as normal/abnormal . VLDL (test code = 17 mg/dL 5-60 9037224483) Lab Interpretation (test Abnormal code = 19289-8) [facility] CenterTroponin [id number] 23:07:00 Test Item Value Reference Range Interpretation Comments TROPONIN I (test <0.012 See_Comment [Automated code = 5797849053) message] The system which generated this result [...] ? Lab Interpretation Normal (test code = 01561-8) [facility] CenterN-TERMINAL [id number] 23:04:00 Test Item Value Reference Range Interpretation Comments NT-proBNP (test code 556 pg/mL See_Comment H [Autom ated = 2996443246) message] The system which generated this result transmitted reference range : <=125. The reference range was not used to interpret this result as normal/abnormal . CHERYL (test code = CHERYL) Biotin has been reported to cause a negative bias, interpret results relative to patient's use of biotin. Lab Interpretation Abnormal (test code = 17101-2) [facility] CenterCORONAVIRUS COVID-19 [id number] 23:00:00 Test Item Value Reference Range Interpretation Comments SARS-CoV-2 Rapid ID NOW Not Detected Not Detected (test code = 26959-3) CHERYL (test code = CHERYL) ID NOW COVID-19 Assay is an isothermal nucleic acid amplification test intended for the qualitative detection of nucleic acid from SARS-CoV-2 viral RNA in nasopharyngeal (CHIEF II DISPATCHER) specimens. It is used under Emergency Use [...] indicated. Lab Interpretation Normal (test code = 57576-8) [facility] CenteraPTT2020-05-26 22:59:00 Test Item Value Reference Range Interpretation Comments APTT Patient (test See_Comment [Automat ed code = 3173-2) message] The system which generated this result transmitted reference range : 23 - 38 Seconds . The reference range was not used to interpr et this result as normal/abnormal . CHERYL (test code = CHERYL) The [facility] patient population mean normal value for aPTT is 30 seconds. Lab Interpretation Normal (test code = 17232-2) [facility] CenterProthrombin Time (PT) / [id number] 22:59:00 Test Item Value Reference Range Interpretation [...] tions. Lab Interpretation (test Normal code = 78850-9) [facility] CenterBasi Metabolic Panel (NA, K, CL, CO2, GLUCOSE, BUN, CREATININE, CA)2019-10-15 22:55:00 Test Item Value Reference Range Interpretation Comments NA (test code = 138 mmol/L 135-145 0808992787) K (test code = 3.6 mmol/L 3.5-5 7967649181) CL (test code = 100 mmol/L 98-108 5218637853) CO2 TOTAL (test code = 27 mmol/L 23-31 7163224632) AGAP (test code = 2-16 4621042673) BUN (test code = 11 mg/dL 7-23 3863191546) GLUCOSE (test code = 103 mg/dL 70-110 8289732005) CREATININE (test code 0.73 mg/dL 0.5-1.04 = 2675937846) CALCIUM (test code = 9.1 mg/dL 8.6-10.6 0731985147) eGFR Calculation mL/min/1.73m2 (Non-) (test code = 1637611920) eGFR Calculation mL/min/1.73m2 () (test code = 7011797222) CHERYL (test code = CHERYL) Association of [...] or urine or abnormalities in imaging tests). [facility] CenterHepatic Function Panel (ALB, T.PRO, BILI T, BU/BC, ALT, AST, ALK PHOS)2019-10-15 22:55:00 Test Item Value Reference Range Interpretation Comments TOTAL BILI (test code = 0995119203) 0.8 mg/dL 0.1-1.1 BILI UNCON (test code = 9002738507) 0.8 mg/dL 0.1-1.1 BILI CONJ (test code = 6230978280) 0.0 mg/dL 0-0.3 T PROTEIN (test code = 3529213107) 7.4 g/dL 6.3-8.2 ALBUMIN (test code = 3079041117) 4.0 g/dL 3.5-5 ALK PHOS (test code = 5184839757) 107 U/L 34-122 ALTv (test code = 1742-6) 24 U/L 5-35 AST(SGOT) (test code = 6055068546) 46 U/L 13-40 H Lab Interpretation (test code = Abnormal 93988-8) [facility] WITH [id number] 22:53:00 Test Item Value Reference Range Interpretation Comments WBC (test code = See_Comment H [Automated 9303-2) message] The sy stem which generated this result transmitted reference range : 4.30 - 11.10 10*3/?L. The reference range was not used to interpret this result as normal/abnormal . RBC (test code = See_Comment [Automated 929-8) message] The sy stem which generated this [...] RDW-SD (test code = 48.1 fL 39-49.9 70055-5) RDW-CV (test code = 14.3 % 12-15.5 788-0) PLT (test code = See_Comment [Automated 107-3) message] The sy stem which generated this result transmitted reference range : 166 - 358 10*3/ ?L. The reference r marguerite was not used to interpret this result as normal/abnormal . MPV (test code = 11.9 fL 9.5-12.9 90918-0) NRBC/100 WBC (test See_Comment [Automat ed code = 4362597399) message] The system which generated this result transmitted reference range : 0.0 - 10.0 /100 WBCs. The refer ence range was not u sed to interpret th is result as normal/abnormal . NRBC x10^3 (test code <0.01 See_Comment [Auto mated = 1903958848) message] The s ystem which generated this result transmitted reference range : 10*3/?L. The reference range was not used to interpret this result as normal/abnormal . GRAN MAT (NEUT) % 72.3 % (test code = 770-8) IMM GRAN % (test code 0.60 % = 4135980915) LYMPH % (test code = 16.0 % 736-9) MONO % (test code = 8.8 % 5905-5) EOS % (test code = 1.7 % 713-8) BASO % (test code = 0.6 % 706-2) GRAN MAT x10^3(ANC) 8.99 10*3/uL 1.88-7.09 H (test code = 3966895133) IMM GRAN x10^3 (test 0.07 10*3/uL 0-0.06 H code = 3371727840) LYMPH x10^3 (test code 1.99 10*3/uL 1.32-3.29 = 731-0) MONO x10^3 (test code 1.09 10*3/uL 0.33-0.92 H = 742-7) EOS x10^3 (test code = 0.21 10*3/uL 0.03-0.39 711-2) BASO x10^3 (test code 0.08 10*3/uL 0.01-0.07 H = 704-7) Lab Interpretation Abnormal (test code = 67372-6) [facility]
--- NOTE | 2022-03-17 11:33 | ER ---
Nurse's Notes [facility] Name: Alejandrina Russo Age: 67 yrs Sex: Female : 1955 Arrival Date: 03/17/2022 Time: 10:17 Bed 11 Private MD: Diagnosis: Sprain of ligaments of cervical spine, initial encounter;Torticollis Presentation: 03/17 10:37 Chief complaint: Patient states: PT reporting neck pain - denies injury. Woke up with a ld1 crick in neck 2 days ago - can't turn neck at all. Coronavirus screen: At this time, the client does not indicate any symptoms associated with coronavirus-19. Ebola Screen: No symptoms or risks identified at this time. Initial Sepsis Screen: Does the patient meet any 2 criteria? No. Patient's initial sepsis screen is negative. Does the patient have a suspected source of infection? No. Patient's initial sepsis screen is negative. Risk Assessment: Do you want to hurt yourself or someone else? Patient reports no desire to harm self or others. Onset of symptoms was March 17, 2022. 10:37 Method Of Arrival: Ambulatory ld1 10:37 Acuity: HE 4 ld1 Triage Assessment: 10:39 General: Appears in no apparent distress. uncomfortable, Behavior is cooperative, ld1 anxious. Pain: Complains of pain in neck Pain does not radiate. Pain currently is 9 out of 10 on a pain scale. Quality of pain is described as sharp, shooting, throbbing, Pain began gradually. EENT: No signs and/or symptoms were reported regarding the EENT system. Neuro: Level of Consciousness is awake, alert, obeys commands, Oriented to person, place, time, situation, Appropriate for age. Cardiovascular: Capillary refill < 3 seconds Patient's skin is warm and dry. Respiratory: Airway is patent Respiratory effort is even, unlabored. GI: Abdomen is flat, non-distended. : No signs and/or symptoms were reported regarding the genitourinary system. Derm: No signs and/or symptoms reported regarding the dermatologic system. Musculoskeletal: No signs and/or symptoms reported regarding the musculoskeletal system. Historical: - Allergies: 10:39 Ibuprofen; ld1 10:39 Tylenol-Codeine #3; ld1 - Home Meds: 10:39 Xanax 0.5 mg Oral tab 1 tab 3 times per day [Active]; ld1 - PMHx: 10:39 Hypertensive disorder; Diverticulitis; Anxiety; ld1 - PSHx: 10:39 abdomen; R mastectomy; Spleenectomy; ld1 - Immunization history:: Adult Immunizations up to date, Client reports receiving the 2nd dose of the Covid vaccine. - Social history:: Smoking status: Patient denies any tobacco usage or history of. Patient/guardian denies using alcohol. - Family history:: not pertinent. Screenin:15 Abuse screen: Denies threats or abuse. Denies injuries from another. Nutritional ph screening: No deficits noted. Tuberculosis screening: No symptoms or risk factors identified. Fall Risk None identified. Assessment: 12:14 General: Appears in no apparent distress. Behavior is calm, cooperative, appropriate iw for age. Neuro: Level of Consciousness is awake, alert, obeys commands, Oriented to person, place, time, situation. Vital Signs: 10:37 BP 130 / 90; Pulse 108; Resp 18; Temp 97.5(TE); Pulse Ox 95% on R/A; Weight 47.17 kg; ld1 Height 5 ft. 6 in. (167.64 cm); Pain 10/10; 10:37 Body Mass Index 16.79 (47.17 kg, 167.64 cm) ld1 ED Course: 10:17 Patient arrived in ED. rg4 10:39 Triage completed. ld1 10:39 Arm band placed on right wrist. ld1 10:49 Jigar Cook MD is Attending Physician. celeste 10:51 Ai Arellano RN is Primary Nurse. ph 11:23 CT C Spine In Process Unspecified. EDMS 11:33 Hayden Alamo MD is Referral Physician. celeste 12:14 Patient has correct armband on for positive identification. iw 12:14 No provider procedures requiring assistance completed. Patient did not have IV access iw during this emergency room visit. Administered Medications: 12:13 Drug: Decadron (dexamethasone) 10 mg Route: IM; Site: left ventrogluteal; iw 13:00 Follow up: Response: No adverse reaction ph 12:13 Drug: Valium (diazepam) 5 mg Route: PO; iw 13:00 Follow up: Response: No adverse reaction ph Medication: 11:15 VIS not applicable for this client. ph Outcome: 11:33 Discharge ordered by . celeste 12:14 Discharged to home ambulatory, with friend. iw 12:14 Condition: good 12:14 Discharge instructions given to patient, Instructed on discharge instructions, follow up and referral plans. medication usage, Demonstrated understanding of instructions, follow-up care, medications, Prescriptions given X 3. 12:14 Patient left the ED. iw Signatures: Dispatcher [employer] EDMS Jigar Cook MD MD cha Williams, Irene, RN RN Ai Arellano RN RN Julieth Bowman 4 Ruth Sierra RN RN ld1
--- NOTE | 2022-03-17 11:34 | EDPHYS ---
Physician Documentation [facility] Name: Alejandrina Russo Age: 67 yrs Sex: Female : 1955 Arrival Date: 03/17/2022 Time: 10:17 Bed 11 Private MD: [facility] Physician Jigar Cook HPI: 03/17 11:28 This 67 yrs old Female presents to ER via Ambulatory with complaints of Neck celeste Pain, <24hrs Old. 11:28 The patient or guardian complains of decreased range of motion, pain. The symptoms are celeste located diffusely. Onset: The symptoms/episode began/occurred 2 day(s) ago. Context: The problem was sustained at an unknown location, The neck injury/problem resulted from from unknown cause. Associated signs and symptoms: The patient has no apparent associated signs or symptoms. The pain does not radiate. Severity of symptoms: At their worst the symptoms were moderate. The patient has not experienced similar symptoms in the past. Historical: - Allergies: 10:39 Ibuprofen; ld1 10:39 Tylenol-Codeine #3; ld1 - Home Meds: 10:39 Xanax 0.5 mg Oral tab 1 tab 3 times per day [Active]; ld1 - PMHx: 10:39 Hypertensive disorder; Diverticulitis; Anxiety; ld1 - PSHx: 10:39 abdomen; R mastectomy; Spleenectomy; ld1 - Immunization history:: Adult Immunizations up to date, Client reports receiving the 2nd dose of the Covid vaccine. - Social history:: Smoking status: Patient denies any tobacco usage or history of. Patient/guardian denies using alcohol. - Family history:: not pertinent. ROS: 11:28 Constitutional: Negative for fever, chills, and weight loss, Eyes: Negative for injury, celeste pain, redness, and discharge, ENT: Negative for injury, pain, and discharge, Cardiovascular: Negative for chest pain, palpitations, and edema, Respiratory: Negative for shortness of breath, cough, wheezing, and pleuritic chest pain, Abdomen/GI: Negative for abdominal pain, nausea, vomiting, diarrhea, and constipation, Back: Negative for injury and pain, : Negative for injury, bleeding, discharge, and swelling, MS/Extremity: Negative for injury and deformity, Skin: Negative for injury, rash, and discoloration, Neuro: Negative for headache, weakness, numbness, tingling, and seizure. 11:28 Neck: Positive for pain with movement, pain at rest. Exam: 11:28 Constitutional: This is a well developed, well nourished patient who is awake, alert, celeste and in no acute distress. Head/Face: Normocephalic, atraumatic. Eyes: Pupils equal round and reactive to light, extra-ocular motions intact. Lids and lashes normal. Conjunctiva and sclera are non-icteric and not injected. Cornea within normal limits. Periorbital areas with no swelling, redness, or edema. ENT: Nares patent. No nasal discharge, no septal abnormalities noted. Tympanic membranes are normal and external auditory canals are clear. Oropharynx with no redness, swelling, or masses, exudates, or evidence of obstruction, uvula midline. Mucous membranes moist. Chest/axilla: Normal chest wall appearance and motion. Nontender with no deformity. No lesions are appreciated. Cardiovascular: Regular rate and rhythm with a normal S1 and S2. No gallops, murmurs, or rubs. Normal PMI, no JVD. No pulse deficits. Respiratory: Lungs have equal breath sounds bilaterally, clear to auscultation and percussion. No rales, rhonchi or wheezes noted. No increased work of breathing, no retractions or nasal flaring. Abdomen/GI: Soft, non-tender, with normal bowel sounds. No distension or tympany. No guarding or rebound. No evidence of tenderness throughout. Back: No spinal tenderness. No costovertebral tenderness. Full range of motion. Female : Normal external genitalia. Skin: Warm, dry with normal turgor. Normal color with no rashes, no lesions, and no evidence of cellulitis. MS/ Extremity: Pulses equal, no cyanosis. Neurovascular intact. Full, normal range of motion. Neuro: Awake and alert, GCS 15, oriented to person, place, time, and situation. Cranial nerves II-XII grossly intact. Motor strength 5/5 in all extremities. Sensory grossly intact. Cerebellar exam normal. Normal gait. Psych: Awake, alert, with orientation to person, place and time. Behavior, mood, and affect are within normal limits. 11:28 Neck: External neck: is normal, no acute changes, C-spine: appears grossly normal, no acute changes, ROM/movement: limited range of motion, that is mild. Vital Signs: 10:37 BP 130 / 90; Pulse 108; Resp 18; Temp 97.5(TE); Pulse Ox 95% on R/A; Weight 47.17 kg; ld1 Height 5 ft. 6 in. (167.64 cm); Pain 10; 10:37 Body Mass Index 16.79 (47.17 kg, 167.64 cm) ld1 MDM: 10:49 Patient medically screened. celeste 11:31 Differential diagnosis: Cervical Facet Syndrome Cervical Raiculopathy Cervical celeste Spondylosis cervical strain, Degenerative Disc Disease Neck Contusion torticollis. Data reviewed: vital signs, nurses notes, radiologic studies, CT scan. 03/17 10:52 Order name: CT C Spine celeste Administered Medications: 12:13 Drug: Decadron (dexamethasone) 10 mg Route: IM; Site: left ventrogluteal; iw 13:00 Follow up: Response: No adverse reaction ph 12:13 Drug: Valium (diazepam) 5 mg Route: PO; iw 13:00 Follow up: Response: No adverse reaction ph Disposition Summary: 03/17/22 11:33 Discharge Ordered Location: Home celeste Problem: new celeste Symptoms: have improved celeste Condition: Stable celeste Diagnosis - Sprain of ligaments of cervical spine, initial encounter celeste - Torticollis celeste Followup: celeste - With: Private Physician - When: 2 - 3 days - Reason: Recheck today's complaints, Continuance of care, Re-evaluation by your physician Followup: celeste - With: Hayden Alamo MD - When: 2 - 3 days - Reason: Recheck today's complaints, Continuance of care, Re-evaluation by your physician Discharge Instructions: - Discharge Summary Sheet celeste - Acute Torticollis, Adult celeste - Cervical Sprain celeste - Cervical Sprain, [id number] celeste - Cervical Strain and Sprain Rehab-SportsMed celeste Forms: - Medication Reconciliation Form celeste - Thank You Letter celeste - Antibiotic Education celeste - Prescription Opioid Use celeste Prescriptions: - dexamethasone 1 mg Oral tablet - take 2 tablet by ORAL route 2 times per day; 10 tablet; Refills: 0, Product celeste Selection Permitted - Valium 5 mg Oral Tablet - take 1 tablet by ORAL route every 8 hours As needed; 15 tablet; Refills: 0, celeste Product Selection Permitted - Tramadol 50 mg Oral Tablet - take 1 tablet by ORAL route every 8 hours as needed; 20 tablet; Refills: 0, celeste Product Selection Permitted Signatures: Dispatcher [employer] Jigar Chirinos MD MD cha Williams, Irene RN MITESH iw Ruth Sierra RN RN ld1 Ai Arellano RN
--- NOTE | 2022-03-17 11:36 | RAD REPORT ---
EXAM DESCRIPTION: CT - C Spine Wo Con - 03/17/2022 11:22 am CLINICAL HISTORY: Neck pain, chronic, degenerative changes on xray COMPARISON: No comparisons TECHNIQUE: CT Scan was obtained of the cervical spine without contrast. Reformats were provided in t he sagittal and coronal plane. FINDINGS: No acute fracture of the cervical spine. 3 millimeters of anterolisthesis of C3 on C4 is l ikely related to degenerative changes. Fusion at C4-5 may be congenital developmental. No prevertebra l edema. Carotid artery calcifications. Coarse calcification in the right lobe of the thyroid. Emphys mery. Multiple nodular densities in the upper lungs. Apical scarring. Multilevel cervical spondylosis. Varying degrees of neural foraminal narrowing noted. This is most ad vanced at C5-6 and C6-7 where neural foraminal narrowing is severe bilaterally. It is also severe on the left at C3-4 and C4-5. Mild to moderate central spinal stenosis is suspected at C4-5 and C5-6. IMPRESSION: 1. No fracture or traumatic malalignment of the cervical spine. Moderate to severe cerv ical spondylosis. 2. Apical nodularity likely secondary to scarring. There is evidence of emphysema. Twelve month follo w-up chest CT is recommended. The USPTF recommends annual screening for lung cancer with low-dose CT (LDCT) in adults aged 50 to 80 years who have a 20 pack-year smoking history and currently smoke or h ave quit within the past 15 years.
[2022-03-17] MEDS ORDERED: DIAZEPAM 5 MG TABLET ONE (11:56)
[2022-03-17] MEDS ORDERED: dexAMETHasone 10 MG/ML VIAL ONE (11:57)
[2022-03-17 12:20] VITALS: BP 130/90; TEMP 97.5; O2SAT 95
== END 2022-03-17 12:14 | disposition home or self-care (01) ==
LOC: ER 10:13
DX: S13.4XXA Sprain of ligaments of cervical spine, initial encounter (principal); M43.6 Torticollis; Z88.5 Allergy status to narcotic agent; Z88.6 Allergy status to analgesic agent
CPT/HCPCS: 72125; 96372; 99283; J1100